=== PATIENT | male | born 1995 | race Caucasian/White ===

== ENCOUNTER 2017-08-18 17:28 | Inpatient (IN) | payer MEDICAID ==
[~2017-08-18] VITALS: Ht 162.6 cm; Wt 68.7 kg
[~2017-08-18 17:28] MED LIST: BENZ1TAB10 PO; DSS100 PO; METO25 PO; PALI234D IM; TRAZ-144 PO
[2017-08-18] MEDS ORDERED: INFLUENZA VIRUS VACCINE QVS 2017-18 (3YR+)/PF 60 MCG/0.5 ML SYRINGE IM ONE (23:45)
[2017-08-19] MEDS: ZOLPIDEM TARTRATE 10 MG TABLET PO PRN (00:15)
[2017-08-19 02:30] VITALS: BP 109/72
[2017-08-19] MEDS ORDERED: PETROLATUM,WHITE 71 GM JELLY TP PRN (07:45)
[2017-08-19] MEDS ORDERED: ACETAMINOPHEN 325 MG TABLET PO PRN (07:45)
[2017-08-19] MEDS ORDERED: LOPERAMIDE HCL 2 MG CAPSULE PO PRN (07:45)
[2017-08-19] MEDS ORDERED: ALBUTEROL SULFATE HFA 90 MCG/PUFF 8 GM INHALER IH PRN (07:45)
[2017-08-19] MEDS ORDERED: MAG HYDROX/AL HYDROX/SIMETH ES 30 ML SUSPENSION UDCUP PO PRN (07:45)
[2017-08-19] MEDS ORDERED: BACITRACIN 28.4 GM OINTMENT TP PRN (07:45)
[2017-08-19] MEDS ORDERED: BENZOCAINE/MENTHOL LOZENGE MM PRN (07:45)
[2017-08-19] MEDS ORDERED: ONDANSETRON HCL 4 MG TABLET PO PRN (07:45)
[2017-08-19] MEDS ORDERED: IBUPROFEN 600 MG TABLET PO PRN (07:45)
[2017-08-19] MEDS ORDERED: CloNIDine HCL 0.1 MG TABLET PO PRN (07:45)
[2017-08-19 08:36] LABS: BASOPHILS % (AUTO) 0.6 % (0.0-2.0); HEMATOCRIT 48.9 % (41-53); HEMOGLOBIN 16.7 g/dL (13.5-17.5); LYMPHOCYTES # (AUTO) 2.1 K/uL (1.0-4.8); LYMPHOCYTES % (AUTO) 21.1 % (22.0-44.0); MEAN CORPUSCULAR HEMOGLOBIN 31.2 pg (26.0-34.0); MEAN CORPUSCULAR HGB CONC 34.2 G/dL (31.0-37.0); MEAN CORPUSCULAR VOLUME 91 fL (80-100); MONOCYTES # (AUTO) 1.1 K/uL (0.1-1.0); MONOCYTES % (AUTO) 11.3 % (2.0-9.0); NEUTROPHILS # (AUTO) 6.1 K/uL (1.8-7.7); PLATELET COUNT (AUTO) 251 K/uL (150-450); RED BLOOD CELL COUNT(AUTO) 5.36 MIL/uL (4.50-5.90); RED CELL DISTRIBUTION WIDTH 13.5 % (11.5-14.5); WHITE BLOOD COUNT (AUTO) 9.9 K/uL (4.5-11.0)
[2017-08-19 08:39] VITALS: BP 124/75
[2017-08-19] MEDS: LORazepam 2 MG TABLET PO PRN (09:08)
[2017-08-19] MEDS: HALOPERIDOL 5 MG TABLET PO PRN (09:09)
[2017-08-19 09:18] LABS: ALANINE AMINOTRANSFERASE 75 U/L (12-78); ALBUMIN 4.9 g/dL (3.4-5.0); ANION GAP 10 mmol/L (8-16); ASPARTATE AMINOTRANSFERASE 34 U/L (15-37); BILIRUBIN,TOTAL 2.3 mg/dL (0.1-1.0); CALCIUM, TOTAL 9.6 mg/dL (8.8-10.5); CARBON DIOXIDE 29 mmol/L (22-29); CHLORIDE 101 mmol/L (98-107); CHOL/HDL RATIO 2.4 (4.2-7.3); CREATININE 0.96 mg/dL (0.60-1.30); GLOMERULAR FILTR. RATE CALC > 60 mL/min (>60); POTASSIUM 3.5 mmol/L (3.5-5.1); SODIUM SERUM 140 mmol/L (136-145); THYROID STIMULATING HORMONE 3.31 uIU/mL (0.36-3.74); TOTAL PROTEIN, SERUM 8.6 g/dL (6.4-8.2); UREA NITROGEN, BLOOD 19 mg/dL (7-18)
[2017-08-19 11:37] LABS: HEMOGLOBIN A1C 5.5 % (4.5-6.2)
[2017-08-19 16:16] VITALS: BP 122/70
[2017-08-20 06:40] VITALS: BP 130/83
[2017-08-20 08:22] VITALS: BP 132/87
[2017-08-20] MEDS: LORazepam 2 MG TABLET PO PRN (09:45)
[2017-08-20] MEDS: HALOPERIDOL 5 MG TABLET PO PRN (09:45)
[2017-08-20 16:12] VITALS: BP 127/88
[2017-08-20] MEDS: TraZODone HCL 50 MG TABLET PO SCH (20:46)
[2017-08-20] MEDS: BENZTROPINE MESYLATE 1 MG TABLET PO SCH (20:46)
[2017-08-21 06:00] VITALS: BP 138/83
[2017-08-21] MEDS: LORazepam 2 MG TABLET PO PRN ×2 (06:00→16:43)
[2017-08-21 08:16] VITALS: BP 122/88
[2017-08-21] MEDS ORDERED: PALIPERIDONE PALMITATE 234 MG/1.5 ML SYRINGE IM SCH (09:00)
[2017-08-21 16:02] VITALS: BP 130/72
[2017-08-21] MEDS: TraZODone HCL 50 MG TABLET PO SCH (20:09)
[2017-08-21] MEDS: BENZTROPINE MESYLATE 1 MG TABLET PO SCH (20:09)
[2017-08-22 00:52] VITALS: BP 112/65
[2017-08-22] MEDS: LORazepam 2 MG TABLET PO PRN ×2 (03:40→16:31)
[2017-08-22 08:10] VITALS: BP 132/91
[2017-08-22] MEDS: MAGNESIUM HYDROXIDE SUSPENSION 30 ML UDCUP PO PRN (14:27)
[2017-08-22 16:25] VITALS: BP 140/86
[2017-08-22] MEDS: BENZTROPINE MESYLATE 1 MG TABLET PO SCH (20:25)
[2017-08-22] MEDS: TraZODone HCL 50 MG TABLET PO SCH (20:25)
[2017-08-23] MEDS: MAGNESIUM CITRATE 300 ML ORAL SOLUTION PO PRN (06:18)
[2017-08-23 06:25] VITALS: BP 140/87
[2017-08-23 09:33] VITALS: BP 131/88
[2017-08-23] MEDS: MAGNESIUM HYDROXIDE SUSPENSION 30 ML UDCUP PO PRN (10:58)
[2017-08-23 16:34] VITALS: BP 132/80
[2017-08-23] MEDS: BENZTROPINE MESYLATE 1 MG TABLET PO SCH (20:01)
[2017-08-23] MEDS: TraZODone HCL 50 MG TABLET PO SCH (20:01)
[2017-08-23] MEDS: ZOLPIDEM TARTRATE 10 MG TABLET PO PRN (22:12)
[2017-08-24 06:39] VITALS: BP 130/83
[2017-08-24 09:36] VITALS: BP 137/101
[2017-08-24 16:10] VITALS: BP 120/80
[2017-08-24] MEDS: BENZTROPINE MESYLATE 1 MG TABLET PO SCH (20:10)
[2017-08-24] MEDS: TraZODone HCL 50 MG TABLET PO SCH (20:10)
[2017-08-25 00:38] VITALS: BP 125/78
[2017-08-25] MEDS: LORazepam 2 MG TABLET PO PRN (00:44)
[2017-08-25] MEDS: HALOPERIDOL 5 MG TABLET PO PRN (00:44)
[2017-08-25 08:08] VITALS: BP 133/85
[2017-08-25 16:28] VITALS: BP 129/78
[2017-08-25] MEDS: BENZTROPINE MESYLATE 1 MG TABLET PO SCH (20:09)
[2017-08-25] MEDS: TraZODone HCL 50 MG TABLET PO SCH (20:09)
[2017-08-26 05:52] VITALS: BP 140/78
[2017-08-26 08:30] VITALS: BP 144/81
[2017-08-26] MEDS: MAGNESIUM CITRATE 300 ML ORAL SOLUTION PO PRN (09:49)
[2017-08-26 16:18] VITALS: BP 153/85
== END 2017-08-26 18:15 | disposition home or self-care (01) | DRG 750 ==
LOC: B2S 22:23
PROVIDERS: ADMIT Psychiatry & Neurology Psychiatry; ATTEND Psychiatry & Neurology Psychiatry
DX: F25.9 Schizoaffective disorder, unspecified (principal); F84.5 Asperger's syndrome; F12.90 Cannabis use, unspecified, uncomplicated; G47.00 Insomnia, unspecified; K59.00 Constipation, unspecified; R51 Headache; Z28.21 Immunization not carried out because of patient refusal; Z71.51 Drug abuse counseling and surveillance of drug abuser
CPT/HCPCS: 83036; 84439; 84443; 84520; 90471

== ENCOUNTER 2017-09-23 02:26 | Inpatient (IN) | payer MEDICAID ==
[~2017-09-23] VITALS: Ht 167.6 cm; Wt 65.8 kg
[~2017-09-23 02:26] MED LIST changes: -DSS100 PO; -METO25 PO
[2017-09-23] MEDS ORDERED: LORazepam 1 MG TABLET PO PRN ×2 (03:00→07:00)
[2017-09-23 04:20] VITALS: BP 139/75
[2017-09-23] MEDS ORDERED: INFLUENZA VIRUS VACCINE QVS 2017-18 (3YR+)/PF 60 MCG/0.5 ML SYRINGE IM ONE (04:30)
[2017-09-23] MEDS: LORazepam 2 MG TABLET PO PRN ×3 (04:54→20:31)
[2017-09-23] MEDS: HALOPERIDOL 5 MG TABLET PO PRN ×2 (04:54→16:03)
[2017-09-23] MEDS ORDERED: CloNIDine HCL 0.1 MG TABLET PO PRN (07:00)
[2017-09-23] MEDS ORDERED: ONDANSETRON HCL 4 MG TABLET PO PRN (07:00)
[2017-09-23] MEDS ORDERED: ALBUTEROL SULFATE HFA 90 MCG/PUFF 8 GM INHALER IH PRN (07:00)
[2017-09-23] MEDS ORDERED: ACETAMINOPHEN 325 MG TABLET PO PRN (07:00)
[2017-09-23] MEDS ORDERED: PETROLATUM,WHITE 71 GM JELLY TP PRN (07:00)
[2017-09-23] MEDS ORDERED: BENZOCAINE/MENTHOL LOZENGE MM PRN (07:00)
[2017-09-23] MEDS ORDERED: BACITRACIN 28.4 GM OINTMENT TP PRN (07:00)
[2017-09-23] MEDS ORDERED: MAG HYDROX/AL HYDROX/SIMETH ES 30 ML SUSPENSION UDCUP PO PRN (07:00)
[2017-09-23] MEDS ORDERED: LOPERAMIDE HCL 2 MG CAPSULE PO PRN (07:00)
[2017-09-23 08:20] VITALS: BP 132/83
[2017-09-23] MEDS ORDERED: PALI234D IM (08:53)
[2017-09-23 16:41] VITALS: BP 135/81
[2017-09-23] MEDS: ZOLPIDEM TARTRATE 10 MG TABLET PO PRN (20:31)
[2017-09-24 07:37] VITALS: BP 138/64
[2017-09-24 07:58] LABS: BASOPHILS # (AUTO) 0.03 K/uL (0.00-0.20); BASOPHILS % (AUTO) 0.3 % (0.0-2.0); EOSINOPHILS # (AUTO) 0.09 K/uL (0.00-0.70); EOSINOPHILS % (AUTO) 0.86 % (1.0-6.0); HEMOGLOBIN 14.6 g/dL (13.5-17.5); LYMPHOCYTES # (AUTO) 1.1 K/uL (1.0-4.8); LYMPHOCYTES % (AUTO) 10.8 % (22.0-44.0); MEAN CORPUSCULAR HGB CONC 33.9 G/dL (31.0-37.0); MEAN CORPUSCULAR VOLUME 89 fL (80-100); MONOCYTES # (AUTO) 0.9 K/uL (0.1-1.0); MONOCYTES % (AUTO) 9.2 % (2.0-9.0); NEUTROPHILS % (AUTO) 78.9 % (40.0-70.0); PLATELET COUNT (AUTO) 209 K/uL (150-450); RED BLOOD CELL COUNT(AUTO) 4.84 MIL/uL (4.50-5.90); RED CELL DISTRIBUTION WIDTH 13.3 % (11.5-14.5)
[2017-09-24 08:20] LABS: ALANINE AMINOTRANSFERASE 25 U/L (12-78); ALBUMIN 4.5 g/dL (3.4-5.0); ALKALINE PHOSPHATASE 57 U/L (46-116); ANION GAP 12 mmol/L (8-16); ASPARTATE AMINOTRANSFERASE 17 U/L (15-37); BILIRUBIN,TOTAL 1.4 mg/dL (0.1-1.0); CALCIUM, TOTAL 9.4 mg/dL (8.8-10.5); CARBON DIOXIDE 27 mmol/L (22-29); CHLORIDE 102 mmol/L (98-107); CHOL/HDL RATIO 2.7 (4.2-7.3); CHOLESTEROL 162 mg/dL (131-200); CREATININE 0.92 mg/dL (0.60-1.30); FREE T4 (FREE THYROXINE) 1.42 ng/dL (0.76-1.46); GLOMERULAR FILTR. RATE CALC > 60 mL/min (>60); GLUCOSE,RANDOM 112 mg/dL (70-110); HDL CHOLESTEROL 61 mg/dL (40-60); LDL CHOL (CALC.) 94 mg/dL (0-130); POTASSIUM 3.6 mmol/L (3.5-5.1); SODIUM SERUM 141 mmol/L (136-145); TOTAL PROTEIN, SERUM 7.7 g/dL (6.4-8.2); TRIGLYCERIDES 36 mg/dL (15-150); UREA NITROGEN, BLOOD 16 mg/dL (7-18)
[2017-09-24 08:33] VITALS: BP 132/85
[2017-09-24] MEDS: HALOPERIDOL 5 MG TABLET PO PRN ×2 (10:42→16:03)
[2017-09-24] MEDS: LORazepam 2 MG TABLET PO PRN ×3 (10:42→20:40)
[2017-09-24 16:00] VITALS: BP 130/81
[2017-09-24] MEDS: TraZODone HCL 50 MG TABLET PO SCH (20:39)
[2017-09-24] MEDS: BENZTROPINE MESYLATE 1 MG TABLET PO SCH (20:39)
[2017-09-24] MEDS: ZOLPIDEM TARTRATE 10 MG TABLET PO PRN (20:40)
[2017-09-25 07:03] VITALS: BP 129/86
[2017-09-25 08:52] VITALS: BP 125/64
[2017-09-25] MEDS: HALOPERIDOL 5 MG TABLET PO PRN ×2 (08:53→16:06)
[2017-09-25] MEDS: LORazepam 2 MG TABLET PO PRN ×3 (08:53→20:56)
[2017-09-25 16:00] VITALS: BP 121/68
[2017-09-25] MEDS: TraZODone HCL 50 MG TABLET PO SCH (20:36)
[2017-09-25] MEDS: BENZTROPINE MESYLATE 1 MG TABLET PO SCH (20:36)
[2017-09-25] MEDS: ZOLPIDEM TARTRATE 10 MG TABLET PO PRN (20:55)
[2017-09-26 06:08] VITALS: BP 125/72
[2017-09-26 08:07] VITALS: BP 137/63
[2017-09-26 16:15] VITALS: BP 126/72
[2017-09-26] MEDS: MAGNESIUM HYDROXIDE SUSPENSION 30 ML UDCUP PO PRN (19:02)
[2017-09-26] MEDS: BENZTROPINE MESYLATE 1 MG TABLET PO SCH (20:21)
[2017-09-26] MEDS: TraZODone HCL 50 MG TABLET PO SCH (20:21)
[2017-09-26] MEDS: ZOLPIDEM TARTRATE 10 MG TABLET PO PRN (20:21)
[2017-09-27] MEDS: MAGNESIUM HYDROXIDE SUSPENSION 30 ML UDCUP PO PRN (06:35)
[2017-09-27 06:57] VITALS: BP 115/63
[2017-09-27 08:38] VITALS: BP 146/75
[2017-09-27 16:00] VITALS: BP 137/73
[2017-09-27] MEDS: HALOPERIDOL 5 MG TABLET PO PRN (16:18)
[2017-09-27] MEDS: LORazepam 2 MG TABLET PO PRN (16:18)
[2017-09-27] MEDS: BENZTROPINE MESYLATE 1 MG TABLET PO SCH (20:41)
[2017-09-27] MEDS: TraZODone HCL 50 MG TABLET PO SCH (20:41)
[2017-09-28 05:31] VITALS: BP 132/76
[2017-09-28 08:35] VITALS: BP 121/67
[2017-09-28 16:00] VITALS: BP 130/74
[2017-09-28] MEDS: HALOPERIDOL 5 MG TABLET PO PRN (16:15)
[2017-09-28] MEDS: LORazepam 2 MG TABLET PO PRN (16:15)
[2017-09-28] MEDS: BENZTROPINE MESYLATE 1 MG TABLET PO SCH (20:32)
[2017-09-28] MEDS: TraZODone HCL 50 MG TABLET PO SCH (20:32)
[2017-09-29 07:04] VITALS: BP 125/75
[2017-09-29] MEDS: LORazepam 2 MG TABLET PO PRN ×2 (08:02→15:52)
[2017-09-29] MEDS: HALOPERIDOL 5 MG TABLET PO PRN ×2 (08:02→15:52)
[2017-09-29 08:08] VITALS: BP 147/76
[2017-09-29 16:00] VITALS: BP 125/77
[2017-09-29] MEDS: TraZODone HCL 50 MG TABLET PO SCH (20:01)
[2017-09-29] MEDS: BENZTROPINE MESYLATE 1 MG TABLET PO SCH (20:01)
[2017-09-29] MEDS: MAGNESIUM HYDROXIDE SUSPENSION 30 ML UDCUP PO PRN (20:32)
[2017-09-30 07:15] VITALS: BP_DIAS 127
[2017-09-30 08:22] VITALS: BP 138/66
[2017-09-30] MEDS: PALIPERIDONE PALMITATE 234 MG/1.5 ML SYRINGE IM SCH (12:56)
[2017-09-30] MEDS: SODIUM CHLORIDE 0.65% 44 ML NASAL SPRAY NASAL PRN (13:03)
[2017-09-30 16:00] VITALS: BP 121/83
[2017-09-30] MEDS: HALOPERIDOL 5 MG TABLET PO PRN (16:57)
[2017-09-30] MEDS: LORazepam 2 MG TABLET PO PRN (16:57)
[2017-09-30] MEDS: BENZTROPINE MESYLATE 1 MG TABLET PO SCH (20:49)
[2017-09-30] MEDS: TraZODone HCL 50 MG TABLET PO SCH (20:49)
[2017-10-01 00:50] VITALS: BP 124/63
[2017-10-01 08:15] VITALS: BP 134/69
[2017-10-01 16:00] VITALS: BP 135/88
[2017-10-01] MEDS: LORazepam 2 MG TABLET PO PRN (16:15)
[2017-10-01] MEDS: HALOPERIDOL 5 MG TABLET PO PRN (16:15)
[2017-10-01] MEDS: BENZTROPINE MESYLATE 1 MG TABLET PO SCH (20:28)
[2017-10-01] MEDS: TraZODone HCL 50 MG TABLET PO SCH (20:28)
[2017-10-02 06:13] VITALS: BP 130/83
[2017-10-02] MEDS: SODIUM CHLORIDE 0.65% 44 ML NASAL SPRAY NASAL PRN (06:48)
[2017-10-02 08:22] VITALS: BP 131/71
[2017-10-02 16:27] VITALS: BP 133/76
[2017-10-02] MEDS: HALOPERIDOL 5 MG TABLET PO PRN (17:00)
[2017-10-02] MEDS: LORazepam 2 MG TABLET PO PRN (17:00)
[2017-10-02] MEDS: BENZTROPINE MESYLATE 1 MG TABLET PO SCH (21:08)
[2017-10-02] MEDS: ZOLPIDEM TARTRATE 10 MG TABLET PO PRN (21:09)
[2017-10-02] MEDS: TraZODone HCL 50 MG TABLET PO SCH (21:09)
[2017-10-03 08:09] VITALS: BP 132/84
[2017-10-03 16:00] VITALS: BP 136/87
[2017-10-03] MEDS: MAGNESIUM HYDROXIDE SUSPENSION 30 ML UDCUP PO PRN (18:00)
[2017-10-03] MEDS: ZOLPIDEM TARTRATE 10 MG TABLET PO PRN (20:28)
[2017-10-03] MEDS: TraZODone HCL 50 MG TABLET PO SCH (20:28)
[2017-10-03] MEDS: BENZTROPINE MESYLATE 1 MG TABLET PO SCH (20:28)
[2017-10-04 05:13] VITALS: BP 127/64
[2017-10-04 08:18] VITALS: BP 136/81
[2017-10-04] MEDS: MAGNESIUM HYDROXIDE SUSPENSION 30 ML UDCUP PO PRN (13:29)
[2017-10-04 16:00] VITALS: BP 132/83
[2017-10-04] MEDS: IBUPROFEN 600 MG TABLET PO PRN (17:02)
[2017-10-04] MEDS: HALOPERIDOL 5 MG TABLET PO PRN (17:53)
[2017-10-04] MEDS: LORazepam 2 MG TABLET PO PRN (17:53)
[2017-10-04] MEDS: BENZTROPINE MESYLATE 1 MG TABLET PO SCH (20:33)
[2017-10-04] MEDS: ZOLPIDEM TARTRATE 10 MG TABLET PO PRN (20:33)
[2017-10-04] MEDS: TraZODone HCL 50 MG TABLET PO SCH (20:33)
[2017-10-05 07:10] VITALS: BP 128/85
[2017-10-05 08:12] VITALS: BP 110/67
[2017-10-05] MEDS: LORazepam 2 MG TABLET PO PRN ×2 (08:30→16:22)
[2017-10-05] MEDS: HALOPERIDOL 5 MG TABLET PO PRN ×2 (08:30→16:22)
[2017-10-05 16:00] VITALS: BP 116/72
[2017-10-05] MEDS: TraZODone HCL 50 MG TABLET PO SCH (20:58)
[2017-10-05] MEDS: BENZTROPINE MESYLATE 1 MG TABLET PO SCH (20:58)
[2017-10-06 05:43] VITALS: BP 118/67
[2017-10-06] MEDS: HALOPERIDOL 5 MG TABLET PO PRN (09:21)
[2017-10-06] MEDS: LORazepam 2 MG TABLET PO PRN (09:21)
[2017-10-06 09:37] VITALS: BP 125/80
[2017-10-06 16:19] VITALS: BP 126/66
[2017-10-06] MEDS: BENZTROPINE MESYLATE 1 MG TABLET PO SCH (20:17)
[2017-10-06] MEDS: TraZODone HCL 50 MG TABLET PO SCH (20:17)
[2017-10-07 00:17] VITALS: BP 118/74
[2017-10-07] MEDS: LORazepam 2 MG TABLET PO PRN ×2 (08:15→16:58)
[2017-10-07 08:16] VITALS: BP 117/62
[2017-10-07] MEDS: HALOPERIDOL 5 MG TABLET PO PRN ×2 (09:43→16:59)
[2017-10-07 16:00] VITALS: BP 118/68
[2017-10-07] MEDS: TraZODone HCL 50 MG TABLET PO SCH (21:10)
[2017-10-07] MEDS: BENZTROPINE MESYLATE 1 MG TABLET PO SCH (21:10)
[2017-10-08 06:41] VITALS: BP 107/63
[2017-10-08 08:52] VITALS: BP 93/55
[2017-10-08 16:00] VITALS: BP 127/70
[2017-10-08] MEDS: TraZODone HCL 50 MG TABLET PO SCH (20:10)
[2017-10-08] MEDS: ZOLPIDEM TARTRATE 10 MG TABLET PO PRN (20:10)
[2017-10-08] MEDS: BENZTROPINE MESYLATE 1 MG TABLET PO SCH (20:10)
[2017-10-09] MEDS: SODIUM CHLORIDE 0.65% 44 ML NASAL SPRAY NASAL PRN (02:35)
[2017-10-09 06:38] VITALS: BP 122/68
[2017-10-09] MEDS: LORazepam 2 MG TABLET PO PRN ×2 (08:08→16:31)
[2017-10-09] MEDS: HALOPERIDOL 5 MG TABLET PO PRN ×2 (08:08→16:31)
[2017-10-09 08:09] VITALS: BP 127/64
[2017-10-09 16:00] VITALS: BP 114/70
[2017-10-09] MEDS: BENZTROPINE MESYLATE 1 MG TABLET PO SCH (20:48)
[2017-10-09] MEDS: TraZODone HCL 50 MG TABLET PO SCH (20:48)
[2017-10-09] MEDS: ZOLPIDEM TARTRATE 10 MG TABLET PO PRN (20:49)
[2017-10-10 06:25] VITALS: BP 101/60
[2017-10-10 08:22] VITALS: BP 110/86
[2017-10-10 16:11] VITALS: BP 117/72
[2017-10-10] MEDS: HALOPERIDOL 5 MG TABLET PO PRN (16:49)
[2017-10-10] MEDS: LORazepam 2 MG TABLET PO PRN (16:49)
[2017-10-10] MEDS: ZOLPIDEM TARTRATE 10 MG TABLET PO PRN (21:08)
[2017-10-10] MEDS: BENZTROPINE MESYLATE 1 MG TABLET PO SCH (21:08)
[2017-10-10] MEDS: TraZODone HCL 50 MG TABLET PO SCH (21:08)
[2017-10-11 06:41] VITALS: BP 122/74
[2017-10-11 09:41] VITALS: BP 122/88
[2017-10-11] MEDS: LORazepam 2 MG TABLET PO PRN ×2 (16:19→20:31)
[2017-10-11] MEDS: HALOPERIDOL 5 MG TABLET PO PRN ×2 (16:19→21:26)
[2017-10-11 16:30] VITALS: BP 135/85
[2017-10-11] MEDS: BENZTROPINE MESYLATE 1 MG TABLET PO SCH (20:31)
[2017-10-11] MEDS: TraZODone HCL 50 MG TABLET PO SCH (20:31)
[2017-10-11] MEDS: ZOLPIDEM TARTRATE 10 MG TABLET PO PRN (20:32)
[2017-10-12 05:10] VITALS: BP 101/64
[2017-10-12 08:09] VITALS: BP 123/82
[2017-10-12 09:02] LABS: AMPHET/METH SCREEN,URINE NEGATIVE (NEGATIVE); BARBITURATE SCREEN, URINE NEGATIVE (NEGATIVE); BENZODIAZEPINES SCREEN,URINE NEGATIVE (NEGATIVE); CANNABINOID SCREEN,URINE NEGATIVE (NEGATIVE); COCAINE SCREEN,URINE NEGATIVE (NEGATIVE); METHADONE SCREEN, URINE NEGATIVE (NEGATIVE); OPIATE SCREEN,URINE NEGATIVE (NEGATIVE)
[2017-10-12 09:04] LABS: PHENCYCLIDINE SCREEN,URINE NEGATIVE (NEGATIVE)
[2017-10-12 09:27] LABS: APPEARANCE,URINE CLEAR (CLEAR); BILIRUBIN,URINE NEGATIVE (NEGATIVE); GLUCOSE, URINE (UA) NEGATIVE (NEGATIVE); KETONES,URINE NEGATIVE (NEGATIVE); LEUKOCYTE ESTERASE ,URINE NEGATIVE (NEGATIVE); NITRATE,URINE NEGATIVE (NEGATIVE); OCCULT BLOOD,URINE NEGATIVE (NEGATIVE); PH,URINE 6.5 (5.0-8.0); PROTEIN,URINE NEGATIVE (NEGATIVE); UROBILINOGEN,URINE 0.2 mg/dL (<=1.0)
[2017-10-12 16:00] VITALS: BP 114/65
[2017-10-12] MEDS: HALOPERIDOL 5 MG TABLET PO PRN (16:07)
[2017-10-12] MEDS: LORazepam 2 MG TABLET PO PRN (16:07)
[2017-10-12] MEDS: TraZODone HCL 50 MG TABLET PO SCH (20:38)
[2017-10-12] MEDS: BENZTROPINE MESYLATE 1 MG TABLET PO SCH (20:38)
[2017-10-13 07:24] VITALS: BP 118/57
[2017-10-13 08:09] VITALS: BP 112/67
[2017-10-13 16:00] VITALS: BP 119/66
[2017-10-13] MEDS: LORazepam 2 MG TABLET PO PRN (16:41)
[2017-10-13] MEDS: HALOPERIDOL 5 MG TABLET PO PRN (16:41)
[2017-10-13] MEDS: BENZTROPINE MESYLATE 1 MG TABLET PO SCH (20:50)
[2017-10-13] MEDS: TraZODone HCL 50 MG TABLET PO SCH (20:50)
[2017-10-14 06:40] VITALS: BP 116/77
[2017-10-14 08:14] VITALS: BP 129/82
[2017-10-14] MEDS ORDERED: TUBERCULIN, PURIFIED PROTEIN DERIVATIVE 5 TU/0.1 ML SYG ID ONE (13:15)
[2017-10-14 16:00] VITALS: BP 123/76
[2017-10-14] MEDS: HALOPERIDOL 5 MG TABLET PO PRN (16:10)
[2017-10-14] MEDS: LORazepam 2 MG TABLET PO PRN ×2 (16:11→20:39)
[2017-10-14] MEDS: BENZTROPINE MESYLATE 1 MG TABLET PO SCH (20:39)
[2017-10-14] MEDS: TraZODone HCL 50 MG TABLET PO SCH (20:39)
[2017-10-15 03:24] VITALS: BP 111/73
[2017-10-15] MEDS: ZOLPIDEM TARTRATE 10 MG TABLET PO PRN ×2 (03:27→23:45)
[2017-10-15 09:14] VITALS: BP 114/57
[2017-10-15 16:54] VITALS: BP 124/70
[2017-10-15] MEDS: TraZODone HCL 50 MG TABLET PO SCH (20:24)
[2017-10-15] MEDS: BENZTROPINE MESYLATE 1 MG TABLET PO SCH (20:24)
[2017-10-16 00:09] VITALS: BP 127/74
[2017-10-16 08:27] VITALS: BP 113/72
[2017-10-16 16:00] VITALS: BP 118/68
[2017-10-16] MEDS: TraZODone HCL 50 MG TABLET PO SCH (20:28)
[2017-10-16] MEDS: BENZTROPINE MESYLATE 1 MG TABLET PO SCH (20:28)
[2017-10-16] MEDS: ZOLPIDEM TARTRATE 10 MG TABLET PO PRN (20:28)
[2017-10-17 08:16] VITALS: BP 115/69
[2017-10-17] MEDS: HALOPERIDOL 5 MG TABLET PO PRN ×2 (09:26→16:49)
[2017-10-17] MEDS: LORazepam 2 MG TABLET PO PRN ×2 (09:26→16:48)
[2017-10-17 16:00] VITALS: BP 113/74
[2017-10-17] MEDS: BENZTROPINE MESYLATE 1 MG TABLET PO SCH (20:38)
[2017-10-17] MEDS: TraZODone HCL 50 MG TABLET PO SCH (20:38)
[2017-10-18 06:26] VITALS: BP 125/75
[2017-10-18 08:00] VITALS: BP 110/67
[2017-10-18 16:00] VITALS: BP 120/70
[2017-10-18] MEDS: ZOLPIDEM TARTRATE 10 MG TABLET PO PRN (20:20)
[2017-10-18] MEDS: TraZODone HCL 50 MG TABLET PO SCH (20:20)
[2017-10-18] MEDS: BENZTROPINE MESYLATE 1 MG TABLET PO SCH (20:20)
[2017-10-19 06:09] VITALS: BP 126/82
[2017-10-19 08:09] VITALS: BP 132/76
[2017-10-19 16:24] VITALS: BP 121/80
[2017-10-19] MEDS: LORazepam 2 MG TABLET PO PRN (18:54)
[2017-10-19] MEDS: BENZTROPINE MESYLATE 1 MG TABLET PO SCH (21:16)
[2017-10-19] MEDS: TraZODone HCL 50 MG TABLET PO SCH (21:16)
[2017-10-20 06:51] VITALS: BP 115/68
[2017-10-20 08:08] VITALS: BP 109/72
[2017-10-20] MEDS: LORazepam 2 MG TABLET PO PRN (10:27)
[2017-10-20 16:56] VITALS: BP 114/85
[2017-10-20] MEDS: BENZTROPINE MESYLATE 1 MG TABLET PO SCH (20:34)
[2017-10-20] MEDS: TraZODone HCL 50 MG TABLET PO SCH (20:34)
[2017-10-20] MEDS: ZOLPIDEM TARTRATE 10 MG TABLET PO PRN (20:56)
[2017-10-21 05:59] VITALS: BP 108/75
[2017-10-21 09:36] VITALS: BP 91/57
[2017-10-21 16:19] VITALS: BP 118/66
[2017-10-21] MEDS: BENZTROPINE MESYLATE 1 MG TABLET PO SCH (20:12)
[2017-10-21] MEDS: TraZODone HCL 50 MG TABLET PO SCH (20:12)
[2017-10-21] MEDS: LORazepam 2 MG TABLET PO PRN (20:21)
[2017-10-21] MEDS: ZOLPIDEM TARTRATE 10 MG TABLET PO PRN (20:55)
[2017-10-22 06:18] VITALS: BP 110/70
[2017-10-22 08:15] VITALS: BP 120/67
[2017-10-22 16:16] VITALS: BP 117/63
[2017-10-22] MEDS: TraZODone HCL 50 MG TABLET PO SCH (20:44)
[2017-10-22] MEDS: BENZTROPINE MESYLATE 1 MG TABLET PO SCH (20:45)
[2017-10-22] MEDS: ZOLPIDEM TARTRATE 10 MG TABLET PO PRN (22:20)
[2017-10-23 06:17] VITALS: BP 118/81
[2017-10-23 09:20] VITALS: BP 100/60
[2017-10-23] MEDS: IBUPROFEN 600 MG TABLET PO PRN (09:37)
[2017-10-23 16:48] VITALS: BP 111/66
[2017-10-23] MEDS: BENZTROPINE MESYLATE 1 MG TABLET PO SCH (20:31)
[2017-10-23] MEDS: TraZODone HCL 50 MG TABLET PO SCH (20:31)
[2017-10-23] MEDS: ZOLPIDEM TARTRATE 10 MG TABLET PO PRN (20:32)
[2017-10-24 06:30] VITALS: BP 115/66
[2017-10-24 09:36] VITALS: BP 105/65
[2017-10-24 17:11] VITALS: BP 121/75
[2017-10-24] MEDS: BENZTROPINE MESYLATE 1 MG TABLET PO SCH (20:06)
[2017-10-24] MEDS: TraZODone HCL 50 MG TABLET PO SCH (20:06)
[2017-10-25 00:39] VITALS: BP 136/90
[2017-10-25] MEDS: ZOLPIDEM TARTRATE 10 MG TABLET PO PRN (00:44)
[2017-10-25 09:09] VITALS: BP 125/91
[2017-10-25 17:00] VITALS: BP 135/83
[2017-10-25] MEDS: TraZODone HCL 50 MG TABLET PO SCH (21:09)
[2017-10-25] MEDS: BENZTROPINE MESYLATE 1 MG TABLET PO SCH (21:09)
[2017-10-26 00:40] VITALS: BP 136/80
[2017-10-26] MEDS: ZOLPIDEM TARTRATE 10 MG TABLET PO PRN ×2 (00:41→23:46)
[2017-10-26 08:53] VITALS: BP 120/78
[2017-10-26 16:37] VITALS: BP 110/88
[2017-10-26] MEDS: TraZODone HCL 50 MG TABLET PO SCH (21:18)
[2017-10-26] MEDS: BENZTROPINE MESYLATE 1 MG TABLET PO SCH (21:18)
[2017-10-26] MEDS: IBUPROFEN 600 MG TABLET PO PRN (23:46)
[2017-10-27 00:50] VITALS: BP 116/79
[2017-10-27 08:27] VITALS: BP 114/61
[2017-10-27 16:00] VITALS: BP 126/82
[2017-10-27] MEDS: LORazepam 2 MG TABLET PO PRN (18:18)
[2017-10-27] MEDS: HALOPERIDOL 5 MG TABLET PO PRN (18:18)
[2017-10-27] MEDS: TraZODone HCL 50 MG TABLET PO SCH (21:49)
[2017-10-27] MEDS: ZOLPIDEM TARTRATE 10 MG TABLET PO PRN (21:49)
[2017-10-27] MEDS: BENZTROPINE MESYLATE 1 MG TABLET PO SCH (21:49)
[2017-10-28 06:47] VITALS: BP 105/56
[2017-10-28] MEDS: LORazepam 2 MG TABLET PO PRN ×2 (08:29→13:10)
[2017-10-28] MEDS: PALIPERIDONE PALMITATE 234 MG/1.5 ML SYRINGE IM SCH (09:13)
[2017-10-28 10:19] VITALS: BP 126/82
[2017-10-28] MEDS: HALOPERIDOL 5 MG TABLET PO PRN (13:10)
[2017-10-28 16:41] VITALS: BP 110/76
[2017-10-28] MEDS: BENZTROPINE MESYLATE 1 MG TABLET PO SCH (20:04)
[2017-10-28] MEDS: TraZODone HCL 50 MG TABLET PO SCH (20:04)
[2017-10-29 02:11] VITALS: BP 104/74
[2017-10-29 08:00] VITALS: BP 122/74
[2017-10-29 16:00] VITALS: BP 123/78
[2017-10-29] MEDS: LORazepam 2 MG TABLET PO PRN (16:28)
[2017-10-29] MEDS: HALOPERIDOL 5 MG TABLET PO PRN (16:28)
[2017-10-29] MEDS: BENZTROPINE MESYLATE 1 MG TABLET PO SCH (20:08)
[2017-10-29] MEDS: TraZODone HCL 50 MG TABLET PO SCH (20:08)
[2017-10-30 00:01] VITALS: BP 111/64
[2017-10-30 08:59] VITALS: BP 110/55
[2017-10-30 16:00] VITALS: BP 116/66
[2017-10-30] MEDS: BENZTROPINE MESYLATE 1 MG TABLET PO SCH (20:09)
[2017-10-30] MEDS: TraZODone HCL 50 MG TABLET PO SCH (20:09)
[2017-10-31 04:23] VITALS: BP 114/68
[2017-10-31 07:47] LABS: BASOPHILS # (AUTO) 0.04 K/uL (0.00-0.20); BASOPHILS % (AUTO) 0.5 % (0.0-2.0); EOSINOPHILS # (AUTO) 0.78 K/uL (0.00-0.70); EOSINOPHILS % (AUTO) 9.86 % (1.0-6.0); HEMATOCRIT 43.4 % (41-53); HEMOGLOBIN 14.5 g/dL (13.5-17.5); LYMPHOCYTES # (AUTO) 1.8 K/uL (1.0-4.8); MEAN CORPUSCULAR HEMOGLOBIN 30.2 pg (26.0-34.0); MEAN CORPUSCULAR HGB CONC 33.4 G/dL (31.0-37.0); MEAN CORPUSCULAR VOLUME 90 fL (80-100); MONOCYTES # (AUTO) 0.8 K/uL (0.1-1.0); NEUTROPHILS # (AUTO) 4.5 K/uL (1.8-7.7); NEUTROPHILS % (AUTO) 56.7 % (40.0-70.0); PLATELET COUNT (AUTO) 190 K/uL (150-450); RED CELL DISTRIBUTION WIDTH 13.2 % (11.5-14.5)
[2017-10-31 08:42] LABS: ANION GAP 10 mmol/L (8-16); CALCIUM, TOTAL 9.2 mg/dL (8.8-10.5); CARBON DIOXIDE 27 mmol/L (22-29); CHLORIDE 105 mmol/L (98-107); CHOL/HDL RATIO 2.5 (4.2-7.3); CHOLESTEROL 104 mg/dL (131-200); GLOMERULAR FILTR. RATE CALC > 60 mL/min (>60); GLUCOSE,RANDOM 84 mg/dL (70-110); HDL CHOLESTEROL 41 mg/dL (40-60); LDL CHOL (CALC.) 52 mg/dL (0-130); PHOSPHORUS 4.2 mg/dL (2.5-4.9); POTASSIUM 4.4 mmol/L (3.5-5.1); SODIUM SERUM 142 mmol/L (136-145); THYROID STIMULATING HORMONE 1.26 uIU/mL (0.36-3.74); TRIGLYCERIDES 53 mg/dL (15-150); UREA NITROGEN, BLOOD 9 mg/dL (7-18)
[2017-10-31 08:55] VITALS: BP 115/69
[2017-10-31 16:00] VITALS: BP 123/74
[2017-10-31] MEDS: IBUPROFEN 600 MG TABLET PO PRN (18:05)
[2017-10-31 18:06] VITALS: BP 118/80
[2017-10-31] MEDS: BENZTROPINE MESYLATE 1 MG TABLET PO SCH (20:52)
[2017-10-31] MEDS: TraZODone HCL 50 MG TABLET PO SCH (20:52)
[2017-11-01 07:29] VITALS: BP 109/67
[2017-11-01 09:13] VITALS: BP 97/60
[2017-11-01 12:08] VITALS: BP 122/67
[2017-11-01 17:32] VITALS: BP 121/85
[2017-11-01] MEDS: IBUPROFEN 600 MG TABLET PO PRN (19:26)
[2017-11-01 19:27] VITALS: BP 119/76
[2017-11-01] MEDS: BENZTROPINE MESYLATE 1 MG TABLET PO SCH (20:04)
[2017-11-01] MEDS: TraZODone HCL 50 MG TABLET PO SCH (20:04)
[2017-11-01] MEDS: ZOLPIDEM TARTRATE 10 MG TABLET PO PRN (21:28)
[2017-11-02 06:37] VITALS: BP 105/63
[2017-11-02 10:25] VITALS: BP 101/62
[2017-11-02] MEDS: LORazepam 2 MG TABLET PO PRN (13:41)
[2017-11-02 16:23] VITALS: BP 109/65
[2017-11-02] MEDS: TraZODone HCL 50 MG TABLET PO SCH (20:37)
[2017-11-02] MEDS: BENZTROPINE MESYLATE 1 MG TABLET PO SCH (20:37)
[2017-11-03 07:15] VITALS: BP 120/76
[2017-11-03 08:59] VITALS: BP 110/79
[2017-11-03 11:09] VITALS: BP 157/91
[2017-11-03 16:32] VITALS: BP 116/65
[2017-11-03] MEDS: BENZTROPINE MESYLATE 1 MG TABLET PO SCH (20:51)
[2017-11-03] MEDS: TraZODone HCL 50 MG TABLET PO SCH (20:51)
[2017-11-04 06:41] VITALS: BP 114/66
[2017-11-04 09:02] VITALS: BP 113/91
[2017-11-04 16:21] VITALS: BP 110/66
[2017-11-04] MEDS: BENZTROPINE MESYLATE 1 MG TABLET PO SCH (20:37)
[2017-11-04] MEDS: TraZODone HCL 50 MG TABLET PO SCH (20:37)
[2017-11-04] MEDS: ZOLPIDEM TARTRATE 10 MG TABLET PO PRN (21:25)
[2017-11-05 06:05] VITALS: BP 113/68
[2017-11-05 08:49] VITALS: BP 106/71
[2017-11-05 16:40] VITALS: BP 123/66
[2017-11-05] MEDS: LORazepam 2 MG TABLET PO PRN (17:30)
[2017-11-05] MEDS: HALOPERIDOL 5 MG TABLET PO PRN (18:30)
[2017-11-05 19:57] VITALS: BP 119/69
[2017-11-05] MEDS: IBUPROFEN 600 MG TABLET PO PRN (19:57)
[2017-11-05] MEDS: BENZTROPINE MESYLATE 1 MG TABLET PO SCH (20:01)
[2017-11-05] MEDS: TraZODone HCL 50 MG TABLET PO SCH (20:01)
[2017-11-05] MEDS: ZOLPIDEM TARTRATE 10 MG TABLET PO PRN (20:45)
[2017-11-06 00:01] VITALS: BP 109/69
[2017-11-06 08:49] VITALS: BP 116/77
[2017-11-06 16:28] VITALS: BP 112/67
[2017-11-06] MEDS: BENZTROPINE MESYLATE 1 MG TABLET PO SCH (20:12)
[2017-11-06] MEDS: TraZODone HCL 50 MG TABLET PO SCH (20:12)
[2017-11-07 07:22] VITALS: BP 119/73
[2017-11-07 08:14] VITALS: BP 95/53
[2017-11-07 09:26] VITALS: BP 109/76
[2017-11-07 16:20] VITALS: BP 105/60
[2017-11-07] MEDS: TraZODone HCL 50 MG TABLET PO SCH (20:04)
[2017-11-07] MEDS: BENZTROPINE MESYLATE 1 MG TABLET PO SCH (20:04)
[2017-11-08 02:02] VITALS: BP 140/72
[2017-11-08] MEDS: ZOLPIDEM TARTRATE 10 MG TABLET PO PRN (02:05)
[2017-11-08 08:34] VITALS: BP 108/74
[2017-11-08 17:58] VITALS: BP 112/90
[2017-11-08 18:11] VITALS: BP 115/78
[2017-11-08] MEDS: BENZTROPINE MESYLATE 1 MG TABLET PO SCH (20:16)
[2017-11-08] MEDS: TraZODone HCL 50 MG TABLET PO SCH (20:16)
[2017-11-09 00:01] VITALS: BP 115/80
[2017-11-09] MEDS: ZOLPIDEM TARTRATE 10 MG TABLET PO PRN (00:09)
[2017-11-09 08:46] VITALS: BP 124/84
[2017-11-09 16:27] VITALS: BP 114/70
[2017-11-09] MEDS: TraZODone HCL 50 MG TABLET PO SCH (20:06)
[2017-11-09] MEDS: BENZTROPINE MESYLATE 1 MG TABLET PO SCH (20:06)
[2017-11-10 00:01] VITALS: BP 114/68
[2017-11-10] MEDS: ZOLPIDEM TARTRATE 10 MG TABLET PO PRN ×2 (00:14→21:51)
[2017-11-10 08:40] VITALS: BP 103/72
[2017-11-10 16:51] VITALS: BP 102/55
[2017-11-10] MEDS: BENZTROPINE MESYLATE 1 MG TABLET PO SCH (20:30)
[2017-11-10] MEDS: TraZODone HCL 50 MG TABLET PO SCH (20:30)
[2017-11-11 00:12] VITALS: BP 111/68
[2017-11-11 09:12] VITALS: BP 110/71
[2017-11-11 14:44] VITALS: BP 114/68
[2017-11-11] MEDS: LORazepam 2 MG TABLET PO PRN (14:44)
[2017-11-11] MEDS: HALOPERIDOL 5 MG TABLET PO PRN (15:43)
[2017-11-11 16:00] VITALS: BP 117/73
[2017-11-11] MEDS: TraZODone HCL 50 MG TABLET PO SCH (20:31)
[2017-11-11] MEDS: BENZTROPINE MESYLATE 1 MG TABLET PO SCH (20:31)
[2017-11-12 06:25] VITALS: BP 110/62
[2017-11-12 08:25] VITALS: BP 102/57
[2017-11-12 15:51] VITALS: BP 108/76
[2017-11-12 16:00] VITALS: BP 108/76
[2017-11-12] MEDS: BENZTROPINE MESYLATE 1 MG TABLET PO SCH (20:09)
[2017-11-12] MEDS: TraZODone HCL 50 MG TABLET PO SCH (20:09)
[2017-11-13 02:24] VITALS: BP 115/68
[2017-11-13 09:00] VITALS: BP 104/69
[2017-11-13 17:20] VITALS: BP 122/66
[2017-11-13] MEDS: BENZTROPINE MESYLATE 1 MG TABLET PO SCH (20:12)
[2017-11-13] MEDS: TraZODone HCL 50 MG TABLET PO SCH (20:12)
[2017-11-14 06:47] VITALS: BP 120/70
[2017-11-14 09:18] VITALS: BP 110/66
[2017-11-14 16:54] VITALS: BP 119/76
[2017-11-14] MEDS: LORazepam 2 MG TABLET PO PRN (17:29)
[2017-11-14] MEDS: HALOPERIDOL 5 MG TABLET PO PRN (18:12)
[2017-11-14] MEDS: TraZODone HCL 50 MG TABLET PO SCH (20:43)
[2017-11-14] MEDS: BENZTROPINE MESYLATE 1 MG TABLET PO SCH (20:43)
[2017-11-14] MEDS: ZOLPIDEM TARTRATE 10 MG TABLET PO PRN (20:43)
[2017-11-15 05:35] VITALS: BP 101/60
[2017-11-15 08:19] VITALS: BP 115/68
[2017-11-15 16:40] VITALS: BP 119/68
[2017-11-15] MEDS: BENZTROPINE MESYLATE 1 MG TABLET PO SCH (20:32)
[2017-11-15] MEDS: TraZODone HCL 50 MG TABLET PO SCH (20:32)
[2017-11-16 02:57] VITALS: BP 106/68
[2017-11-16 08:13] VITALS: BP 128/84
[2017-11-16] MEDS: LORazepam 2 MG TABLET PO PRN (16:14)
[2017-11-16 16:50] VITALS: BP 117/74
[2017-11-16] MEDS: BENZTROPINE MESYLATE 1 MG TABLET PO SCH (20:53)
[2017-11-16] MEDS: TraZODone HCL 50 MG TABLET PO SCH (20:53)
[2017-11-17 01:14] VITALS: BP 128/76
[2017-11-17 08:24] VITALS: BP 101/63
[2017-11-17 16:23] VITALS: BP 98/60
[2017-11-17] MEDS: TraZODone HCL 50 MG TABLET PO SCH (20:16)
[2017-11-17] MEDS: BENZTROPINE MESYLATE 1 MG TABLET PO SCH (20:16)
[2017-11-18 00:38] VITALS: BP 102/63
[2017-11-18 08:50] VITALS: BP 99/58
[2017-11-18 16:00] VITALS: BP 121/66
[2017-11-18] MEDS: TraZODone HCL 50 MG TABLET PO SCH (20:42)
[2017-11-18] MEDS: BENZTROPINE MESYLATE 1 MG TABLET PO SCH (20:42)
[2017-11-18] MEDS: ZOLPIDEM TARTRATE 10 MG TABLET PO PRN (22:07)
[2017-11-19 00:50] VITALS: BP 110/64
[2017-11-19 08:41] VITALS: BP 103/59
[2017-11-19] MEDS: LORazepam 2 MG TABLET PO PRN ×2 (12:41→19:35)
[2017-11-19] MEDS: HALOPERIDOL 5 MG TABLET PO PRN ×2 (13:12→19:35)
[2017-11-19 16:00] VITALS: BP 113/59
[2017-11-19] MEDS: BENZTROPINE MESYLATE 1 MG TABLET PO SCH (20:20)
[2017-11-19] MEDS: TraZODone HCL 50 MG TABLET PO SCH (20:21)
[2017-11-19] MEDS: ZOLPIDEM TARTRATE 10 MG TABLET PO PRN (20:21)
[2017-11-20] VITALS: BP 100/69
[2017-11-20 09:12] VITALS: BP 100/59
[2017-11-20 17:01] VITALS: BP 122/76
[2017-11-20] MEDS: TraZODone HCL 50 MG TABLET PO SCH (20:34)
[2017-11-20] MEDS: BENZTROPINE MESYLATE 1 MG TABLET PO SCH (20:34)
[2017-11-21 01:57] VITALS: BP 138/73
[2017-11-21] MEDS: ZOLPIDEM TARTRATE 10 MG TABLET PO PRN (02:00)
[2017-11-21 08:00] VITALS: BP 122/64
[2017-11-21 16:00] VITALS: BP 108/60
[2017-11-21] MEDS: TraZODone HCL 50 MG TABLET PO SCH (20:04)
[2017-11-21] MEDS: BENZTROPINE MESYLATE 1 MG TABLET PO SCH (20:04)
[2017-11-21 22:30] VITALS: BP 131/78
[2017-11-21] MEDS: LORazepam 2 MG TABLET PO PRN (22:36)
[2017-11-21] MEDS: HALOPERIDOL 5 MG TABLET PO PRN (22:36)
[2017-11-22] MEDS: ZOLPIDEM TARTRATE 10 MG TABLET PO PRN ×2 (00:13→21:16)
[2017-11-22 01:22] VITALS: BP 128/76
[2017-11-22 08:57] VITALS: BP 100/60
[2017-11-22 16:28] VITALS: BP 120/68
[2017-11-22] MEDS: LORazepam 2 MG TABLET PO PRN (18:55)
[2017-11-22] MEDS: HALOPERIDOL 5 MG TABLET PO PRN (19:50)
[2017-11-22] MEDS: BENZTROPINE MESYLATE 1 MG TABLET PO SCH (20:37)
[2017-11-22] MEDS: TraZODone HCL 50 MG TABLET PO SCH (20:37)
[2017-11-23 00:35] VITALS: BP 118/71
[2017-11-23 08:42] VITALS: BP 105/71
[2017-11-23 16:16] VITALS: BP 125/87
[2017-11-23] MEDS: HALOPERIDOL 5 MG TABLET PO PRN (19:13)
[2017-11-23] MEDS: LORazepam 2 MG TABLET PO PRN (19:13)
[2017-11-23] MEDS: BENZTROPINE MESYLATE 1 MG TABLET PO SCH (20:30)
[2017-11-23] MEDS: TraZODone HCL 50 MG TABLET PO SCH (20:30)
[2017-11-24 02:24] VITALS: BP 127/80
[2017-11-24] MEDS: ZOLPIDEM TARTRATE 10 MG TABLET PO PRN ×2 (02:28→22:08)
[2017-11-24 08:00] VITALS: BP 106/64
[2017-11-24 16:00] VITALS: BP 119/68
[2017-11-24] MEDS: LORazepam 2 MG TABLET PO PRN (19:13)
[2017-11-24] MEDS: HALOPERIDOL 5 MG TABLET PO PRN (19:13)
[2017-11-24] MEDS: TraZODone HCL 50 MG TABLET PO SCH (20:12)
[2017-11-24] MEDS: BENZTROPINE MESYLATE 1 MG TABLET PO SCH (20:12)
[2017-11-25 06:29] VITALS: BP 103/68
[2017-11-25 10:41] VITALS: BP 119/63
[2017-11-25] MEDS: PALIPERIDONE PALMITATE 234 MG/1.5 ML SYRINGE IM SCH (13:56)
[2017-11-25] MEDS: LORazepam 2 MG TABLET PO PRN (16:02)
[2017-11-25 16:43] VITALS: BP 111/64
[2017-11-25] MEDS: HALOPERIDOL 5 MG TABLET PO PRN (16:50)
[2017-11-25] MEDS: BENZTROPINE MESYLATE 1 MG TABLET PO SCH (20:32)
[2017-11-25] MEDS: TraZODone HCL 50 MG TABLET PO SCH (20:32)
[2017-11-25] MEDS: ZOLPIDEM TARTRATE 10 MG TABLET PO PRN (21:30)
[2017-11-26 06:05] VITALS: BP 103/66
[2017-11-26 08:37] VITALS: BP 138/85
[2017-11-26 16:19] VITALS: BP 102/60
[2017-11-26] MEDS: BENZTROPINE MESYLATE 1 MG TABLET PO SCH (20:26)
[2017-11-26] MEDS: TraZODone HCL 50 MG TABLET PO SCH (20:26)
[2017-11-26] MEDS: ZOLPIDEM TARTRATE 10 MG TABLET PO PRN (21:42)
[2017-11-27 00:34] VITALS: BP 106/68
[2017-11-27] MEDS: LORazepam 2 MG TABLET PO PRN (05:25)
[2017-11-27] MEDS: HALOPERIDOL 5 MG TABLET PO PRN (05:26)
[2017-11-27 09:32] VITALS: BP 100/60
[2017-11-27 16:20] VITALS: BP 112/66
[2017-11-27] MEDS: BENZTROPINE MESYLATE 1 MG TABLET PO SCH (20:19)
[2017-11-27] MEDS: TraZODone HCL 50 MG TABLET PO SCH (20:19)
[2017-11-27] MEDS: ZOLPIDEM TARTRATE 10 MG TABLET PO PRN (21:36)
[2017-11-28 07:02] VITALS: BP 115/79
[2017-11-28 08:43] VITALS: BP 117/64
[2017-11-28 16:15] VITALS: BP 111/72
[2017-11-28] MEDS: BENZTROPINE MESYLATE 1 MG TABLET PO SCH (20:17)
[2017-11-28] MEDS: TraZODone HCL 50 MG TABLET PO SCH (20:17)
[2017-11-28] MEDS: ZOLPIDEM TARTRATE 10 MG TABLET PO PRN (23:07)
[2017-11-29 01:00] VITALS: BP 134/79
[2017-11-29] MEDS: IBUPROFEN 600 MG TABLET PO PRN ×2 (01:04→22:33)
[2017-11-29 01:51] VITALS: BP_SYST 101; BP_SYST 134; BP_DIAS 69; BP_DIAS 79
[2017-11-29 08:54] VITALS: BP 103/63
[2017-11-29 16:32] VITALS: BP 135/73
[2017-11-29] MEDS: TraZODone HCL 50 MG TABLET PO SCH (20:01)
[2017-11-29] MEDS: BENZTROPINE MESYLATE 1 MG TABLET PO SCH (20:01)
[2017-11-29 22:33] VITALS: BP 128/80
[2017-11-30 00:47] VITALS: BP 130/81
[2017-11-30 00:52] VITALS: BP 136/77
[2017-11-30] MEDS: ZOLPIDEM TARTRATE 10 MG TABLET PO PRN ×2 (00:59→21:09)
[2017-11-30 08:15] VITALS: BP 112/60
[2017-11-30 16:23] VITALS: BP 114/70
[2017-11-30] MEDS: LORazepam 2 MG TABLET PO PRN (19:52)
[2017-11-30] MEDS: HALOPERIDOL 5 MG TABLET PO PRN (19:53)
[2017-11-30] MEDS: BENZTROPINE MESYLATE 1 MG TABLET PO SCH (20:22)
[2017-11-30] MEDS: TraZODone HCL 50 MG TABLET PO SCH (20:22)
[2017-12-01 06:06] VITALS: BP 104/62
[2017-12-01 08:35] LABS: ANION GAP 5 mmol/L (8-16); CALCIUM, TOTAL 9.3 mg/dL (8.8-10.5); CARBON DIOXIDE 31 mmol/L (22-29); CHLORIDE 100 mmol/L (98-107); CHOL/HDL RATIO 3.1 (4.2-7.3); CHOLESTEROL 116 mg/dL (131-200); CREATININE 1.11 mg/dL (0.60-1.30); GLOMERULAR FILTR. RATE CALC > 60 mL/min (>60); GLUCOSE,RANDOM 85 mg/dL (70-110); HDL CHOLESTEROL 37 mg/dL (40-60); LDL CHOL (CALC.) 65 mg/dL (0-130); PHOSPHORUS 4.5 mg/dL (2.5-4.9); POTASSIUM 3.6 mmol/L (3.5-5.1); SODIUM SERUM 136 mmol/L (136-145); THYROID STIMULATING HORMONE 2.04 uIU/mL (0.36-3.74); TRIGLYCERIDES 71 mg/dL (15-150); UREA NITROGEN, BLOOD 10 mg/dL (7-18)
[2017-12-01 08:38] VITALS: BP 115/68
[2017-12-01 08:46] LABS: HEMATOCRIT 45.5 % (41-53); HEMOGLOBIN 15.4 g/dL (13.5-17.5); MEAN CORPUSCULAR HEMOGLOBIN 30.1 pg (26.0-34.0); MEAN CORPUSCULAR HGB CONC 33.8 G/dL (31.0-37.0); MEAN CORPUSCULAR VOLUME 89 fL (80-100); PLATELET COUNT (AUTO) 216 K/uL (150-450)
[2017-12-01] MEDS: HALOPERIDOL 5 MG TABLET PO PRN (11:13)
[2017-12-01] MEDS: LORazepam 2 MG TABLET PO PRN (11:13)
[2017-12-01] MEDS ORDERED: LORazepam 2 MG/ML VIAL IM ONE (11:45)
[2017-12-01] MEDS ORDERED: HALOPERIDOL LACTATE 5 MG/ML VIAL IM ONE (11:45)
[2017-12-01] MEDS ORDERED: DiphenhydrAMINE HCL 50 MG/ML VIAL IM ONE (11:45)
[2017-12-01] MEDS ORDERED: LORazepam 2 MG/ML VIAL ONE (11:45)
[2017-12-01] MEDS ORDERED: HALOPERIDOL LACTATE 5 MG/ML VIAL ONE (11:46)
[2017-12-01] MEDS ORDERED: DiphenhydrAMINE HCL 50 MG/ML VIAL ONE (11:46)
[2017-12-01 12:46] LABS: EOSINOPHILS % (MANUAL) 1 % (1-6); LYMPHOCYTES % (MANUAL) 39 % (22-44); MONOCYTES % (MANUAL) 9 % (2-9); SEGMENTED NEUTROPHILS % 51 % (40-70)
[2017-12-01 16:45] VITALS: BP 102/60
[2017-12-01] MEDS: BENZTROPINE MESYLATE 1 MG TABLET PO SCH (20:46)
[2017-12-01] MEDS: TraZODone HCL 50 MG TABLET PO SCH (20:46)
[2017-12-02 01:59] VITALS: BP 110/83
[2017-12-02 16:21] VITALS: BP 100/60
[2017-12-02] MEDS: BENZTROPINE MESYLATE 1 MG TABLET PO SCH (21:05)
[2017-12-02] MEDS: TraZODone HCL 50 MG TABLET PO SCH (21:05)
[2017-12-03 03:10] VITALS: BP 134/77
[2017-12-03 08:42] VITALS: BP 98/57
[2017-12-03 16:14] VITALS: BP 120/80
[2017-12-03] MEDS: TraZODone HCL 50 MG TABLET PO SCH (20:03)
[2017-12-03] MEDS: BENZTROPINE MESYLATE 1 MG TABLET PO SCH (20:03)
[2017-12-03] MEDS: ZOLPIDEM TARTRATE 10 MG TABLET PO PRN (22:22)
[2017-12-04 06:57] VITALS: BP 102/60
[2017-12-04 16:00] VITALS: BP 124/69
[2017-12-04] MEDS: TraZODone HCL 50 MG TABLET PO SCH (20:28)
[2017-12-04] MEDS: BENZTROPINE MESYLATE 1 MG TABLET PO SCH (20:28)
[2017-12-05 00:05] VITALS: BP 119/75
[2017-12-05] MEDS: IBUPROFEN 600 MG TABLET PO PRN (00:20)
[2017-12-05] MEDS: ZOLPIDEM TARTRATE 10 MG TABLET PO PRN (00:20)
[2017-12-05 09:31] VITALS: BP 127/65
[2017-12-05 09:32] VITALS: BP 127/65
[2017-12-05 16:00] VITALS: BP 128/80
[2017-12-05] MEDS: LORazepam 2 MG TABLET PO PRN (16:14)
[2017-12-05] MEDS: HALOPERIDOL 5 MG TABLET PO PRN (16:14)
[2017-12-05] MEDS: BENZTROPINE MESYLATE 1 MG TABLET PO SCH (20:26)
[2017-12-05] MEDS: TraZODone HCL 50 MG TABLET PO SCH (20:26)
[2017-12-06 06:35] VITALS: BP 121/68
[2017-12-06 08:48] VITALS: BP 109/63
[2017-12-06 16:00] VITALS: BP 124/62
[2017-12-06] MEDS: BENZTROPINE MESYLATE 1 MG TABLET PO SCH (20:14)
[2017-12-06] MEDS: TraZODone HCL 50 MG TABLET PO SCH (20:14)
[2017-12-06] MEDS: ZOLPIDEM TARTRATE 10 MG TABLET PO PRN (20:55)
[2017-12-07 00:10] VITALS: BP 126/68
[2017-12-07 08:50] VITALS: BP 132/77
[2017-12-07 16:27] VITALS: BP 131/74
[2017-12-07] MEDS: TraZODone HCL 50 MG TABLET PO SCH (20:15)
[2017-12-07] MEDS: BENZTROPINE MESYLATE 1 MG TABLET PO SCH (20:16)
[2017-12-08] MEDS: ZOLPIDEM TARTRATE 10 MG TABLET PO PRN ×2 (00:33→20:58)
[2017-12-08 00:45] VITALS: BP 139/80
[2017-12-08 09:02] VITALS: BP 108/69
[2017-12-08 17:56] VITALS: BP 108/80
[2017-12-08] MEDS: TraZODone HCL 50 MG TABLET PO SCH (20:17)
[2017-12-08] MEDS: BENZTROPINE MESYLATE 1 MG TABLET PO SCH (20:17)
[2017-12-09 05:51] VITALS: BP 110/68
[2017-12-09 08:37] VITALS: BP 127/78
[2017-12-09 17:36] VITALS: BP 121/69
[2017-12-09] MEDS: TraZODone HCL 50 MG TABLET PO SCH (20:15)
[2017-12-09] MEDS: BENZTROPINE MESYLATE 1 MG TABLET PO SCH (20:15)
[2017-12-09] MEDS: ZOLPIDEM TARTRATE 10 MG TABLET PO PRN (22:03)
[2017-12-10 05:39] VITALS: BP 118/72
[2017-12-10 08:28] VITALS: BP 116/65
[2017-12-10 16:20] VITALS: BP 120/81
[2017-12-10] MEDS: TraZODone HCL 50 MG TABLET PO SCH (20:51)
[2017-12-10] MEDS: BENZTROPINE MESYLATE 1 MG TABLET PO SCH (20:51)
[2017-12-10] MEDS: ZOLPIDEM TARTRATE 10 MG TABLET PO PRN (21:02)
[2017-12-11 01:16] VITALS: BP 100/60
[2017-12-11 16:25] VITALS: BP 101/65
[2017-12-11] MEDS: TraZODone HCL 50 MG TABLET PO SCH (20:48)
[2017-12-11] MEDS: BENZTROPINE MESYLATE 1 MG TABLET PO SCH (20:48)
[2017-12-11] MEDS: ZOLPIDEM TARTRATE 10 MG TABLET PO PRN (21:05)
[2017-12-12 06:44] VITALS: BP 105/62
[2017-12-12 09:01] VITALS: BP 119/67
[2017-12-12 16:12] VITALS: BP 115/92
[2017-12-12] MEDS: BENZTROPINE MESYLATE 1 MG TABLET PO SCH (20:35)
[2017-12-12] MEDS: TraZODone HCL 50 MG TABLET PO SCH (20:35)
[2017-12-12] MEDS: ZOLPIDEM TARTRATE 10 MG TABLET PO PRN (21:01)
[2017-12-13 00:05] VITALS: BP 100/61
[2017-12-13 08:17] VITALS: BP 124/65
[2017-12-13 16:00] VITALS: BP 105/68
[2017-12-13] MEDS: BENZTROPINE MESYLATE 1 MG TABLET PO SCH (20:26)
[2017-12-13] MEDS: TraZODone HCL 50 MG TABLET PO SCH (20:26)
[2017-12-13] MEDS: ZOLPIDEM TARTRATE 10 MG TABLET PO PRN (22:00)
[2017-12-14 01:18] VITALS: BP 101/65
[2017-12-14 09:09] VITALS: BP 129/82
[2017-12-14 16:40] VITALS: BP 122/70
[2017-12-14] MEDS: BENZTROPINE MESYLATE 1 MG TABLET PO SCH (20:20)
[2017-12-14] MEDS: TraZODone HCL 50 MG TABLET PO SCH (20:20)
[2017-12-14] MEDS: ZOLPIDEM TARTRATE 10 MG TABLET PO PRN (22:15)
[2017-12-15 01:34] VITALS: BP 132/84
[2017-12-15 08:48] VITALS: BP 117/64
[2017-12-15 16:00] VITALS: BP 120/66
[2017-12-15] MEDS: BENZTROPINE MESYLATE 1 MG TABLET PO SCH (20:46)
[2017-12-15] MEDS: TraZODone HCL 50 MG TABLET PO SCH (20:46)
[2017-12-16] MEDS: ZOLPIDEM TARTRATE 10 MG TABLET PO PRN ×2 (00:17→22:22)
[2017-12-16 01:00] VITALS: BP 123/86
[2017-12-16 08:47] VITALS: BP 117/90
[2017-12-16] MEDS: LORazepam 2 MG TABLET PO PRN ×2 (09:53→20:42)
[2017-12-16 16:00] VITALS: BP 125/83
[2017-12-16] MEDS: BENZTROPINE MESYLATE 1 MG TABLET PO SCH (20:21)
[2017-12-16] MEDS: TraZODone HCL 50 MG TABLET PO SCH (20:21)
[2017-12-17 06:44] VITALS: BP 106/78
[2017-12-17 10:25] VITALS: BP 117/60
[2017-12-17 16:28] VITALS: BP 129/82
[2017-12-17] MEDS: TraZODone HCL 50 MG TABLET PO SCH (20:55)
[2017-12-17] MEDS: BENZTROPINE MESYLATE 1 MG TABLET PO SCH (20:55)
[2017-12-17] MEDS: ZOLPIDEM TARTRATE 10 MG TABLET PO PRN (22:03)
[2017-12-18 06:51] VITALS: BP 108/62
[2017-12-18 09:42] VITALS: BP 119/74
[2017-12-18 16:16] VITALS: BP 124/86
[2017-12-18] MEDS: LORazepam 2 MG TABLET PO PRN (16:21)
[2017-12-18] MEDS: IBUPROFEN 600 MG TABLET PO PRN (16:22)
[2017-12-18] MEDS: TraZODone HCL 50 MG TABLET PO SCH (21:16)
[2017-12-18] MEDS: BENZTROPINE MESYLATE 1 MG TABLET PO SCH (21:16)
[2017-12-19 06:04] VITALS: BP 115/61
[2017-12-19 08:26] VITALS: BP 120/70
[2017-12-19 17:10] VITALS: BP 120/75
[2017-12-19] MEDS: LORazepam 2 MG TABLET PO PRN (20:54)
[2017-12-19] MEDS: TraZODone HCL 50 MG TABLET PO SCH (20:54)
[2017-12-19] MEDS: BENZTROPINE MESYLATE 1 MG TABLET PO SCH (20:54)
[2017-12-19] MEDS: ZOLPIDEM TARTRATE 10 MG TABLET PO PRN (23:45)
[2017-12-20 06:42] VITALS: BP 110/64
[2017-12-20 08:34] VITALS: BP 120/59
[2017-12-20 16:00] VITALS: BP 120/73
[2017-12-20] MEDS: BENZTROPINE MESYLATE 1 MG TABLET PO SCH (20:07)
[2017-12-20] MEDS: TraZODone HCL 50 MG TABLET PO SCH (20:08)
[2017-12-21 05:59] VITALS: BP 118/75
[2017-12-21 09:59] VITALS: BP 100/62
[2017-12-21 16:11] VITALS: BP 116/71
[2017-12-21] MEDS: TraZODone HCL 50 MG TABLET PO SCH (21:11)
[2017-12-21] MEDS: BENZTROPINE MESYLATE 1 MG TABLET PO SCH (21:11)
[2017-12-22 06:25] VITALS: BP 104/68
[2017-12-22 08:14] LABS: HEMATOCRIT 44.7 % (41-53); HEMOGLOBIN 15.7 g/dL (13.5-17.5); MEAN CORPUSCULAR HEMOGLOBIN 30.2 pg (26.0-34.0); MEAN CORPUSCULAR HGB CONC 35.2 G/dL (31.0-37.0); MEAN CORPUSCULAR VOLUME 86 fL (80-100); PLATELET COUNT (AUTO) 197 K/uL (150-450); RED BLOOD CELL COUNT(AUTO) 5.21 MIL/uL (4.50-5.90)
[2017-12-22 08:18] VITALS: BP 110/68
[2017-12-22 08:41] LABS: ANION GAP 9 mmol/L (8-16); CALCIUM, TOTAL 9.2 mg/dL (8.8-10.5); CARBON DIOXIDE 29 mmol/L (22-29); CHLORIDE 103 mmol/L (98-107); CHOL/HDL RATIO 2.9 (4.2-7.3); CHOLESTEROL 111 mg/dL (131-200); CREATININE 0.76 mg/dL (0.60-1.30); GLOMERULAR FILTR. RATE CALC > 60 mL/min (>60); GLUCOSE,RANDOM 82 mg/dL (70-110); HDL CHOLESTEROL 38 mg/dL (40-60); LDL CHOL (CALC.) 58 mg/dL (0-130); PHOSPHORUS 4.5 mg/dL (2.5-4.9); POTASSIUM 3.6 mmol/L (3.5-5.1); SODIUM SERUM 141 mmol/L (136-145); TRIGLYCERIDES 77 mg/dL (15-150); UREA NITROGEN, BLOOD 12 mg/dL (7-18)
[2017-12-22 10:43] LABS: BAND NEUTROPHILS % (MANUAL) 1 % (1-5); EOSINOPHILS % (MANUAL) 10 % (1-6); LYMPHOCYTES % (MANUAL) 30 % (22-44); MONOCYTES % (MANUAL) 7 % (2-9); SEGMENTED NEUTROPHILS % 52 % (40-70)
[2017-12-22 16:36] VITALS: BP 118/74
[2017-12-22] MEDS: TraZODone HCL 50 MG TABLET PO SCH (20:37)
[2017-12-22] MEDS: BENZTROPINE MESYLATE 1 MG TABLET PO SCH (20:37)
[2017-12-22 23:45] VITALS: BP 116/76
[2017-12-23 00:11] VITALS: BP 122/81
[2017-12-23] MEDS: IBUPROFEN 600 MG TABLET PO PRN (01:00)
[2017-12-23 08:13] VITALS: BP 123/70
[2017-12-23] MEDS: PALIPERIDONE PALMITATE 234 MG/1.5 ML SYRINGE IM SCH (12:15)
[2017-12-23 16:00] VITALS: BP 113/60
[2017-12-23] MEDS: BENZTROPINE MESYLATE 1 MG TABLET PO SCH (20:11)
[2017-12-23] MEDS: TraZODone HCL 50 MG TABLET PO SCH (20:11)
[2017-12-24 07:07] VITALS: BP 121/68
[2017-12-24 08:18] VITALS: BP 111/66
[2017-12-24] MEDS: CHOLECALCIFEROL (VIT D3) 1,000 UNITS TABLET PO SCH (08:40)
[2017-12-24 16:19] VITALS: BP 116/68
[2017-12-24] MEDS: TraZODone HCL 50 MG TABLET PO SCH (20:13)
[2017-12-24] MEDS: BENZTROPINE MESYLATE 1 MG TABLET PO SCH (20:13)
[2017-12-25 05:35] VITALS: BP 119/73
[2017-12-25 08:59] VITALS: BP 103/60
[2017-12-25] MEDS: CHOLECALCIFEROL (VIT D3) 1,000 UNITS TABLET PO SCH (09:04)
[2017-12-25 16:07] VITALS: BP 125/82
[2017-12-25] MEDS: TraZODone HCL 50 MG TABLET PO SCH (20:06)
[2017-12-25] MEDS: BENZTROPINE MESYLATE 1 MG TABLET PO SCH (20:06)
[2017-12-25] MEDS: ZOLPIDEM TARTRATE 10 MG TABLET PO PRN (22:48)
[2017-12-26 06:52] VITALS: BP 116/72
[2017-12-26 08:30] VITALS: BP 118/60
[2017-12-26] MEDS: CHOLECALCIFEROL (VIT D3) 1,000 UNITS TABLET PO SCH (08:42)
[2017-12-26 16:12] VITALS: BP 114/67
[2017-12-26] MEDS: BENZTROPINE MESYLATE 1 MG TABLET PO SCH (20:14)
[2017-12-26] MEDS: TraZODone HCL 50 MG TABLET PO SCH (20:14)
[2017-12-27] VITALS: BP 122/67
[2017-12-27] MEDS: ZOLPIDEM TARTRATE 10 MG TABLET PO PRN (00:04)
[2017-12-27] MEDS: IBUPROFEN 600 MG TABLET PO PRN (00:04)
[2017-12-27] MEDS: CHOLECALCIFEROL (VIT D3) 1,000 UNITS TABLET PO SCH (08:28)
[2017-12-27 08:46] VITALS: BP 114/62
[2017-12-27 16:15] VITALS: BP 115/63
[2017-12-27] MEDS: BENZTROPINE MESYLATE 1 MG TABLET PO SCH (20:07)
[2017-12-27] MEDS: TraZODone HCL 50 MG TABLET PO SCH (20:08)
[2017-12-28 05:02] VITALS: BP 121/88
[2017-12-28] MEDS: CHOLECALCIFEROL (VIT D3) 1,000 UNITS TABLET PO SCH (08:25)
[2017-12-28 08:34] VITALS: BP 126/76
[2017-12-28 16:05] VITALS: BP 121/77
[2017-12-28 18:58] VITALS: BP 122/69
[2017-12-28] MEDS: BENZTROPINE MESYLATE 1 MG TABLET PO SCH (20:27)
[2017-12-28] MEDS: TraZODone HCL 50 MG TABLET PO SCH (20:27)
[2017-12-29 02:30] VITALS: BP 117/62
[2017-12-29 08:31] VITALS: BP 101/69
[2017-12-29] MEDS: CHOLECALCIFEROL (VIT D3) 1,000 UNITS TABLET PO SCH (09:00)
[2017-12-29 12:32] VITALS: BP 136/77
[2017-12-29] MEDS: IBUPROFEN 600 MG TABLET PO PRN (12:33)
[2017-12-29 13:34] VITALS: BP 112/67
[2017-12-29 16:00] VITALS: BP 123/66
[2017-12-29] MEDS: BENZTROPINE MESYLATE 1 MG TABLET PO SCH (20:18)
[2017-12-29] MEDS: TraZODone HCL 50 MG TABLET PO SCH (20:18)
[2017-12-29] MEDS: ZOLPIDEM TARTRATE 10 MG TABLET PO PRN (22:28)
[2017-12-30 06:01] VITALS: BP 120/86
[2017-12-30 08:00] VITALS: BP 123/76
[2017-12-30] MEDS: CHOLECALCIFEROL (VIT D3) 1,000 UNITS TABLET PO SCH (09:44)
[2017-12-30 16:38] VITALS: BP 123/70
[2017-12-30] MEDS: BENZTROPINE MESYLATE 1 MG TABLET PO SCH (20:31)
[2017-12-30] MEDS: TraZODone HCL 50 MG TABLET PO SCH (20:31)
[2017-12-30] MEDS: ZOLPIDEM TARTRATE 10 MG TABLET PO PRN (21:48)
[2017-12-31 06:55] VITALS: BP 125/62
[2017-12-31 08:40] VITALS: BP 113/61
[2017-12-31] MEDS: CHOLECALCIFEROL (VIT D3) 1,000 UNITS TABLET PO SCH (09:45)
[2017-12-31 16:11] VITALS: BP 109/61
[2017-12-31] MEDS: TraZODone HCL 50 MG TABLET PO SCH (20:34)
[2017-12-31] MEDS: BENZTROPINE MESYLATE 1 MG TABLET PO SCH (20:34)
[2017-12-31] MEDS: ZOLPIDEM TARTRATE 10 MG TABLET PO PRN (22:56)
[2018-01-01 06:34] VITALS: BP 117/67
[2018-01-01 08:21] VITALS: BP 115/60
[2018-01-01] MEDS: CHOLECALCIFEROL (VIT D3) 1,000 UNITS TABLET PO SCH (09:27)
[2018-01-01 16:10] VITALS: BP 112/68
[2018-01-01] MEDS: TraZODone HCL 50 MG TABLET PO SCH (20:24)
[2018-01-01] MEDS: BENZTROPINE MESYLATE 1 MG TABLET PO SCH (20:24)
[2018-01-02 07:05] VITALS: BP 106/63
[2018-01-02 08:35] VITALS: BP 114/64
[2018-01-02] MEDS: CHOLECALCIFEROL (VIT D3) 1,000 UNITS TABLET PO SCH (09:06)
[2018-01-02 16:24] VITALS: BP 121/70
[2018-01-02] MEDS: TraZODone HCL 50 MG TABLET PO SCH (20:13)
[2018-01-02] MEDS: BENZTROPINE MESYLATE 1 MG TABLET PO SCH (20:13)
[2018-01-02] MEDS: IBUPROFEN 600 MG TABLET PO PRN (22:47)
[2018-01-02] MEDS: ZOLPIDEM TARTRATE 10 MG TABLET PO PRN (22:47)
[2018-01-03 06:35] VITALS: BP 114/61
[2018-01-03 08:48] VITALS: BP 110/62
[2018-01-03] MEDS: CHOLECALCIFEROL (VIT D3) 1,000 UNITS TABLET PO SCH (08:49)
[2018-01-03 16:33] VITALS: BP 121/81
[2018-01-03] MEDS: TraZODone HCL 50 MG TABLET PO SCH (20:18)
[2018-01-03] MEDS: BENZTROPINE MESYLATE 1 MG TABLET PO SCH (20:18)
[2018-01-04 00:01] VITALS: BP 115/63
[2018-01-04] MEDS: ZOLPIDEM TARTRATE 10 MG TABLET PO PRN (00:08)
[2018-01-04 08:31] VITALS: BP 100/76
[2018-01-04] MEDS: CHOLECALCIFEROL (VIT D3) 1,000 UNITS TABLET PO SCH (09:26)
[2018-01-04 16:15] VITALS: BP 110/68
[2018-01-04] MEDS: BENZTROPINE MESYLATE 1 MG TABLET PO SCH (20:05)
[2018-01-04] MEDS: TraZODone HCL 50 MG TABLET PO SCH (20:05)
[2018-01-05 02:35] VITALS: BP 123/87
[2018-01-05] MEDS: ZOLPIDEM TARTRATE 10 MG TABLET PO PRN ×2 (02:37→21:55)
[2018-01-05 08:12] VITALS: BP 110/62
[2018-01-05] MEDS: CHOLECALCIFEROL (VIT D3) 1,000 UNITS TABLET PO SCH (08:47)
[2018-01-05 16:25] VITALS: BP 116/68
[2018-01-05] MEDS: HALOPERIDOL 5 MG TABLET PO PRN (17:34)
[2018-01-05] MEDS: LORazepam 2 MG TABLET PO PRN (17:34)
[2018-01-05] MEDS: BENZTROPINE MESYLATE 1 MG TABLET PO SCH (20:45)
[2018-01-05] MEDS: TraZODone HCL 50 MG TABLET PO SCH (20:45)
[2018-01-06 06:34] VITALS: BP 113/65
[2018-01-06 08:54] VITALS: BP 118/70
[2018-01-06] MEDS: CHOLECALCIFEROL (VIT D3) 1,000 UNITS TABLET PO SCH (09:15)
[2018-01-06 16:00] VITALS: BP 112/69
[2018-01-06] MEDS: BENZTROPINE MESYLATE 1 MG TABLET PO SCH (20:04)
[2018-01-06] MEDS: TraZODone HCL 50 MG TABLET PO SCH (20:04)
[2018-01-06] MEDS: ZOLPIDEM TARTRATE 10 MG TABLET PO PRN (21:10)
[2018-01-07 06:25] VITALS: BP 118/60
[2018-01-07 08:44] VITALS: BP 113/60
[2018-01-07] MEDS: CHOLECALCIFEROL (VIT D3) 1,000 UNITS TABLET PO SCH (09:31)
[2018-01-07 16:38] VITALS: BP 126/82
[2018-01-07] MEDS: TraZODone HCL 50 MG TABLET PO SCH (20:04)
[2018-01-07] MEDS: BENZTROPINE MESYLATE 1 MG TABLET PO SCH (20:04)
[2018-01-08 00:30] VITALS: BP 110/63
[2018-01-08] MEDS: ZOLPIDEM TARTRATE 10 MG TABLET PO PRN (00:58)
[2018-01-08 08:41] VITALS: BP 103/60
[2018-01-08] MEDS: CHOLECALCIFEROL (VIT D3) 1,000 UNITS TABLET PO SCH (08:46)
[2018-01-08 16:09] VITALS: BP 119/69
[2018-01-08] MEDS: LORazepam 2 MG TABLET PO PRN (19:47)
[2018-01-08] MEDS: HALOPERIDOL 5 MG TABLET PO PRN (19:47)
[2018-01-08] MEDS: BENZTROPINE MESYLATE 1 MG TABLET PO SCH (20:05)
[2018-01-08] MEDS: TraZODone HCL 50 MG TABLET PO SCH (20:05)
[2018-01-09 06:05] VITALS: BP 112/64
[2018-01-09 08:13] VITALS: BP 118/69
[2018-01-09] MEDS: CHOLECALCIFEROL (VIT D3) 1,000 UNITS TABLET PO SCH (08:33)
[2018-01-09 16:35] VITALS: BP 122/65
[2018-01-09] MEDS: BENZTROPINE MESYLATE 1 MG TABLET PO SCH (20:00)
[2018-01-09] MEDS: TraZODone HCL 50 MG TABLET PO SCH (20:00)
[2018-01-09] MEDS: ZOLPIDEM TARTRATE 10 MG TABLET PO PRN (21:11)
[2018-01-10 06:28] VITALS: BP 120/66
[2018-01-10 08:39] VITALS: BP 110/69
[2018-01-10] MEDS: CHOLECALCIFEROL (VIT D3) 1,000 UNITS TABLET PO SCH (08:47)
[2018-01-10 16:26] VITALS: BP 104/60
[2018-01-10] MEDS: BENZTROPINE MESYLATE 1 MG TABLET PO SCH (20:13)
[2018-01-10] MEDS: TraZODone HCL 50 MG TABLET PO SCH (20:13)
[2018-01-10] MEDS: ZOLPIDEM TARTRATE 10 MG TABLET PO PRN (21:02)
[2018-01-11 01:08] VITALS: BP 113/86
[2018-01-11 08:18] VITALS: BP 122/69
[2018-01-11] MEDS: CHOLECALCIFEROL (VIT D3) 1,000 UNITS TABLET PO SCH (09:34)
[2018-01-11 16:41] VITALS: BP 130/84
[2018-01-11] MEDS: BENZTROPINE MESYLATE 1 MG TABLET PO SCH (20:15)
[2018-01-11] MEDS: TraZODone HCL 50 MG TABLET PO SCH (20:15)
[2018-01-11] MEDS: ZOLPIDEM TARTRATE 10 MG TABLET PO PRN (21:43)
[2018-01-12 06:40] VITALS: BP 121/68
[2018-01-12 08:08] VITALS: BP 117/73
[2018-01-12] MEDS: CHOLECALCIFEROL (VIT D3) 1,000 UNITS TABLET PO SCH (09:37)
[2018-01-12 16:22] VITALS: BP 108/62
[2018-01-12] MEDS: BENZTROPINE MESYLATE 1 MG TABLET PO SCH (20:57)
[2018-01-12] MEDS: TraZODone HCL 50 MG TABLET PO SCH (20:57)
[2018-01-12] MEDS: ZOLPIDEM TARTRATE 10 MG TABLET PO PRN (22:05)
[2018-01-13 01:47] VITALS: BP 119/77
[2018-01-13] MEDS: CHOLECALCIFEROL (VIT D3) 1,000 UNITS TABLET PO SCH (08:36)
[2018-01-13 08:45] VITALS: BP 116/72
[2018-01-13 17:47] VITALS: BP 114/67
[2018-01-13] MEDS: BENZTROPINE MESYLATE 1 MG TABLET PO SCH (21:03)
[2018-01-13] MEDS: TraZODone HCL 50 MG TABLET PO SCH (21:03)
[2018-01-13] MEDS: ZOLPIDEM TARTRATE 10 MG TABLET PO PRN (21:10)
[2018-01-13] MEDS: IBUPROFEN 600 MG TABLET PO PRN (22:39)
[2018-01-14 05:38] VITALS: BP 107/60
[2018-01-14 08:20] VITALS: BP 101/57
[2018-01-14] MEDS: CHOLECALCIFEROL (VIT D3) 1,000 UNITS TABLET PO SCH (10:22)
[2018-01-14 16:11] VITALS: BP 124/82
[2018-01-14] MEDS: BENZTROPINE MESYLATE 1 MG TABLET PO SCH (20:16)
[2018-01-14] MEDS: TraZODone HCL 50 MG TABLET PO SCH (20:16)
[2018-01-14] MEDS: ZOLPIDEM TARTRATE 10 MG TABLET PO PRN (21:56)
[2018-01-15 08:30] VITALS: BP 117/70
[2018-01-15] MEDS: CHOLECALCIFEROL (VIT D3) 1,000 UNITS TABLET PO SCH (08:42)
[2018-01-15 16:12] VITALS: BP 125/85
[2018-01-15] MEDS ORDERED: LORazepam 2 MG/ML VIAL ONE (17:40)
[2018-01-15] MEDS ORDERED: HALOPERIDOL LACTATE 5 MG/ML VIAL ONE (17:41)
[2018-01-15] MEDS ORDERED: LORazepam 2 MG/ML VIAL IM ONE (17:45)
[2018-01-15] MEDS ORDERED: DiphenhydrAMINE HCL 50 MG/ML VIAL IM ONE (17:45)
[2018-01-15] MEDS ORDERED: HALOPERIDOL LACTATE 5 MG/ML VIAL IM ONE (17:45)
[2018-01-15 19:00] VITALS: BP 117/78
[2018-01-15] MEDS: TraZODone HCL 50 MG TABLET PO SCH (20:30)
[2018-01-15] MEDS: BENZTROPINE MESYLATE 1 MG TABLET PO SCH (20:30)
[2018-01-16 06:00] VITALS: BP 107/69
[2018-01-16 09:07] VITALS: BP 107/58
[2018-01-16] MEDS: CHOLECALCIFEROL (VIT D3) 1,000 UNITS TABLET PO SCH (09:40)
[2018-01-16] MEDS ORDERED: DiphenhydrAMINE HCL 50 MG/ML VIAL ONE (10:09)
[2018-01-16] MEDS ORDERED: HALOPERIDOL LACTATE 5 MG/ML VIAL ONE (10:09)
[2018-01-16] MEDS ORDERED: DiphenhydrAMINE HCL 50 MG/ML VIAL IM ONE (10:15)
[2018-01-16] MEDS ORDERED: HALOPERIDOL LACTATE 5 MG/ML VIAL IM ONE (10:15)
[2018-01-16] MEDS ORDERED: LORazepam 2 MG/ML VIAL IM ONE (10:15)
[2018-01-16 16:00] VITALS: BP 114/64
[2018-01-16] MEDS: TraZODone HCL 50 MG TABLET PO SCH (21:07)
[2018-01-16] MEDS: BENZTROPINE MESYLATE 1 MG TABLET PO SCH (21:07)
[2018-01-17 05:53] VITALS: BP 112/68
[2018-01-17 08:35] VITALS: BP 118/69
[2018-01-17] MEDS: CHOLECALCIFEROL (VIT D3) 1,000 UNITS TABLET PO SCH (08:39)
[2018-01-17 16:20] VITALS: BP 119/73
[2018-01-17] MEDS: HALOPERIDOL 5 MG TABLET PO PRN (18:26)
[2018-01-17] MEDS: LORazepam 2 MG TABLET PO PRN (18:27)
[2018-01-17] MEDS: TraZODone HCL 50 MG TABLET PO SCH (20:15)
[2018-01-17] MEDS: BENZTROPINE MESYLATE 1 MG TABLET PO SCH (20:15)
[2018-01-18 05:50] VITALS: BP 104/68
[2018-01-18 08:34] VITALS: BP 108/57
[2018-01-18] MEDS: CHOLECALCIFEROL (VIT D3) 1,000 UNITS TABLET PO SCH (08:55)
[2018-01-18 16:34] VITALS: BP 126/82
[2018-01-18] MEDS: BENZTROPINE MESYLATE 1 MG TABLET PO SCH (20:30)
[2018-01-18] MEDS: TraZODone HCL 50 MG TABLET PO SCH (20:30)
[2018-01-18] MEDS: ZOLPIDEM TARTRATE 10 MG TABLET PO PRN (21:59)
[2018-01-19 05:32] VITALS: BP 120/86
[2018-01-19 08:28] VITALS: BP 98/56
[2018-01-19] MEDS: CHOLECALCIFEROL (VIT D3) 1,000 UNITS TABLET PO SCH (08:35)
[2018-01-19 16:17] VITALS: BP 115/75
[2018-01-19] MEDS: BENZTROPINE MESYLATE 1 MG TABLET PO SCH (20:16)
[2018-01-19] MEDS: TraZODone HCL 50 MG TABLET PO SCH (20:16)
[2018-01-19] MEDS: ZOLPIDEM TARTRATE 10 MG TABLET PO PRN (22:20)
[2018-01-19 22:25] VITALS: BP 124/74
[2018-01-19] MEDS: IBUPROFEN 600 MG TABLET PO PRN (22:27)
[2018-01-20] MEDS: HALOPERIDOL 5 MG TABLET PO PRN (00:05)
[2018-01-20] MEDS: LORazepam 2 MG TABLET PO PRN (00:05)
[2018-01-20 01:31] VITALS: BP 124/76
[2018-01-20 08:35] VITALS: BP 112/70
[2018-01-20] MEDS: CHOLECALCIFEROL (VIT D3) 1,000 UNITS TABLET PO SCH (09:02)
[2018-01-20] MEDS: PALIPERIDONE PALMITATE 234 MG/1.5 ML SYRINGE IM SCH (09:03)
[2018-01-20 16:38] VITALS: BP 116/65
[2018-01-20] MEDS: BENZTROPINE MESYLATE 1 MG TABLET PO SCH (20:30)
[2018-01-20] MEDS: TraZODone HCL 50 MG TABLET PO SCH (20:30)
[2018-01-20] MEDS: ZOLPIDEM TARTRATE 10 MG TABLET PO PRN (21:12)
[2018-01-21 06:39] VITALS: BP 118/65
[2018-01-21 08:27] VITALS: BP 107/60
[2018-01-21] MEDS: CHOLECALCIFEROL (VIT D3) 1,000 UNITS TABLET PO SCH (08:44)
[2018-01-21 16:11] VITALS: BP 126/87
[2018-01-21] MEDS: TraZODone HCL 50 MG TABLET PO SCH (20:04)
[2018-01-21] MEDS: BENZTROPINE MESYLATE 1 MG TABLET PO SCH (20:04)
[2018-01-21] MEDS: LORazepam 2 MG TABLET PO PRN (20:25)
[2018-01-21] MEDS: HALOPERIDOL 5 MG TABLET PO PRN (20:26)
[2018-01-21] MEDS: ZOLPIDEM TARTRATE 10 MG TABLET PO PRN (21:34)
[2018-01-22 04:41] VITALS: BP 122/76
[2018-01-22] MEDS: HALOPERIDOL 5 MG TABLET PO PRN ×2 (04:43→21:13)
[2018-01-22] MEDS: LORazepam 2 MG TABLET PO PRN ×2 (04:43→21:12)
[2018-01-22 08:31] LABS: HEMATOCRIT 44.8 % (41-53); HEMOGLOBIN 15.7 g/dL (13.5-17.5); MEAN CORPUSCULAR HEMOGLOBIN 29.8 pg (26.0-34.0); MEAN CORPUSCULAR VOLUME 85 fL (80-100); PLATELET COUNT (AUTO) 198 K/uL (150-450); RED BLOOD CELL COUNT(AUTO) 5.26 MIL/uL (4.50-5.90); RED CELL DISTRIBUTION WIDTH 12.9 % (11.5-14.5)
[2018-01-22] MEDS: CHOLECALCIFEROL (VIT D3) 1,000 UNITS TABLET PO SCH (08:48)
[2018-01-22 08:58] VITALS: BP 131/87
[2018-01-22 09:00] LABS: ANION GAP 9 mmol/L (8-16); CALCIUM, TOTAL 9.4 mg/dL (8.8-10.5); CARBON DIOXIDE 29 mmol/L (22-29); CHLORIDE 102 mmol/L (98-107); CHOL/HDL RATIO 2.9 (4.2-7.3); CHOLESTEROL 119 mg/dL (131-200); CREATININE 0.87 mg/dL (0.60-1.30); GLOMERULAR FILTR. RATE CALC > 60 mL/min (>60); GLUCOSE,RANDOM 79 mg/dL (70-110); HDL CHOLESTEROL 41 mg/dL (40-60); LDL CHOL (CALC.) 68 mg/dL (0-130); PHOSPHORUS 3.7 mg/dL (2.5-4.9); POTASSIUM 3.3 mmol/L (3.5-5.1); SODIUM SERUM 140 mmol/L (136-145); THYROID STIMULATING HORMONE 3.67 uIU/mL (0.36-3.74); TRIGLYCERIDES 50 mg/dL (15-150); UREA NITROGEN, BLOOD 10 mg/dL (7-18)
[2018-01-22] MEDS ORDERED: TUBERCULIN, PURIFIED PROTEIN DERIVATIVE 5 TU/0.1 ML SYG ID ONE (09:00)
[2018-01-22 09:04] LABS: BAND NEUTROPHILS % (MANUAL) 1 % (1-5); EOSINOPHILS % (MANUAL) 4 % (1-6); LYMPHOCYTES % (MANUAL) 35 % (22-44); MONOCYTES % (MANUAL) 5 % (2-9); SEGMENTED NEUTROPHILS % 55 % (40-70)
[2018-01-22] MEDS ORDERED: POTASSIUM CHLORIDE 20 MEQ ER TABLET PO ONE (13:00)
[2018-01-22 16:15] VITALS: BP 111/59
[2018-01-22] MEDS: TraZODone HCL 50 MG TABLET PO SCH (20:29)
[2018-01-22] MEDS: BENZTROPINE MESYLATE 1 MG TABLET PO SCH (20:29)
[2018-01-22] MEDS: ZOLPIDEM TARTRATE 10 MG TABLET PO PRN (20:33)
[2018-01-23 06:53] VITALS: BP 115/68
[2018-01-23 08:17] VITALS: BP 102/57
[2018-01-23] MEDS: CHOLECALCIFEROL (VIT D3) 1,000 UNITS TABLET PO SCH (08:35)
[2018-01-23 16:43] VITALS: BP 111/69
[2018-01-23] MEDS: TraZODone HCL 50 MG TABLET PO SCH (20:27)
[2018-01-23] MEDS: BENZTROPINE MESYLATE 1 MG TABLET PO SCH (20:27)
[2018-01-23] MEDS: LORazepam 2 MG TABLET PO PRN (20:34)
[2018-01-23] MEDS: HALOPERIDOL 5 MG TABLET PO PRN (20:34)
[2018-01-23] MEDS: ZOLPIDEM TARTRATE 10 MG TABLET PO PRN (21:42)
[2018-01-24 06:09] VITALS: BP 105/61
[2018-01-24 08:27] VITALS: BP 111/70
[2018-01-24] MEDS: CHOLECALCIFEROL (VIT D3) 1,000 UNITS TABLET PO SCH (08:33)
[2018-01-24 16:44] VITALS: BP 113/72
[2018-01-24] MEDS: TraZODone HCL 50 MG TABLET PO SCH (20:29)
[2018-01-24] MEDS: BENZTROPINE MESYLATE 1 MG TABLET PO SCH (20:29)
[2018-01-24] MEDS: ZOLPIDEM TARTRATE 10 MG TABLET PO PRN (20:37)
[2018-01-25 02:56] VITALS: BP 122/78
[2018-01-25] MEDS: HALOPERIDOL 5 MG TABLET PO PRN ×2 (03:04→20:49)
[2018-01-25] MEDS: LORazepam 2 MG TABLET PO PRN ×2 (03:04→20:49)
[2018-01-25 08:11] VITALS: BP 114/63
[2018-01-25] MEDS: CHOLECALCIFEROL (VIT D3) 1,000 UNITS TABLET PO SCH (08:17)
[2018-01-25 18:24] VITALS: BP 100/62
[2018-01-25] MEDS: BENZTROPINE MESYLATE 1 MG TABLET PO SCH (20:49)
[2018-01-25] MEDS: TraZODone HCL 50 MG TABLET PO SCH (20:49)
[2018-01-25] MEDS: ZOLPIDEM TARTRATE 10 MG TABLET PO PRN (22:09)
[2018-01-26 06:18] VITALS: BP 100/63
[2018-01-26 08:23] VITALS: BP 118/76
[2018-01-26] MEDS: CHOLECALCIFEROL (VIT D3) 1,000 UNITS TABLET PO SCH (08:47)
[2018-01-26] MEDS: HALOPERIDOL 5 MG TABLET PO PRN (16:00)
[2018-01-26] MEDS: LORazepam 2 MG TABLET PO PRN (16:00)
[2018-01-26 16:09] VITALS: BP 125/77
[2018-01-26] MEDS: BENZTROPINE MESYLATE 1 MG TABLET PO SCH (20:40)
[2018-01-26] MEDS: TraZODone HCL 50 MG TABLET PO SCH (20:41)
[2018-01-26] MEDS: ZOLPIDEM TARTRATE 10 MG TABLET PO PRN (20:53)
[2018-01-27] MEDS: LORazepam 2 MG TABLET PO PRN ×2 (01:32→02:12)
[2018-01-27] MEDS: HALOPERIDOL 5 MG TABLET PO PRN ×3 (01:32→21:19)
[2018-01-27 01:42] VITALS: BP 121/86
[2018-01-27 08:30] VITALS: BP 112/74
[2018-01-27 08:31] LABS: HEMOGLOBIN 15.6 g/dL (13.5-17.5); MEAN CORPUSCULAR HEMOGLOBIN 29.8 pg (26.0-34.0); MEAN CORPUSCULAR HGB CONC 34.8 G/dL (31.0-37.0); MEAN CORPUSCULAR VOLUME 86 fL (80-100); PLATELET COUNT (AUTO) 220 K/uL (150-450); RED BLOOD CELL COUNT(AUTO) 5.24 MIL/uL (4.50-5.90); RED CELL DISTRIBUTION WIDTH 12.8 % (11.5-14.5)
[2018-01-27] MEDS: CHOLECALCIFEROL (VIT D3) 1,000 UNITS TABLET PO SCH (08:41)
[2018-01-27 08:59] LABS: ANION GAP 11 mmol/L (8-16); CALCIUM, TOTAL 9.3 mg/dL (8.8-10.5); CARBON DIOXIDE 28 mmol/L (22-29); CHLORIDE 103 mmol/L (98-107); CREATININE 0.84 mg/dL (0.60-1.30); GLOMERULAR FILTR. RATE CALC > 60 mL/min (>60); GLUCOSE,RANDOM 79 mg/dL (70-110); PHOSPHORUS 4.7 mg/dL (2.5-4.9); POTASSIUM 3.8 mmol/L (3.5-5.1); SODIUM SERUM 142 mmol/L (136-145); UREA NITROGEN, BLOOD 10 mg/dL (7-18)
[2018-01-27 09:13] LABS: BASOPHILS % (MANUAL) 1 % (0-2); EOSINOPHILS % (MANUAL) 7 % (1-6); LYMPHOCYTES % (MANUAL) 33 % (22-44); MONOCYTES % (MANUAL) 6 % (2-9); SEGMENTED NEUTROPHILS % 53 % (40-70)
[2018-01-27 16:36] VITALS: BP 119/75
[2018-01-27] MEDS: TraZODone HCL 50 MG TABLET PO SCH (20:41)
[2018-01-27] MEDS: BENZTROPINE MESYLATE 1 MG TABLET PO SCH (20:41)
[2018-01-27] MEDS: ZOLPIDEM TARTRATE 10 MG TABLET PO PRN (22:03)
[2018-01-28 06:36] VITALS: BP 112/62
[2018-01-28 08:28] VITALS: BP 110/69
[2018-01-28] MEDS: CHOLECALCIFEROL (VIT D3) 1,000 UNITS TABLET PO SCH (09:04)
[2018-01-28 16:05] VITALS: BP 113/65
[2018-01-28] MEDS: BENZTROPINE MESYLATE 1 MG TABLET PO SCH (20:26)
[2018-01-28] MEDS: TraZODone HCL 50 MG TABLET PO SCH (20:26)
[2018-01-28] MEDS: ZOLPIDEM TARTRATE 10 MG TABLET PO PRN (21:19)
[2018-01-29] MEDS: LORazepam 2 MG TABLET PO PRN (01:57)
[2018-01-29] MEDS: HALOPERIDOL 5 MG TABLET PO PRN (01:57)
[2018-01-29 06:47] VITALS: BP 106/65
[2018-01-29] MEDS: CHOLECALCIFEROL (VIT D3) 1,000 UNITS TABLET PO SCH (08:38)
[2018-01-29 08:44] VITALS: BP 121/75
[2018-01-29 16:08] VITALS: BP 109/69
[2018-01-29] MEDS: TraZODone HCL 50 MG TABLET PO SCH (20:14)
[2018-01-29] MEDS: BENZTROPINE MESYLATE 1 MG TABLET PO SCH (20:14)
[2018-01-29] MEDS: ZOLPIDEM TARTRATE 10 MG TABLET PO PRN (22:35)
[2018-01-30 04:30] VITALS: BP 118/79
[2018-01-30] MEDS: HALOPERIDOL 5 MG TABLET PO PRN (05:06)
[2018-01-30] MEDS: LORazepam 2 MG TABLET PO PRN (05:06)
[2018-01-30] MEDS: CHOLECALCIFEROL (VIT D3) 1,000 UNITS TABLET PO SCH (08:43)
[2018-01-30 08:45] VITALS: BP 115/64
[2018-01-30 16:06] VITALS: BP 128/80
[2018-01-30] MEDS: TraZODone HCL 50 MG TABLET PO SCH (20:35)
[2018-01-30] MEDS: BENZTROPINE MESYLATE 1 MG TABLET PO SCH (20:35)
[2018-01-30] MEDS: ZOLPIDEM TARTRATE 10 MG TABLET PO PRN (21:57)
[2018-01-31] VITALS: BP 102/60
[2018-01-31 08:28] VITALS: BP 112/66
[2018-01-31] MEDS: CHOLECALCIFEROL (VIT D3) 1,000 UNITS TABLET PO SCH (08:36)
[2018-01-31 16:14] VITALS: BP 117/66
[2018-01-31] MEDS: HALOPERIDOL 5 MG TABLET PO PRN (16:54)
[2018-01-31] MEDS: LORazepam 2 MG TABLET PO PRN (16:54)
[2018-01-31] MEDS: TraZODone HCL 50 MG TABLET PO SCH (20:31)
[2018-01-31] MEDS: BENZTROPINE MESYLATE 1 MG TABLET PO SCH (20:31)
[2018-01-31] MEDS: ZOLPIDEM TARTRATE 10 MG TABLET PO PRN (20:44)
[2018-02-01 05:45] VITALS: BP 101/63
[2018-02-01 08:54] VITALS: BP 112/69
[2018-02-01] MEDS: CHOLECALCIFEROL (VIT D3) 1,000 UNITS TABLET PO SCH (09:11)
[2018-02-01] MEDS: LORazepam 2 MG TABLET PO PRN (16:06)
[2018-02-01] MEDS: HALOPERIDOL 5 MG TABLET PO PRN (16:07)
[2018-02-01 16:15] VITALS: BP 118/7
[2018-02-01] MEDS: TraZODone HCL 50 MG TABLET PO SCH (20:25)
[2018-02-01] MEDS: BENZTROPINE MESYLATE 1 MG TABLET PO SCH (20:25)
[2018-02-02 06:19] VITALS: BP 120/81
[2018-02-02] MEDS: CHOLECALCIFEROL (VIT D3) 1,000 UNITS TABLET PO SCH (08:42)
[2018-02-02 08:48] VITALS: BP 118/73
[2018-02-02 16:16] VITALS: BP 115/67
[2018-02-02] MEDS: TraZODone HCL 50 MG TABLET PO SCH (20:10)
[2018-02-02] MEDS: BENZTROPINE MESYLATE 1 MG TABLET PO SCH (20:10)
[2018-02-02] MEDS: LORazepam 2 MG TABLET PO PRN (21:51)
[2018-02-03 07:01] VITALS: BP 120/82
[2018-02-03 08:41] VITALS: BP 118/76
[2018-02-03] MEDS: CHOLECALCIFEROL (VIT D3) 1,000 UNITS TABLET PO SCH (09:04)
[2018-02-03 16:32] VITALS: BP 122/65
[2018-02-03] MEDS: TraZODone HCL 50 MG TABLET PO SCH (20:14)
[2018-02-03] MEDS: BENZTROPINE MESYLATE 1 MG TABLET PO SCH (20:14)
[2018-02-03] MEDS: ZOLPIDEM TARTRATE 10 MG TABLET PO PRN (22:15)
[2018-02-04 03:44] VITALS: BP 125/86
[2018-02-04 08:31] VITALS: BP 104/62
[2018-02-04] MEDS: CHOLECALCIFEROL (VIT D3) 1,000 UNITS TABLET PO SCH (09:42)
[2018-02-04 16:12] VITALS: BP 118/64
[2018-02-04] MEDS: TraZODone HCL 50 MG TABLET PO SCH (20:12)
[2018-02-04] MEDS: BENZTROPINE MESYLATE 1 MG TABLET PO SCH (20:12)
[2018-02-05] MEDS: ZOLPIDEM TARTRATE 10 MG TABLET PO PRN ×2 (02:30→22:37)
[2018-02-05 05:11] VITALS: BP 112/74
[2018-02-05] MEDS: CHOLECALCIFEROL (VIT D3) 1,000 UNITS TABLET PO SCH (09:56)
[2018-02-05 10:09] VITALS: BP 116/71
[2018-02-05] MEDS: TraZODone HCL 50 MG TABLET PO SCH (20:07)
[2018-02-05] MEDS: BENZTROPINE MESYLATE 1 MG TABLET PO SCH (20:07)
[2018-02-05 21:41] VITALS: BP 119/70
[2018-02-06 07:08] VITALS: BP 104/58
[2018-02-06 08:40] VITALS: BP 116/78
[2018-02-06] MEDS: CHOLECALCIFEROL (VIT D3) 1,000 UNITS TABLET PO SCH (09:25)
[2018-02-06 16:25] VITALS: BP 122/77
[2018-02-06] MEDS: BENZTROPINE MESYLATE 1 MG TABLET PO SCH (20:20)
[2018-02-06] MEDS: TraZODone HCL 50 MG TABLET PO SCH (20:20)
[2018-02-06] MEDS: ZOLPIDEM TARTRATE 10 MG TABLET PO PRN (20:20)
[2018-02-06] MEDS: HALOPERIDOL 5 MG TABLET PO PRN (21:48)
[2018-02-06] MEDS: LORazepam 2 MG TABLET PO PRN (21:48)
[2018-02-07 06:21] VITALS: BP 112/73
[2018-02-07 08:33] VITALS: BP 101/73
[2018-02-07] MEDS: CHOLECALCIFEROL (VIT D3) 1,000 UNITS TABLET PO SCH (09:22)
[2018-02-07 16:35] VITALS: BP 118/80
[2018-02-07] MEDS: BENZTROPINE MESYLATE 1 MG TABLET PO SCH (20:35)
[2018-02-07] MEDS: TraZODone HCL 50 MG TABLET PO SCH (20:35)
[2018-02-07] MEDS: LORazepam 2 MG TABLET PO PRN (20:35)
[2018-02-08 01:27] VITALS: BP 100/66
[2018-02-08 08:32] VITALS: BP 108/66
[2018-02-08] MEDS: CHOLECALCIFEROL (VIT D3) 1,000 UNITS TABLET PO SCH (08:49)
[2018-02-08 17:56] VITALS: BP 121/75
[2018-02-08] MEDS: TraZODone HCL 50 MG TABLET PO SCH (20:24)
[2018-02-08] MEDS: BENZTROPINE MESYLATE 1 MG TABLET PO SCH (20:25)
[2018-02-08] MEDS: LORazepam 2 MG TABLET PO PRN (20:25)
[2018-02-09 08:36] VITALS: BP 104/69
[2018-02-09] MEDS: CHOLECALCIFEROL (VIT D3) 1,000 UNITS TABLET PO SCH (08:56)
[2018-02-09 16:15] VITALS: BP 111/72
[2018-02-09] MEDS: BENZTROPINE MESYLATE 1 MG TABLET PO SCH (20:09)
[2018-02-09] MEDS: TraZODone HCL 50 MG TABLET PO SCH (20:09)
[2018-02-10] VITALS: BP 100/63
[2018-02-10 08:14] VITALS: BP 114/70
[2018-02-10] MEDS: CHOLECALCIFEROL (VIT D3) 1,000 UNITS TABLET PO SCH (09:20)
[2018-02-10 17:12] VITALS: BP 120/77
[2018-02-10] MEDS: BENZTROPINE MESYLATE 1 MG TABLET PO SCH (20:27)
[2018-02-10] MEDS: TraZODone HCL 50 MG TABLET PO SCH (20:27)
[2018-02-10] MEDS: SODIUM CHLORIDE 0.65% 44 ML NASAL SPRAY NASAL PRN (21:42)
[2018-02-10] MEDS: ZOLPIDEM TARTRATE 10 MG TABLET PO PRN (22:34)
[2018-02-10] MEDS: CARBAMIDE PEROXIDE 6.5% 15 ML OTIC SOLUTION AU SCH (23:30)
[2018-02-11 03:43] VITALS: BP 118/72
[2018-02-11 08:48] VITALS: BP 102/60
[2018-02-11] MEDS: CHOLECALCIFEROL (VIT D3) 1,000 UNITS TABLET PO SCH (09:57)
[2018-02-11] MEDS: CARBAMIDE PEROXIDE 6.5% 15 ML OTIC SOLUTION AU SCH (09:58)
[2018-02-11 16:31] VITALS: BP 116/69
[2018-02-11] MEDS: TraZODone HCL 50 MG TABLET PO SCH (20:42)
[2018-02-11] MEDS: BENZTROPINE MESYLATE 1 MG TABLET PO SCH (20:42)
[2018-02-11] MEDS: ZOLPIDEM TARTRATE 10 MG TABLET PO PRN (22:48)
[2018-02-12 07:09] VITALS: BP 120/81
[2018-02-12 08:21] VITALS: BP 120/73
[2018-02-12] MEDS: CHOLECALCIFEROL (VIT D3) 1,000 UNITS TABLET PO SCH (08:45)
[2018-02-12] MEDS: CARBAMIDE PEROXIDE 6.5% 15 ML OTIC SOLUTION AU SCH (08:46)
[2018-02-12 16:36] VITALS: BP 108/69
[2018-02-12] MEDS: IBUPROFEN 600 MG TABLET PO PRN (19:58)
[2018-02-12 20:00] VITALS: BP 112/80
[2018-02-12] MEDS: BENZTROPINE MESYLATE 1 MG TABLET PO SCH (20:02)
[2018-02-12] MEDS: TraZODone HCL 50 MG TABLET PO SCH (20:02)
[2018-02-12] MEDS: ZOLPIDEM TARTRATE 10 MG TABLET PO PRN (20:53)
[2018-02-13] VITALS: BP 102/61
[2018-02-13] MEDS: CHOLECALCIFEROL (VIT D3) 1,000 UNITS TABLET PO SCH (08:43)
[2018-02-13] MEDS: CARBAMIDE PEROXIDE 6.5% 15 ML OTIC SOLUTION AU SCH (08:43)
[2018-02-13 09:08] VITALS: BP 116/62
[2018-02-13 16:28] VITALS: BP 117/52
[2018-02-13] MEDS: TraZODone HCL 50 MG TABLET PO SCH (20:14)
[2018-02-13] MEDS: BENZTROPINE MESYLATE 1 MG TABLET PO SCH (20:14)
[2018-02-13] MEDS: ZOLPIDEM TARTRATE 10 MG TABLET PO PRN (22:51)
[2018-02-14 00:36] VITALS: BP 120/81
[2018-02-14] MEDS: CHOLECALCIFEROL (VIT D3) 1,000 UNITS TABLET PO SCH (08:35)
[2018-02-14 09:04] VITALS: BP 116/72
[2018-02-14 16:43] VITALS: BP 122/74
[2018-02-14] MEDS: TraZODone HCL 50 MG TABLET PO SCH (20:15)
[2018-02-14] MEDS: BENZTROPINE MESYLATE 1 MG TABLET PO SCH (20:15)
[2018-02-15] VITALS: BP 103/64
[2018-02-15] MEDS: ZOLPIDEM TARTRATE 10 MG TABLET PO PRN ×2 (01:03→21:46)
[2018-02-15 08:39] VITALS: BP 110/77
[2018-02-15] MEDS: CHOLECALCIFEROL (VIT D3) 1,000 UNITS TABLET PO SCH (08:50)
[2018-02-15 16:12] VITALS: BP 111/64
[2018-02-15] MEDS: BENZTROPINE MESYLATE 1 MG TABLET PO SCH (20:15)
[2018-02-15] MEDS: TraZODone HCL 50 MG TABLET PO SCH (20:15)
[2018-02-16 06:30] VITALS: BP 110/68
[2018-02-16] MEDS: CHOLECALCIFEROL (VIT D3) 1,000 UNITS TABLET PO SCH (08:31)
[2018-02-16 08:35] VITALS: BP 140/76
[2018-02-16 17:27] VITALS: BP 122/76
[2018-02-16] MEDS: BENZTROPINE MESYLATE 1 MG TABLET PO SCH (20:16)
[2018-02-16] MEDS: TraZODone HCL 50 MG TABLET PO SCH (20:16)
[2018-02-16] MEDS: ZOLPIDEM TARTRATE 10 MG TABLET PO PRN (22:36)
[2018-02-17 06:54] VITALS: BP 118/80
[2018-02-17 08:06] VITALS: BP 119/72
[2018-02-17] MEDS: PALIPERIDONE PALMITATE 234 MG/1.5 ML SYRINGE IM SCH (09:12)
[2018-02-17] MEDS: CHOLECALCIFEROL (VIT D3) 1,000 UNITS TABLET PO SCH (09:12)
[2018-02-17 16:35] VITALS: BP 121/71
[2018-02-17] MEDS: TraZODone HCL 50 MG TABLET PO SCH (20:15)
[2018-02-17] MEDS: BENZTROPINE MESYLATE 1 MG TABLET PO SCH (20:15)
[2018-02-17] MEDS: ZOLPIDEM TARTRATE 10 MG TABLET PO PRN (20:39)
[2018-02-18 05:29] VITALS: BP 120/82
[2018-02-18 08:19] VITALS: BP 114/68
[2018-02-18] MEDS: CHOLECALCIFEROL (VIT D3) 1,000 UNITS TABLET PO SCH (08:34)
[2018-02-18 16:14] VITALS: BP 120/71
[2018-02-18] MEDS: TraZODone HCL 50 MG TABLET PO SCH (20:26)
[2018-02-18] MEDS: BENZTROPINE MESYLATE 1 MG TABLET PO SCH (20:26)
[2018-02-18] MEDS: ZOLPIDEM TARTRATE 10 MG TABLET PO PRN (21:08)
[2018-02-19 06:49] VITALS: BP 118/62
[2018-02-19 08:25] VITALS: BP 105/60
[2018-02-19] MEDS: CHOLECALCIFEROL (VIT D3) 1,000 UNITS TABLET PO SCH (08:35)
[2018-02-19 16:15] VITALS: BP 116/69
[2018-02-19] MEDS: TraZODone HCL 50 MG TABLET PO SCH (20:06)
[2018-02-19] MEDS: BENZTROPINE MESYLATE 1 MG TABLET PO SCH (20:06)
[2018-02-19] MEDS: ZOLPIDEM TARTRATE 10 MG TABLET PO PRN (21:07)
[2018-02-20 00:27] VITALS: BP 120/81
[2018-02-20 08:16] VITALS: BP 108/71
[2018-02-20] MEDS: CHOLECALCIFEROL (VIT D3) 1,000 UNITS TABLET PO SCH (09:07)
[2018-02-20 16:25] VITALS: BP 115/72
[2018-02-20] MEDS: BENZTROPINE MESYLATE 1 MG TABLET PO SCH (20:21)
[2018-02-20] MEDS: TraZODone HCL 50 MG TABLET PO SCH (20:21)
[2018-02-20] MEDS: ZOLPIDEM TARTRATE 10 MG TABLET PO PRN (21:26)
[2018-02-21 01:17] VITALS: BP 101/63
[2018-02-21 08:36] VITALS: BP 109/69
[2018-02-21] MEDS: CHOLECALCIFEROL (VIT D3) 1,000 UNITS TABLET PO SCH (09:14)
[2018-02-21 16:27] VITALS: BP 120/72
[2018-02-21] MEDS: BENZTROPINE MESYLATE 1 MG TABLET PO SCH (20:19)
[2018-02-21] MEDS: TraZODone HCL 50 MG TABLET PO SCH (20:20)
[2018-02-21] MEDS: ZOLPIDEM TARTRATE 10 MG TABLET PO PRN (21:23)
[2018-02-22 06:51] VITALS: BP 110/68
[2018-02-22 08:27] VITALS: BP 100/56
[2018-02-22] MEDS: CHOLECALCIFEROL (VIT D3) 1,000 UNITS TABLET PO SCH (08:47)
[2018-02-22 16:17] VITALS: BP 122/67
[2018-02-22] MEDS: BENZTROPINE MESYLATE 1 MG TABLET PO SCH (20:05)
[2018-02-22] MEDS: TraZODone HCL 50 MG TABLET PO SCH (20:06)
[2018-02-22] MEDS: ZOLPIDEM TARTRATE 10 MG TABLET PO PRN (22:25)
[2018-02-23 05:42] VITALS: BP 113/56
[2018-02-23] MEDS: CHOLECALCIFEROL (VIT D3) 1,000 UNITS TABLET PO SCH (08:58)
[2018-02-23 11:00] VITALS: BP 117/74
[2018-02-23 17:43] VITALS: BP 118/72
[2018-02-23] MEDS: TraZODone HCL 50 MG TABLET PO SCH (20:40)
[2018-02-23] MEDS: BENZTROPINE MESYLATE 1 MG TABLET PO SCH (20:40)
[2018-02-23] MEDS: IBUPROFEN 600 MG TABLET PO PRN (21:24)
[2018-02-23] MEDS: ZOLPIDEM TARTRATE 10 MG TABLET PO PRN (22:33)
[2018-02-24] MEDS ORDERED: BENZ1TAB10 PO (03:52)
[2018-02-24] MEDS ORDERED: VITAD1000 PO (03:52)
[2018-02-24 06:10] VITALS: BP 105/66
[2018-02-24 08:31] VITALS: BP 110/72
[2018-02-24] MEDS: CHOLECALCIFEROL (VIT D3) 1,000 UNITS TABLET PO SCH (08:54)
[2018-02-24 16:26] VITALS: BP 122/67
[2018-02-24] MEDS: TraZODone HCL 50 MG TABLET PO SCH (20:34)
[2018-02-24] MEDS: BENZTROPINE MESYLATE 1 MG TABLET PO SCH (20:34)
[2018-02-24] MEDS: ZOLPIDEM TARTRATE 10 MG TABLET PO PRN (21:09)
[2018-02-25 06:19] VITALS: BP 108/65
[2018-02-25 08:00] VITALS: BP 110/65
[2018-02-25] MEDS: CHOLECALCIFEROL (VIT D3) 1,000 UNITS TABLET PO SCH (08:50)
== END 2018-02-25 11:00 | DRG 750 ==
LOC: B3A 03:08 → B2S 10-19 15:25
PROVIDERS: ADMIT Psychiatry & Neurology Psychiatry; ATTEND Psychiatry & Neurology Psychiatry
DX: F25.1 Schizoaffective disorder, depressive type (principal); E55.9 Vitamin D deficiency, unspecified; F84.0 Autistic disorder; K59.00 Constipation, unspecified; F12.90 Cannabis use, unspecified, uncomplicated; G47.00 Insomnia, unspecified; D72.829 Elevated white blood cell count, unspecified; E87.6 Hypokalemia; H92.03 Otalgia, bilateral
CPT/HCPCS: 80074; 80307; 82306; 83735; 84100; 84132; 84439; 84443; 85007; 87081; J1200; J1630; J2060

== ENCOUNTER 2021-06-03 11:10 | Inpatient (IN) | payer MEDICAID, OTHER ==
[~2021-06-03] VITALS: Ht 165.1 cm; Wt 52.7 kg
[~2021-06-03 11:10] MED LIST changes: +CHOL100018 PO; -TRAZ-144 PO; +TRAZ-252 PO
[2021-06-03 12:01] LABS: BASOPHILS % (AUTO) 0.6 % (0.0-2.0); EOSINOPHILS % (AUTO) 0.3 % (1.0-6.0); HEMATOCRIT 43.6 % (41-53); HEMOGLOBIN 14.8 g/dL (13.5-17.5); LYMPHOCYTES # (AUTO) 1.3 K/uL (1.0-4.8); LYMPHOCYTES % (AUTO) 16.3 % (22.0-44.0); MEAN CORPUSCULAR HEMOGLOBIN 30.1 pg (26.0-34.0); MEAN CORPUSCULAR HGB CONC 34.1 G/dL (31.0-37.0); MEAN CORPUSCULAR VOLUME 88 fL (80-100); MONOCYTES # (AUTO) 0.7 K/uL (0.1-1.0); MONOCYTES % (AUTO) 9.5 % (2.0-9.0); NEUTROPHILS # (AUTO) 5.6 K/uL (1.8-7.7); NEUTROPHILS % (AUTO) 73.3 % (40.0-70.0); PLATELET COUNT (AUTO) 246 K/uL (150-450); RED BLOOD CELL COUNT(AUTO) 4.93 MIL/uL (4.50-5.90)
[2021-06-03 12:03] LABS: COVID AG,FIA SOURCE NASOPHARYNGEAL
[2021-06-03 12:17] LABS: ANION GAP 20 mmol/L (8-16); CALCIUM, TOTAL 9.3 mg/dL (8.8-10.5); CARBON DIOXIDE 19 mmol/L (22-29); CHLORIDE 102 mmol/L (98-107); CREATININE 0.94 mg/dL (0.60-1.30); GLOMERULAR FILTR. RATE CALC > 60 mL/min (>60); GLUCOSE,RANDOM 86 mg/dL (70-110); POTASSIUM 3.6 mmol/L (3.5-5.1); SODIUM SERUM 141 mmol/L (136-145); UREA NITROGEN, BLOOD 17 mg/dL (7-18)
[2021-06-03 12:33] LABS: ALANINE AMINOTRANSFERASE 31 U/L (12-78); ALBUMIN 4.7 g/dL (3.4-5.0); ALKALINE PHOSPHATASE 51 U/L (46-116); ASPARTATE AMINOTRANSFERASE 35 U/L (15-37); BILIRUBIN,TOTAL 2.4 mg/dL (0.1-1.0); TOTAL PROTEIN, SERUM 7.9 g/dL (6.4-8.2)
[2021-06-03] MEDS ORDERED: MAG HYDROX/AL HYDROX/SIMETH ES 30 ML SUSPENSION UDCUP PO PRN (13:45)
[2021-06-03] MEDS ORDERED: ACETAMINOPHEN 325 MG TABLET PO PRN (13:45)
[2021-06-03] MEDS ORDERED: HydrOXYzine PAMOATE 50 MG CAPSULE PO PRN (13:45)
[2021-06-03] MEDS ORDERED: PROMETHAZINE HCL 25 MG TABLET PO PRN (13:45)
[2021-06-03] MEDS ORDERED: LOPERAMIDE HCL 2 MG CAPSULE PO PRN (13:45)
[2021-06-03] MEDS ORDERED: TUBERCULIN, PURIFIED PROTEIN DERIVATIVE 5 TU/0.1 ML SYRINGE ID ONE (13:45)
[2021-06-03] MEDS ORDERED: ZOLPIDEM TARTRATE 10 MG TABLET PO PRN (13:45)
[2021-06-03] MEDS ORDERED: GuaiFENesin/D-METHORPHAN [SUGAR-FREE] 200-20MG/10 ML SYRUP UDCUP PO PRN (13:45)
[2021-06-03] MEDS ORDERED: OLANZapine 5 MG RAPDIS TABLET PO PRN (13:45)
[2021-06-03] MEDS ORDERED: MAGNESIUM HYDROXIDE SUSPENSION 30 ML UDCUP PO PRN (13:45)
[2021-06-03 14:40] LABS: AMPHET/METH SCREEN,URINE NEGATIVE (NEGATIVE); BARBITURATE SCREEN, URINE NEGATIVE (NEGATIVE); BENZODIAZEPINES SCREEN,URINE NEGATIVE (NEGATIVE); CANNABINOID SCREEN,URINE POSITIVE (NEGATIVE); COCAINE SCREEN,URINE NEGATIVE (NEGATIVE); METHADONE SCREEN, URINE NEGATIVE (NEGATIVE); OPIATE SCREEN,URINE NEGATIVE (NEGATIVE); PHENCYCLIDINE SCREEN,URINE NEGATIVE (NEGATIVE)
[2021-06-03 17:57] VITALS: BP 132/89
[2021-06-03] MEDS: THIAMINE 100 MG TABLET PO SCH (20:18)
[2021-06-03] MEDS: MELATONIN 5 MG TABLET PO SCH (20:18)
[2021-06-03] MEDS ORDERED: OLANZapine 10 MG RAPDIS TABLET PO SCH (21:00)
[2021-06-04 04:27] VITALS: BP 130/84
[2021-06-04 08:00] LABS: HEMOGLOBIN A1C 5.1 % (3.8-5.6)
[2021-06-04 08:03] VITALS: BP 154/97
[2021-06-04 08:16] LABS: CHOL/HDL RATIO 2.1 (4.2-7.3); FREE T4 (FREE THYROXINE) 1.38 ng/dL (0.76-1.46); THYROID STIMULATING HORMONE 1.19 uIU/mL (0.36-3.74)
[2021-06-04] MEDS: MULTIVITAMINS WITH MINERALS, THERAPEUTIC TABLET PO SCH (09:00)
[2021-06-04] MEDS: NALTREXONE HCL 50 MG TABLET PO SCH (09:00)
[2021-06-04] MEDS: THIAMINE 100 MG TABLET PO SCH ×2 (09:00→16:49)
[2021-06-04] MEDS: OMEGA-3/DHA/EPA/FISH OIL 1,000 MG CAPSULE PO SCH (09:00)
[2021-06-04] MEDS: FOLIC ACID 1 MG TABLET PO SCH (09:01)
[2021-06-04 16:00] VITALS: BP 148/91
[2021-06-04] MEDS: MELATONIN 5 MG TABLET PO SCH (20:29)
[2021-06-04] MEDS ORDERED: OLANZapine 5 MG RAPDIS TABLET PO SCH (21:00)
[2021-06-05 08:00] VITALS: BP 121/71
[2021-06-05] MEDS: THIAMINE 100 MG TABLET PO SCH ×2 (09:06→16:28)
[2021-06-05] MEDS: MULTIVITAMINS WITH MINERALS, THERAPEUTIC TABLET PO SCH (09:06)
[2021-06-05] MEDS: NALTREXONE HCL 50 MG TABLET PO SCH (09:06)
[2021-06-05] MEDS: FOLIC ACID 1 MG TABLET PO SCH (09:06)
[2021-06-05] MEDS: OMEGA-3/DHA/EPA/FISH OIL 1,000 MG CAPSULE PO SCH (09:06)
[2021-06-05 11:15] VITALS: BP 121/71
[2021-06-05 16:00] VITALS: BP 145/74
[2021-06-05] MEDS: OLANZapine 10 MG RAPDIS TABLET PO SCH (20:32)
[2021-06-05] MEDS: MELATONIN 5 MG TABLET PO SCH (20:32)
[2021-06-06 08:00] VITALS: BP 142/87
[2021-06-06] MEDS: OMEGA-3/DHA/EPA/FISH OIL 1,000 MG CAPSULE PO SCH (08:30)
[2021-06-06] MEDS: FOLIC ACID 1 MG TABLET PO SCH (08:30)
[2021-06-06] MEDS: NALTREXONE HCL 50 MG TABLET PO SCH (08:30)
[2021-06-06] MEDS: MULTIVITAMINS WITH MINERALS, THERAPEUTIC TABLET PO SCH (08:30)
[2021-06-06] MEDS: THIAMINE 100 MG TABLET PO SCH ×2 (08:31→16:29)
[2021-06-06 16:11] VITALS: BP 141/77
[2021-06-06] MEDS: MELATONIN 5 MG TABLET PO SCH (21:04)
[2021-06-06] MEDS: OLANZapine 10 MG RAPDIS TABLET PO SCH (21:05)
[2021-06-07] MEDS: THIAMINE 100 MG TABLET PO SCH ×2 (09:31→17:09)
[2021-06-07] MEDS: NALTREXONE HCL 50 MG TABLET PO SCH (09:31)
[2021-06-07] MEDS: MULTIVITAMINS WITH MINERALS, THERAPEUTIC TABLET PO SCH (09:31)
[2021-06-07] MEDS: OMEGA-3/DHA/EPA/FISH OIL 1,000 MG CAPSULE PO SCH (09:31)
[2021-06-07] MEDS: FOLIC ACID 1 MG TABLET PO SCH (09:31)
[2021-06-07 10:03] VITALS: BP 145/80
[2021-06-07 16:30] VITALS: BP 130/80
[2021-06-07] MEDS: MELATONIN 5 MG TABLET PO SCH (20:58)
[2021-06-07] MEDS: OLANZapine 10 MG RAPDIS TABLET PO SCH (20:58)
[2021-06-08] MEDS: FOLIC ACID 1 MG TABLET PO SCH (08:46)
[2021-06-08] MEDS: OMEGA-3/DHA/EPA/FISH OIL 1,000 MG CAPSULE PO SCH (08:46)
[2021-06-08] MEDS: NALTREXONE HCL 50 MG TABLET PO SCH (08:46)
[2021-06-08] MEDS: MULTIVITAMINS WITH MINERALS, THERAPEUTIC TABLET PO SCH (08:46)
[2021-06-08] MEDS: THIAMINE 100 MG TABLET PO SCH ×2 (08:46→16:28)
[2021-06-08 09:34] VITALS: BP 150/95
[2021-06-08 16:00] VITALS: BP 131/82
[2021-06-08] MEDS: MELATONIN 5 MG TABLET PO SCH (20:06)
[2021-06-08] MEDS: OLANZapine 10 MG RAPDIS TABLET PO SCH (20:06)
[2021-06-09 02:34] VITALS: BP 125/80
[2021-06-09 08:18] VITALS: BP 123/78
[2021-06-09] MEDS: FOLIC ACID 1 MG TABLET PO SCH (08:38)
[2021-06-09] MEDS: MULTIVITAMINS WITH MINERALS, THERAPEUTIC TABLET PO SCH (08:38)
[2021-06-09] MEDS: OMEGA-3/DHA/EPA/FISH OIL 1,000 MG CAPSULE PO SCH (08:38)
[2021-06-09] MEDS: NALTREXONE HCL 50 MG TABLET PO SCH (08:38)
[2021-06-09] MEDS: THIAMINE 100 MG TABLET PO SCH ×2 (08:38→16:30)
[2021-06-09 16:29] VITALS: BP 148/84
[2021-06-09] MEDS: MELATONIN 5 MG TABLET PO SCH (20:06)
[2021-06-09] MEDS: OLANZapine 10 MG RAPDIS TABLET PO SCH (20:06)
[2021-06-10] MEDS: MULTIVITAMINS WITH MINERALS, THERAPEUTIC TABLET PO SCH (08:28)
[2021-06-10] MEDS: NALTREXONE HCL 50 MG TABLET PO SCH (08:28)
[2021-06-10] MEDS: FOLIC ACID 1 MG TABLET PO SCH (08:28)
[2021-06-10] MEDS: THIAMINE 100 MG TABLET PO SCH ×2 (08:28→16:13)
[2021-06-10] MEDS: OMEGA-3/DHA/EPA/FISH OIL 1,000 MG CAPSULE PO SCH (09:00)
[2021-06-10 09:15] VITALS: BP 138/78
[2021-06-10 15:09] LABS: COVID AG,FIA SOURCE NASAL SWAB
[2021-06-10 16:13] VITALS: BP 129/72
[2021-06-10] MEDS: LORazepam 2 MG TABLET PO PRN (16:13)
[2021-06-10] MEDS: OLANZapine 10 MG RAPDIS TABLET PO SCH (20:14)
[2021-06-10] MEDS: MELATONIN 5 MG TABLET PO SCH (20:14)
[2021-06-11 08:19] VITALS: BP 146/97
[2021-06-11] MEDS ORDERED: ATOMOXETINE HCL 25 MG CAPSULE PO SCH (09:00)
[2021-06-11] MEDS: OMEGA-3/DHA/EPA/FISH OIL 1,000 MG CAPSULE PO SCH (09:17)
[2021-06-11] MEDS: MULTIVITAMINS WITH MINERALS, THERAPEUTIC TABLET PO SCH (09:17)
[2021-06-11] MEDS: NALTREXONE HCL 50 MG TABLET PO SCH (09:17)
[2021-06-11] MEDS: FOLIC ACID 1 MG TABLET PO SCH (09:17)
[2021-06-11] MEDS: THIAMINE 100 MG TABLET PO SCH ×2 (09:17→16:28)
[2021-06-11 16:51] VITALS: BP 142/75
[2021-06-11] MEDS: OLANZapine 10 MG RAPDIS TABLET PO SCH (20:14)
[2021-06-11] MEDS: MELATONIN 5 MG TABLET PO SCH (20:14)
[2021-06-12 03:12] VITALS: BP 138/74
[2021-06-12 08:00] VITALS: BP 132/75
[2021-06-12] MEDS: OMEGA-3/DHA/EPA/FISH OIL 1,000 MG CAPSULE PO SCH (08:32)
[2021-06-12] MEDS: FOLIC ACID 1 MG TABLET PO SCH (08:33)
[2021-06-12] MEDS: NALTREXONE HCL 50 MG TABLET PO SCH (08:33)
[2021-06-12] MEDS: OLANZapine 10 MG RAPDIS TABLET PO SCH (20:40)
[2021-06-12] MEDS: DiphenhydrAMINE HCL 25 MG CAPSULE PO PRN (21:31)
[2021-06-13 00:20] VITALS: BP 129/78
[2021-06-13 08:58] VITALS: BP 128/86
[2021-06-13] MEDS: NALTREXONE HCL 50 MG TABLET PO SCH (09:00)
[2021-06-13] MEDS: OMEGA-3/DHA/EPA/FISH OIL 1,000 MG CAPSULE PO SCH (09:31)
[2021-06-13] MEDS: FOLIC ACID 1 MG TABLET PO SCH (09:31)
[2021-06-13 16:00] VITALS: BP 134/70
[2021-06-13] MEDS: OLANZapine 10 MG RAPDIS TABLET PO SCH (20:11)
[2021-06-13] MEDS: DiphenhydrAMINE HCL 25 MG CAPSULE PO PRN (21:46)
[2021-06-14 03:20] VITALS: BP 130/80
[2021-06-14 08:58] VITALS: BP 130/85
[2021-06-14] MEDS: OMEGA-3/DHA/EPA/FISH OIL 1,000 MG CAPSULE PO SCH (09:00)
[2021-06-14] MEDS: NALTREXONE HCL 50 MG TABLET PO SCH (09:00)
[2021-06-14 16:08] VITALS: BP 137/84
[2021-06-14] MEDS: OLANZapine 10 MG RAPDIS TABLET PO SCH (20:09)
[2021-06-14] MEDS: DiphenhydrAMINE HCL 25 MG CAPSULE PO PRN (21:52)
[2021-06-15 08:38] VITALS: BP 128/77
[2021-06-15] MEDS: NALTREXONE HCL 50 MG TABLET PO SCH (10:09)
[2021-06-15] MEDS: OMEGA-3/DHA/EPA/FISH OIL 1,000 MG CAPSULE PO SCH (10:09)
[2021-06-15 16:39] VITALS: BP 125/77
[2021-06-15] MEDS: DiphenhydrAMINE HCL 25 MG CAPSULE PO PRN (21:17)
[2021-06-15] MEDS: LORazepam 2 MG TABLET PO PRN (21:17)
[2021-06-15] MEDS: OLANZapine 10 MG RAPDIS TABLET PO SCH (21:18)
[2021-06-16] MEDS ORDERED: MAGNESIUM CITRATE 300 ML ORAL SOLUTION PO ONE (07:00)
[2021-06-16 08:54] VITALS: BP 125/79
[2021-06-16] MEDS: NALTREXONE HCL 50 MG TABLET PO SCH (09:00)
[2021-06-16] MEDS: OMEGA-3/DHA/EPA/FISH OIL 1,000 MG CAPSULE PO SCH (09:00)
[2021-06-16 16:15] VITALS: BP 136/75
[2021-06-16] MEDS: LORazepam 2 MG TABLET PO PRN (21:26)
[2021-06-16] MEDS: OLANZapine 10 MG RAPDIS TABLET PO SCH (21:26)
[2021-06-16] MEDS: DiphenhydrAMINE HCL 25 MG CAPSULE PO PRN (21:27)
[2021-06-17] MEDS: OMEGA-3/DHA/EPA/FISH OIL 1,000 MG CAPSULE PO SCH (08:29)
[2021-06-17] MEDS: NALTREXONE HCL 50 MG TABLET PO SCH ×3 (08:29→08:34)
[2021-06-17 09:24] VITALS: BP 132/80
[2021-06-17 17:02] VITALS: BP 136/75
[2021-06-17] MEDS: OLANZapine 10 MG RAPDIS TABLET PO SCH (20:09)
[2021-06-17 20:22] LABS: COVID AG,FIA SOURCE NASAL SWAB
[2021-06-17] MEDS: DiphenhydrAMINE HCL 25 MG CAPSULE PO PRN (20:44)
[2021-06-18] MEDS: NALTREXONE HCL 50 MG TABLET PO SCH (09:00)
[2021-06-18] MEDS: OMEGA-3/DHA/EPA/FISH OIL 1,000 MG CAPSULE PO SCH (09:34)
[2021-06-18 10:28] VITALS: BP 120/62
[2021-06-18] MEDS ORDERED: OMEG-135 PO (14:29)
[2021-06-18] MEDS ORDERED: NALT50TA PO (14:29)
[2021-06-18] MEDS ORDERED: OLAN10TA26 PO (14:29)
== END 2021-06-18 15:32 | disposition home or self-care (01) | DRG 750 ==
LOC: EMS 11:23 → 3EI 18:42
PROVIDERS: ADMIT Psychiatry & Neurology Psychiatry; ATTEND Psychiatry & Neurology Psychiatry
DX: F25.0 Schizoaffective disorder, bipolar type (principal); F70 Mild intellectual disabilities; R45.851 Suicidal ideations; F12.10 Cannabis abuse, uncomplicated; F17.200 Nicotine dependence, unspecified, uncomplicated; F41.9 Anxiety disorder, unspecified; F84.0 Autistic disorder; K59.00 Constipation, unspecified; Z59.9 Problem related to housing and economic circumstances, unspecified; Z65.3 Problems related to other legal circumstances; Z81.8 Family history of other mental and behavioral disorders; Z91.19 Patient's noncompliance with other medical treatment and regimen; Z20.822 Contact with and (suspected) exposure to COVID-19
CPT/HCPCS: 80053; 80061; 83036; 84439; 84443; 85025; 86592; 99285; A9575; G0480

== ENCOUNTER 2021-07-22 13:11 | Inpatient (IN) | payer MEDICAID, OTHER ==
[~2021-07-22] VITALS: Ht 160 cm; Wt 67.0 kg
[~2021-07-22 13:11] MED LIST changes: -BENZ1TAB10 PO; -CHOL100018 PO; +NALT50TA PO; +OLAN10TA26 PO; +OMEG-135 PO; -PALI234D IM; -TRAZ-252 PO
[2021-07-22] MEDS ORDERED: LORazepam 2 MG TABLET PO ONE (13:30)
[2021-07-22] MEDS ORDERED: HALOPERIDOL 5 MG TABLET PO ONE (13:30)
[2021-07-22] MEDS ORDERED: DiphenhydrAMINE HCL 50 MG/ML VIAL IM ONE (13:45)
[2021-07-22] MEDS ORDERED: LORazepam 2 MG/ML VIAL IM ONE (13:45)
[2021-07-22] MEDS ORDERED: HALOPERIDOL LACTATE 5 MG/ML VIAL IM ONE (13:45)
[2021-07-22] MEDS ORDERED: PROMETHAZINE HCL 25 MG TABLET PO PRN (14:00)
[2021-07-22] MEDS ORDERED: PALIPERIDONE PALMITATE 234 MG/1.5 ML SYRINGE IM ONE (14:00)
[2021-07-22 14:11] LABS: BASOPHILS % (AUTO) 0.8 % (0.0-2.0); EOSINOPHILS % (AUTO) 0.1 % (1.0-6.0); HEMATOCRIT 42.4 % (41-53); HEMOGLOBIN 14.3 g/dL (13.5-17.5); LYMPHOCYTES # (AUTO) 1.6 K/uL (1.0-4.8); LYMPHOCYTES % (AUTO) 12.6 % (22.0-44.0); MEAN CORPUSCULAR HEMOGLOBIN 30.1 pg (26.0-34.0); MEAN CORPUSCULAR HGB CONC 33.7 G/dL (31.0-37.0); MEAN CORPUSCULAR VOLUME 89 fL (80-100); MONOCYTES # (AUTO) 1.5 K/uL (0.1-1.0); MONOCYTES % (AUTO) 12.2 % (2.0-9.0); NEUTROPHILS # (AUTO) 9.2 K/uL (1.8-7.7); NEUTROPHILS % (AUTO) 74.3 % (40.0-70.0); PLATELET COUNT (AUTO) 220 K/uL (150-450); RED BLOOD CELL COUNT(AUTO) 4.74 MIL/uL (4.50-5.90); RED CELL DISTRIBUTION WIDTH 13.2 % (11.5-14.5)
[2021-07-22 14:23] LABS: ANION GAP 16 mmol/L (8-16); CARBON DIOXIDE 23 mmol/L (22-29); CHLORIDE 102 mmol/L (98-107); CREATININE 1.14 mg/dL (0.60-1.30); GLOMERULAR FILTR. RATE CALC > 60 mL/min (>60); GLUCOSE,RANDOM 95 mg/dL (70-110); POTASSIUM 4.4 mmol/L (3.5-5.1); SODIUM SERUM 141 mmol/L (136-145); UREA NITROGEN, BLOOD 12 mg/dL (7-18)
[2021-07-22 14:33] LABS: COVID AG,FIA SOURCE NASOPHARYNGEAL
[2021-07-22 14:33] LABS: ALANINE AMINOTRANSFERASE 28 U/L (12-78); ALBUMIN 4.7 g/dL (3.4-5.0); ALKALINE PHOSPHATASE 54 U/L (46-116); ASPARTATE AMINOTRANSFERASE 32 U/L (15-37); BILIRUBIN,TOTAL 2.5 mg/dL (0.1-1.0); TOTAL PROTEIN, SERUM 7.5 g/dL (6.4-8.2)
[2021-07-22 19:26] VITALS: BP 132/71
[2021-07-22] MEDS: THIAMINE 100 MG TABLET PO SCH (21:16)
[2021-07-22] MEDS: OLANZapine 5 MG RAPDIS TABLET PO SCH (21:17)
[2021-07-23] MEDS ORDERED: LORazepam 2 MG/ML VIAL IM ONE (05:15)
[2021-07-23] MEDS ORDERED: HALOPERIDOL LACTATE 5 MG/ML VIAL IM ONE (05:15)
[2021-07-23] MEDS ORDERED: DiphenhydrAMINE HCL 50 MG/ML VIAL IM ONE (05:15)
[2021-07-23 08:32] VITALS: BP 97/51
[2021-07-23] MEDS ORDERED: ATOMOXETINE HCL 10 MG CAPSULE PO SCH (09:00)
[2021-07-23] MEDS: NALTREXONE HCL 50 MG TABLET PO SCH (10:23)
[2021-07-23] MEDS: THIAMINE 100 MG TABLET PO SCH ×2 (10:23→16:28)
[2021-07-23] MEDS: OMEGA-3/DHA/EPA/FISH OIL 1,000 MG CAPSULE PO SCH (10:24)
[2021-07-23] MEDS: FOLIC ACID 1 MG TABLET PO SCH (10:24)
[2021-07-23] MEDS: MULTIVITAMINS WITH MINERALS, THERAPEUTIC TABLET PO SCH (10:25)
[2021-07-23 15:30] VITALS: BP 145/92
[2021-07-23 16:00] VITALS: BP 153/90
[2021-07-23 17:59] VITALS: BP 146/92
[2021-07-23 19:00] VITALS: BP 143/90
[2021-07-23] MEDS: OLANZapine 5 MG RAPDIS TABLET PO SCH (20:13)
[2021-07-23] MEDS: OLANZapine 10 MG RAPDIS TABLET PO SCH (21:00)
[2021-07-24] MEDS: ZOLPIDEM TARTRATE 10 MG TABLET PO PRN (03:44)
[2021-07-24] MEDS: LORazepam 2 MG TABLET PO PRN ×2 (03:44→09:20)
[2021-07-24 08:42] VITALS: BP 132/103
[2021-07-24] MEDS: NALTREXONE HCL 50 MG TABLET PO SCH (09:00)
[2021-07-24] MEDS: THIAMINE 100 MG TABLET PO SCH ×2 (09:20→17:38)
[2021-07-24] MEDS: MULTIVITAMINS WITH MINERALS, THERAPEUTIC TABLET PO SCH (09:20)
[2021-07-24] MEDS: FOLIC ACID 1 MG TABLET PO SCH (09:20)
[2021-07-24] MEDS: OMEGA-3/DHA/EPA/FISH OIL 1,000 MG CAPSULE PO SCH (09:20)
[2021-07-24] MEDS: OLANZapine 5 MG RAPDIS TABLET PO PRN (09:22)
[2021-07-24 09:33] LABS: BASOPHILS % (AUTO) 0.6 % (0.0-2.0); EOSINOPHILS % (AUTO) 1.9 % (1.0-6.0); HEMATOCRIT 46.6 % (41-53); HEMOGLOBIN 15.4 g/dL (13.5-17.5); LYMPHOCYTES # (AUTO) 1.6 K/uL (1.0-4.8); LYMPHOCYTES % (AUTO) 13.8 % (22.0-44.0); MEAN CORPUSCULAR HEMOGLOBIN 30.3 pg (26.0-34.0); MEAN CORPUSCULAR HGB CONC 33.1 G/dL (31.0-37.0); MEAN CORPUSCULAR VOLUME 91 fL (80-100); MONOCYTES # (AUTO) 0.9 K/uL (0.1-1.0); MONOCYTES % (AUTO) 7.5 % (2.0-9.0); NEUTROPHILS # (AUTO) 8.9 K/uL (1.8-7.7); NEUTROPHILS % (AUTO) 76.2 % (40.0-70.0); PLATELET COUNT (AUTO) 208 K/uL (150-450); RED CELL DISTRIBUTION WIDTH 13.4 % (11.5-14.5)
[2021-07-24 12:52] LABS: APPEARANCE,URINE CLEAR (CLEAR); BILIRUBIN,URINE NEGATIVE (NEGATIVE); GLUCOSE, URINE (UA) NEGATIVE (NEGATIVE); KETONES,URINE NEGATIVE (NEGATIVE); LEUKOCYTE ESTERASE ,URINE NEGATIVE (NEGATIVE); NITRATE,URINE NEGATIVE (NEGATIVE); OCCULT BLOOD,URINE NEGATIVE (NEGATIVE); PROTEIN,URINE NEGATIVE (NEGATIVE); UROBILINOGEN,URINE 0.2 mg/dL (<=1.0)
[2021-07-24 12:56] LABS: AMPHET/METH SCREEN,URINE NEGATIVE (NEGATIVE); BARBITURATE SCREEN, URINE NEGATIVE (NEGATIVE); BENZODIAZEPINES SCREEN,URINE NEGATIVE (NEGATIVE); CANNABINOID SCREEN,URINE POSITIVE (NEGATIVE); COCAINE SCREEN,URINE NEGATIVE (NEGATIVE); METHADONE SCREEN, URINE NEGATIVE (NEGATIVE); OPIATE SCREEN,URINE NEGATIVE (NEGATIVE)
[2021-07-24 12:58] LABS: PHENCYCLIDINE SCREEN,URINE NEGATIVE (NEGATIVE)
[2021-07-24 16:20] VITALS: BP 140/99
[2021-07-24 16:21] VITALS: BP 140/90
[2021-07-24] MEDS: HydrOXYzine PAMOATE 50 MG CAPSULE PO PRN (17:39)
[2021-07-24] MEDS ORDERED: HALOPERIDOL LACTATE 5 MG/ML VIAL ONE (20:10)
[2021-07-24] MEDS ORDERED: DiphenhydrAMINE HCL 50 MG/ML VIAL ONE (20:10)
[2021-07-24] MEDS ORDERED: LORazepam 2 MG/ML VIAL ONE (20:12)
[2021-07-24] MEDS ORDERED: DiphenhydrAMINE HCL 50 MG/ML VIAL IM ONE (20:15)
[2021-07-24] MEDS ORDERED: HALOPERIDOL LACTATE 5 MG/ML VIAL IM ONE (20:15)
[2021-07-24] MEDS ORDERED: LORazepam 2 MG/ML VIAL IM ONE (20:15)
[2021-07-24] MEDS: OLANZapine 10 MG RAPDIS TABLET PO SCH (21:09)
[2021-07-25] MEDS: LORazepam 2 MG TABLET PO PRN (01:41)
[2021-07-25 01:54] VITALS: BP 150/94
[2021-07-25 02:06] VITALS: BP 145/95
[2021-07-25] MEDS: ZOLPIDEM TARTRATE 10 MG TABLET PO PRN ×2 (03:02→20:39)
[2021-07-25] MEDS: OMEGA-3/DHA/EPA/FISH OIL 1,000 MG CAPSULE PO SCH (08:57)
[2021-07-25] MEDS: MULTIVITAMINS WITH MINERALS, THERAPEUTIC TABLET PO SCH (08:57)
[2021-07-25] MEDS: FOLIC ACID 1 MG TABLET PO SCH (08:57)
[2021-07-25] MEDS: NALTREXONE HCL 50 MG TABLET PO SCH (08:57)
[2021-07-25] MEDS: THIAMINE 100 MG TABLET PO SCH ×2 (08:57→16:14)
[2021-07-25 12:54] VITALS: BP 124/76
[2021-07-25 16:26] VITALS: BP 121/81
[2021-07-25] MEDS ORDERED: PALIPERIDONE PALMITATE 234 MG/1.5 ML SYRINGE IM ONE (16:45)
[2021-07-25] MEDS: OLANZapine 10 MG RAPDIS TABLET PO SCH (20:17)
[2021-07-25] MEDS: DIVALPROEX SODIUM 500 MG ER TABLET PO SCH (20:46)
[2021-07-26] MEDS: HydrOXYzine PAMOATE 50 MG CAPSULE PO PRN (01:20)
[2021-07-26 01:29] VITALS: BP 118/83
[2021-07-26 05:21] VITALS: BP 141/77
[2021-07-26] MEDS: LORazepam 2 MG TABLET PO PRN ×2 (05:50→18:00)
[2021-07-26] MEDS: OLANZapine 5 MG RAPDIS TABLET PO PRN (07:45)
[2021-07-26] MEDS: OMEGA-3/DHA/EPA/FISH OIL 1,000 MG CAPSULE PO SCH (07:51)
[2021-07-26] MEDS: MULTIVITAMINS WITH MINERALS, THERAPEUTIC TABLET PO SCH (07:51)
[2021-07-26] MEDS: THIAMINE 100 MG TABLET PO SCH ×2 (07:51→16:10)
[2021-07-26] MEDS: NALTREXONE HCL 50 MG TABLET PO SCH (07:58)
[2021-07-26] MEDS: FOLIC ACID 1 MG TABLET PO SCH (07:58)
[2021-07-26 09:00] VITALS: BP 143/100
[2021-07-26] MEDS ORDERED: PALIPERIDONE PALMITATE 156 MG/ML SYRINGE IM ONE (09:00)
[2021-07-26 16:59] VITALS: BP 124/68
[2021-07-26] MEDS: OLANZapine 10 MG RAPDIS TABLET PO SCH (20:13)
[2021-07-26] MEDS: DIVALPROEX SODIUM 500 MG ER TABLET PO SCH (20:14)
[2021-07-27 00:38] VITALS: BP 121/72
[2021-07-27] MEDS: GuaiFENesin/D-METHORPHAN [SUGAR-FREE] 200-20MG/10 ML SYRUP UDCUP PO PRN (00:40)
[2021-07-27] MEDS: ZOLPIDEM TARTRATE 10 MG TABLET PO PRN ×2 (00:40→20:54)
[2021-07-27] MEDS: LORazepam 2 MG TABLET PO PRN ×4 (02:26→23:00)
[2021-07-27] MEDS: HydrOXYzine PAMOATE 50 MG CAPSULE PO PRN (05:49)
[2021-07-27 08:21] VITALS: BP 130/74
[2021-07-27] MEDS: NALTREXONE HCL 50 MG TABLET PO SCH (09:00)
[2021-07-27] MEDS: FOLIC ACID 1 MG TABLET PO SCH ×2 (09:00→09:13)
[2021-07-27] MEDS: OMEGA-3/DHA/EPA/FISH OIL 1,000 MG CAPSULE PO SCH (09:12)
[2021-07-27] MEDS: MULTIVITAMINS WITH MINERALS, THERAPEUTIC TABLET PO SCH (09:12)
[2021-07-27] MEDS: THIAMINE 100 MG TABLET PO SCH ×2 (09:13→17:38)
[2021-07-27 16:01] VITALS: BP 124/83
[2021-07-27] MEDS: DiphenhydrAMINE HCL 25 MG CAPSULE PO SCH (20:53)
[2021-07-27] MEDS: OLANZapine 10 MG RAPDIS TABLET PO SCH (20:53)
[2021-07-27] MEDS: DIVALPROEX SODIUM 500 MG ER TABLET PO SCH (21:58)
[2021-07-28 04:29] VITALS: BP 130/83
[2021-07-28] MEDS: OLANZapine 5 MG RAPDIS TABLET PO PRN ×2 (05:25→13:57)
[2021-07-28 08:54] VITALS: BP 121/86
[2021-07-28] MEDS: NALTREXONE HCL 50 MG TABLET PO SCH (09:00)
[2021-07-28] MEDS: FOLIC ACID 1 MG TABLET PO SCH (09:00)
[2021-07-28 09:24] LABS: COVID AG,FIA SOURCE NASAL SWAB
[2021-07-28] MEDS: OMEGA-3/DHA/EPA/FISH OIL 1,000 MG CAPSULE PO SCH (09:27)
[2021-07-28] MEDS: THIAMINE 100 MG TABLET PO SCH ×2 (09:27→17:12)
[2021-07-28] MEDS: MULTIVITAMINS WITH MINERALS, THERAPEUTIC TABLET PO SCH (09:27)
[2021-07-28 16:02] VITALS: BP 108/81
[2021-07-28] MEDS: LORazepam 2 MG TABLET PO PRN (17:12)
[2021-07-28] MEDS: DIVALPROEX SODIUM 500 MG ER TABLET PO SCH (21:25)
[2021-07-28] MEDS: OLANZapine 10 MG RAPDIS TABLET PO SCH (21:25)
[2021-07-28] MEDS: DiphenhydrAMINE HCL 25 MG CAPSULE PO SCH (21:26)
[2021-07-29 04:25] VITALS: BP 135/75
[2021-07-29] MEDS: NALTREXONE HCL 50 MG TABLET PO SCH (08:15)
[2021-07-29] MEDS: THIAMINE 100 MG TABLET PO SCH ×2 (08:15→17:39)
[2021-07-29] MEDS: FOLIC ACID 1 MG TABLET PO SCH (08:15)
[2021-07-29] MEDS: MULTIVITAMINS WITH MINERALS, THERAPEUTIC TABLET PO SCH (08:15)
[2021-07-29] MEDS: OMEGA-3/DHA/EPA/FISH OIL 1,000 MG CAPSULE PO SCH (08:15)
[2021-07-29] MEDS ORDERED: PALIPERIDONE PALMITATE 156 MG/ML SYRINGE IM ONE (09:00)
[2021-07-29 10:31] VITALS: BP 137/86
[2021-07-29] MEDS: NICOTINE 21 MG/24 HOUR PATCH TD SCH (13:00)
[2021-07-29 16:00] VITALS: BP 105/89
[2021-07-29] MEDS: LORazepam 2 MG TABLET PO PRN (18:36)
[2021-07-29] MEDS: OLANZapine 5 MG RAPDIS TABLET PO PRN (18:43)
[2021-07-29] MEDS: DIVALPROEX SODIUM 500 MG ER TABLET PO SCH (21:10)
[2021-07-29] MEDS: OLANZapine 10 MG RAPDIS TABLET PO SCH (21:10)
[2021-07-29] MEDS: DiphenhydrAMINE HCL 25 MG CAPSULE PO SCH (21:11)
[2021-07-30 01:35] VITALS: BP 115/75
[2021-07-30] MEDS: OMEGA-3/DHA/EPA/FISH OIL 1,000 MG CAPSULE PO SCH (08:10)
[2021-07-30] MEDS: THIAMINE 100 MG TABLET PO SCH ×2 (08:10→17:29)
[2021-07-30] MEDS: NICOTINE 21 MG/24 HOUR PATCH TD SCH (08:10)
[2021-07-30] MEDS: MULTIVITAMINS WITH MINERALS, THERAPEUTIC TABLET PO SCH (08:10)
[2021-07-30] MEDS: FOLIC ACID 1 MG TABLET PO SCH (08:16)
[2021-07-30] MEDS: NALTREXONE HCL 50 MG TABLET PO SCH (08:16)
[2021-07-30 10:11] VITALS: BP 153/109
[2021-07-30] MEDS ORDERED: HALOPERIDOL LACTATE 5 MG/ML VIAL IM ONE (14:45)
[2021-07-30] MEDS ORDERED: LORazepam 2 MG/ML VIAL IM ONE (14:45)
[2021-07-30] MEDS ORDERED: DiphenhydrAMINE HCL 50 MG/ML VIAL IM ONE (14:45)
[2021-07-30] MEDS ORDERED: HALOPERIDOL LACTATE 5 MG/ML VIAL ONE (14:50)
[2021-07-30] MEDS ORDERED: LORazepam 2 MG/ML VIAL ONE (14:50)
[2021-07-30] MEDS ORDERED: DiphenhydrAMINE HCL 50 MG/ML VIAL ONE (14:50)
[2021-07-30 16:30] VITALS: BP 141/86
[2021-07-30] MEDS: LORazepam 2 MG TABLET PO PRN (17:30)
[2021-07-30] MEDS: OLANZapine 10 MG RAPDIS TABLET PO SCH (20:42)
[2021-07-30] MEDS: DIVALPROEX SODIUM 500 MG ER TABLET PO SCH (20:42)
[2021-07-30] MEDS: DiphenhydrAMINE HCL 25 MG CAPSULE PO SCH (21:19)
[2021-07-31] MEDS: NALTREXONE HCL 50 MG TABLET PO SCH (09:00)
[2021-07-31] MEDS: FOLIC ACID 1 MG TABLET PO SCH (09:00)
[2021-07-31] MEDS: OMEGA-3/DHA/EPA/FISH OIL 1,000 MG CAPSULE PO SCH (09:04)
[2021-07-31] MEDS: MULTIVITAMINS WITH MINERALS, THERAPEUTIC TABLET PO SCH (09:04)
[2021-07-31] MEDS: THIAMINE 100 MG TABLET PO SCH ×2 (09:04→17:40)
[2021-07-31] MEDS: NICOTINE 7 MG/24 HOUR PATCH TD SCH (09:07)
[2021-07-31 09:09] VITALS: BP 97/59
[2021-07-31 16:30] VITALS: BP 109/76
[2021-07-31] MEDS: LITHIUM CARBONATE 300 MG CAPSULE PO SCH (17:40)
[2021-07-31] MEDS: LORazepam 2 MG TABLET PO PRN (17:40)
[2021-07-31] MEDS: DIVALPROEX SODIUM 500 MG ER TABLET PO SCH (21:39)
[2021-07-31] MEDS: OLANZapine 10 MG RAPDIS TABLET PO SCH (21:39)
[2021-07-31] MEDS: DiphenhydrAMINE HCL 25 MG CAPSULE PO SCH (21:39)
[2021-08-01 03:00] VITALS: BP 115/82
[2021-08-01] MEDS: THIAMINE 100 MG TABLET PO SCH (08:33)
[2021-08-01] MEDS: NICOTINE 7 MG/24 HOUR PATCH TD SCH (08:33)
[2021-08-01] MEDS: MULTIVITAMINS WITH MINERALS, THERAPEUTIC TABLET PO SCH (08:33)
[2021-08-01] MEDS: FOLIC ACID 1 MG TABLET PO SCH (08:35)
[2021-08-01] MEDS: LITHIUM CARBONATE 300 MG CAPSULE PO SCH ×3 (08:35→17:00)
[2021-08-01] MEDS: OMEGA-3/DHA/EPA/FISH OIL 1,000 MG CAPSULE PO SCH ×2 (08:35→11:56)
[2021-08-01] MEDS: NALTREXONE HCL 50 MG TABLET PO SCH (08:35)
[2021-08-01] MEDS ORDERED: MAGNESIUM CITRATE 300 ML ORAL SOLUTION PO ONE (15:45)
[2021-08-01 16:21] VITALS: BP 120/81
[2021-08-01 17:02] VITALS: BP 120/81
[2021-08-01] MEDS: LORazepam 2 MG TABLET PO PRN (17:02)
[2021-08-01] MEDS: NEOMYCIN/POLYMYXIN B/HYDROCORT 10 ML OTIC SOLUTION AS SCH (18:55)
[2021-08-01] MEDS: DiphenhydrAMINE HCL 25 MG CAPSULE PO SCH (20:30)
[2021-08-01] MEDS: OLANZapine 10 MG RAPDIS TABLET PO SCH (20:30)
[2021-08-02 08:54] VITALS: BP 144/89
[2021-08-02] MEDS: OMEGA-3/DHA/EPA/FISH OIL 1,000 MG CAPSULE PO SCH ×2 (09:00→11:46)
[2021-08-02] MEDS: NALTREXONE HCL 50 MG TABLET PO SCH (09:00)
[2021-08-02] MEDS: VALPROIC ACID 250 MG/5 ML SOLUTION UDCUP PO SCH ×3 (09:00→16:13)
[2021-08-02] MEDS: NICOTINE 7 MG/24 HOUR PATCH TD SCH (09:00)
[2021-08-02] MEDS: LITHIUM CARBONATE 300 MG CAPSULE PO SCH ×3 (09:00→16:12)
[2021-08-02] MEDS: MULTIVITAMINS WITH MINERALS, THERAPEUTIC TABLET PO SCH (09:17)
[2021-08-02] MEDS: NEOMYCIN/POLYMYXIN B/HYDROCORT 10 ML OTIC SOLUTION AS SCH ×3 (09:18→16:14)
[2021-08-02] MEDS: LORazepam 2 MG TABLET PO PRN ×2 (16:12→20:45)
[2021-08-02 17:04] VITALS: BP 135/61
[2021-08-02] MEDS: OLANZapine 10 MG RAPDIS TABLET PO SCH (20:18)
[2021-08-02] MEDS: DiphenhydrAMINE HCL 25 MG CAPSULE PO SCH (20:18)
[2021-08-03 00:10] VITALS: BP 140/80
[2021-08-03] MEDS: ZOLPIDEM TARTRATE 10 MG TABLET PO PRN (00:24)
[2021-08-03] MEDS: MULTIVITAMINS WITH MINERALS, THERAPEUTIC TABLET PO SCH (08:45)
[2021-08-03] MEDS: NEOMYCIN/POLYMYXIN B/HYDROCORT 10 ML OTIC SOLUTION AS SCH ×3 (08:45→16:55)
[2021-08-03] MEDS: LITHIUM CARBONATE 300 MG CAPSULE PO SCH ×4 (08:45→16:55)
[2021-08-03] MEDS: NALTREXONE HCL 50 MG TABLET PO SCH (08:45)
[2021-08-03] MEDS: OMEGA-3/DHA/EPA/FISH OIL 1,000 MG CAPSULE PO SCH (08:45)
[2021-08-03] MEDS: VALPROIC ACID 250 MG/5 ML SOLUTION UDCUP PO SCH ×4 (08:45→16:55)
[2021-08-03] MEDS: NICOTINE 7 MG/24 HOUR PATCH TD SCH (14:01)
[2021-08-03] MEDS: LORazepam 2 MG TABLET PO PRN (16:03)
[2021-08-03 16:46] VITALS: BP 128/81
[2021-08-03] MEDS: OLANZapine 10 MG RAPDIS TABLET PO SCH (20:21)
[2021-08-03] MEDS: DiphenhydrAMINE HCL 25 MG CAPSULE PO SCH (20:23)
[2021-08-04 03:00] VITALS: BP 135/76
[2021-08-04] MEDS: NEOMYCIN/POLYMYXIN B/HYDROCORT 10 ML OTIC SOLUTION AS SCH ×3 (08:31→16:53)
[2021-08-04] MEDS: MULTIVITAMINS WITH MINERALS, THERAPEUTIC TABLET PO SCH (08:32)
[2021-08-04] MEDS: NALTREXONE HCL 50 MG TABLET PO SCH (08:33)
[2021-08-04] MEDS: OMEGA-3/DHA/EPA/FISH OIL 1,000 MG CAPSULE PO SCH (08:33)
[2021-08-04] MEDS: NICOTINE 7 MG/24 HOUR PATCH TD SCH (08:39)
[2021-08-04] MEDS: LITHIUM CARBONATE 300 MG CAPSULE PO SCH ×3 (08:40→16:52)
[2021-08-04] MEDS: VALPROIC ACID 250 MG/5 ML SOLUTION UDCUP PO SCH ×3 (08:40→16:52)
[2021-08-04 13:17] LABS: COVID AG,FIA SOURCE NASOPHARYNGEAL
[2021-08-04 16:43] VITALS: BP 150/84
[2021-08-04 16:51] VITALS: BP 150/84
[2021-08-04] MEDS: LORazepam 2 MG TABLET PO PRN (16:51)
[2021-08-04] MEDS: DiphenhydrAMINE HCL 25 MG CAPSULE PO SCH (20:57)
[2021-08-04] MEDS: OLANZapine 10 MG RAPDIS TABLET PO SCH (20:57)
[2021-08-05] MEDS: LITHIUM CARBONATE 300 MG CAPSULE PO SCH ×4 (08:17→16:53)
[2021-08-05] MEDS: OMEGA-3/DHA/EPA/FISH OIL 1,000 MG CAPSULE PO SCH (08:17)
[2021-08-05] MEDS: MULTIVITAMINS WITH MINERALS, THERAPEUTIC TABLET PO SCH (08:17)
[2021-08-05] MEDS: NALTREXONE HCL 50 MG TABLET PO SCH (09:00)
[2021-08-05] MEDS: VALPROIC ACID 250 MG/5 ML SOLUTION UDCUP PO SCH ×3 (09:00→16:53)
[2021-08-05] MEDS: NICOTINE 7 MG/24 HOUR PATCH TD SCH (09:00)
[2021-08-05] MEDS ORDERED: NICOTINE 7 MG/24 HOUR PATCH TD ONE (16:45)
[2021-08-05] MEDS: DiphenhydrAMINE HCL 25 MG CAPSULE PO SCH (20:10)
[2021-08-05] MEDS: ZOLPIDEM TARTRATE 10 MG TABLET PO PRN (20:10)
[2021-08-05] MEDS: OLANZapine 10 MG RAPDIS TABLET PO SCH (20:20)
[2021-08-06 08:00] VITALS: BP 134/79
[2021-08-06] MEDS: MULTIVITAMINS WITH MINERALS, THERAPEUTIC TABLET PO SCH (08:11)
[2021-08-06] MEDS: NICOTINE 7 MG/24 HOUR PATCH TD SCH (08:13)
[2021-08-06] MEDS: LITHIUM CARBONATE 300 MG CAPSULE PO SCH ×3 (08:13→17:39)
[2021-08-06] MEDS: OMEGA-3/DHA/EPA/FISH OIL 1,000 MG CAPSULE PO SCH (08:13)
[2021-08-06] MEDS: NALTREXONE HCL 50 MG TABLET PO SCH (08:13)
[2021-08-06] MEDS: VALPROIC ACID 250 MG/5 ML SOLUTION UDCUP PO SCH ×3 (08:13→17:39)
[2021-08-06 15:31] VITALS: BP 145/93
[2021-08-06] MEDS: LORazepam 2 MG TABLET PO PRN (15:31)
[2021-08-06] MEDS ORDERED: DiphenhydrAMINE HCL 25 MG CAPSULE PO SCH (21:00)
[2021-08-06] MEDS: OLANZapine 10 MG RAPDIS TABLET PO SCH (21:12)
[2021-08-06] MEDS: DiphenhydrAMINE HCL 25 MG/10 ML SOLUTION UDCUP PO SCH (21:14)
[2021-08-07 04:00] VITALS: BP 147/82
[2021-08-07 08:00] VITALS: BP 146/89
[2021-08-07] MEDS: DiphenhydrAMINE HCL 25 MG/10 ML SOLUTION UDCUP PO SCH ×4 (08:33→20:30)
[2021-08-07] MEDS: MULTIVITAMINS WITH MINERALS, THERAPEUTIC TABLET PO SCH (08:33)
[2021-08-07] MEDS: OMEGA-3/DHA/EPA/FISH OIL 1,000 MG CAPSULE PO SCH (09:00)
[2021-08-07] MEDS: LITHIUM CARBONATE 300 MG CAPSULE PO SCH ×3 (09:00→16:47)
[2021-08-07] MEDS: NALTREXONE HCL 50 MG TABLET PO SCH (09:00)
[2021-08-07] MEDS: VALPROIC ACID 250 MG/5 ML SOLUTION UDCUP PO SCH ×3 (09:00→16:47)
[2021-08-07] MEDS: NICOTINE 7 MG/24 HOUR PATCH TD SCH (09:00)
[2021-08-07] MEDS: LORazepam 2 MG TABLET PO PRN (16:29)
[2021-08-07 18:20] VITALS: BP 119/79
[2021-08-07] MEDS: OLANZapine 10 MG RAPDIS TABLET PO SCH (20:31)
[2021-08-08 05:44] VITALS: BP 139/80
[2021-08-08 08:00] VITALS: BP 142/90
[2021-08-08] MEDS: LITHIUM CARBONATE 300 MG CAPSULE PO SCH ×3 (09:00→17:00)
[2021-08-08] MEDS: VALPROIC ACID 250 MG/5 ML SOLUTION UDCUP PO SCH ×3 (09:00→17:00)
[2021-08-08] MEDS: NALTREXONE HCL 50 MG TABLET PO SCH (09:00)
[2021-08-08] MEDS: NICOTINE 7 MG/24 HOUR PATCH TD SCH (09:00)
[2021-08-08] MEDS: OMEGA-3/DHA/EPA/FISH OIL 1,000 MG CAPSULE PO SCH (09:00)
[2021-08-08] MEDS: DiphenhydrAMINE HCL 25 MG/10 ML SOLUTION UDCUP PO SCH ×4 (09:56→20:07)
[2021-08-08] MEDS: MULTIVITAMINS WITH MINERALS, THERAPEUTIC TABLET PO SCH (09:57)
[2021-08-08 20:09] VITALS: BP 138/78
[2021-08-08] MEDS: LORazepam 2 MG TABLET PO PRN (20:09)
[2021-08-08] MEDS: OLANZapine 10 MG RAPDIS TABLET PO SCH (20:10)
[2021-08-09 08:30] VITALS: BP 113/86
[2021-08-09] MEDS: MULTIVITAMINS WITH MINERALS, THERAPEUTIC TABLET PO SCH (08:54)
[2021-08-09] MEDS: DiphenhydrAMINE HCL 25 MG/10 ML SOLUTION UDCUP PO SCH ×4 (08:55→21:47)
[2021-08-09] MEDS: VALPROIC ACID 250 MG/5 ML SOLUTION UDCUP PO SCH ×3 (09:00→17:00)
[2021-08-09] MEDS: OMEGA-3/DHA/EPA/FISH OIL 1,000 MG CAPSULE PO SCH (09:00)
[2021-08-09] MEDS: NICOTINE 7 MG/24 HOUR PATCH TD SCH (09:00)
[2021-08-09] MEDS: LITHIUM CARBONATE 300 MG CAPSULE PO SCH ×3 (09:00→17:00)
[2021-08-09] MEDS: NALTREXONE HCL 50 MG TABLET PO SCH (09:00)
[2021-08-09 09:18] VITALS: BP 113/86
[2021-08-09 16:00] VITALS: BP 125/77
[2021-08-09] MEDS: OLANZapine 10 MG RAPDIS TABLET PO SCH (20:17)
[2021-08-09] MEDS: ZOLPIDEM TARTRATE 10 MG TABLET PO PRN (22:27)
[2021-08-10] MEDS: DiphenhydrAMINE HCL 25 MG/10 ML SOLUTION UDCUP PO SCH ×4 (08:42→21:38)
[2021-08-10] MEDS: NICOTINE 7 MG/24 HOUR PATCH TD SCH (08:42)
[2021-08-10] MEDS: OMEGA-3/DHA/EPA/FISH OIL 1,000 MG CAPSULE PO SCH (08:43)
[2021-08-10] MEDS: LITHIUM CARBONATE 300 MG CAPSULE PO SCH ×3 (08:43→18:02)
[2021-08-10] MEDS: MULTIVITAMINS WITH MINERALS, THERAPEUTIC TABLET PO SCH (08:43)
[2021-08-10] MEDS: NALTREXONE HCL 50 MG TABLET PO SCH (08:43)
[2021-08-10] MEDS: VALPROIC ACID 250 MG/5 ML SOLUTION UDCUP PO SCH ×3 (08:44→18:02)
[2021-08-10 08:50] VITALS: BP 137/93
[2021-08-10 16:46] VITALS: BP 158/90
[2021-08-10] MEDS: OLANZapine 10 MG RAPDIS TABLET PO SCH (21:38)
[2021-08-10] MEDS: LORazepam 2 MG TABLET PO PRN (21:38)
[2021-08-11] MEDS: LITHIUM CARBONATE 300 MG CAPSULE PO SCH ×3 (08:27→17:41)
[2021-08-11] MEDS: VALPROIC ACID 250 MG/5 ML SOLUTION UDCUP PO SCH ×3 (08:27→17:41)
[2021-08-11] MEDS: DiphenhydrAMINE HCL 25 MG/10 ML SOLUTION UDCUP PO SCH ×4 (08:27→21:04)
[2021-08-11] MEDS: NICOTINE 7 MG/24 HOUR PATCH TD SCH (08:28)
[2021-08-11 08:57] VITALS: BP 130/70
[2021-08-11] MEDS: NALTREXONE HCL 50 MG TABLET PO SCH (09:00)
[2021-08-11] MEDS: OMEGA-3/DHA/EPA/FISH OIL 1,000 MG CAPSULE PO SCH (09:00)
[2021-08-11] MEDS: MULTIVITAMINS WITH MINERALS, THERAPEUTIC TABLET PO SCH (09:00)
[2021-08-11 13:20] LABS: COVID AG,FIA SOURCE NASAL SWAB
[2021-08-11 16:22] VITALS: BP 119/79
[2021-08-11] MEDS: OLANZapine 10 MG RAPDIS TABLET PO SCH (21:04)
[2021-08-11] MEDS: LORazepam 2 MG TABLET PO PRN (21:05)
[2021-08-12 08:00] VITALS: BP 146/90
[2021-08-12] MEDS: NICOTINE 7 MG/24 HOUR PATCH TD SCH (09:00)
[2021-08-12] MEDS: OMEGA-3/DHA/EPA/FISH OIL 1,000 MG CAPSULE PO SCH (09:00)
[2021-08-12] MEDS: VALPROIC ACID 250 MG/5 ML SOLUTION UDCUP PO SCH ×3 (09:05→17:57)
[2021-08-12] MEDS: DiphenhydrAMINE HCL 25 MG/10 ML SOLUTION UDCUP PO SCH ×4 (09:06→21:09)
[2021-08-12] MEDS: LITHIUM CARBONATE 300 MG CAPSULE PO SCH ×3 (09:15→17:56)
[2021-08-12] MEDS: NALTREXONE HCL 50 MG TABLET PO SCH (09:16)
[2021-08-12] MEDS: MULTIVITAMINS WITH MINERALS, THERAPEUTIC TABLET PO SCH (09:17)
[2021-08-12 16:40] VITALS: BP 146/91
[2021-08-12] MEDS: LORazepam 2 MG TABLET PO PRN (17:57)
[2021-08-12] MEDS: MAG HYDROX/AL HYDROX/SIMETH ES 30 ML SUSPENSION UDCUP PO PRN (17:57)
[2021-08-12] MEDS: OLANZapine 10 MG RAPDIS TABLET PO SCH (21:08)
[2021-08-13] VITALS: BP 129/80
[2021-08-13] MEDS: LITHIUM CARBONATE 300 MG CAPSULE PO SCH ×2 (08:22→12:07)
[2021-08-13] MEDS: VALPROIC ACID 250 MG/5 ML SOLUTION UDCUP PO SCH ×2 (08:22→12:07)
[2021-08-13] MEDS: MULTIVITAMINS WITH MINERALS, THERAPEUTIC TABLET PO SCH (08:22)
[2021-08-13] MEDS: DiphenhydrAMINE HCL 25 MG/10 ML SOLUTION UDCUP PO SCH ×2 (08:23→12:07)
[2021-08-13] MEDS: GuanFACINE HCL 1 MG TABLET PO SCH ×2 (08:24→12:10)
[2021-08-13] MEDS: NICOTINE 7 MG/24 HOUR PATCH TD SCH (08:30)
[2021-08-13] MEDS: NALTREXONE HCL 50 MG TABLET PO SCH (09:00)
[2021-08-13] MEDS: OMEGA-3/DHA/EPA/FISH OIL 1,000 MG CAPSULE PO SCH (09:00)
[2021-08-13 09:53] VITALS: BP 118/89
[2021-08-13] MEDS ORDERED: PALIPERIDONE PALMITATE 234 MG/1.5 ML SYRINGE IM ONE (14:45)
[2021-08-13] MEDS: ZOLPIDEM TARTRATE 10 MG TABLET PO PRN (20:12)
[2021-08-14] MEDS: ARIPiprazole 5 MG TABLET PO SCH (08:27)
[2021-08-14] MEDS: MULTIVITAMINS WITH MINERALS, THERAPEUTIC TABLET PO SCH (08:28)
[2021-08-14] MEDS: ESCITALOPRAM OXALATE 10 MG TABLET PO SCH (08:28)
[2021-08-14] MEDS: NALTREXONE HCL 50 MG TABLET PO SCH (09:00)
[2021-08-14] MEDS: NICOTINE 7 MG/24 HOUR PATCH TD SCH ×2 (09:00→11:34)
[2021-08-14] MEDS: OMEGA-3/DHA/EPA/FISH OIL 1,000 MG CAPSULE PO SCH (09:00)
[2021-08-14] MEDS ORDERED: ARIPiprazole 10 MG TABLET PO SCH (09:00)
[2021-08-14 09:21] VITALS: BP 135/79
[2021-08-14 16:00] VITALS: BP 139/91
[2021-08-14] MEDS: ZOLPIDEM TARTRATE 10 MG TABLET PO PRN (22:36)
[2021-08-15] MEDS: ESCITALOPRAM OXALATE 10 MG TABLET PO SCH (08:30)
[2021-08-15] MEDS: ARIPiprazole 5 MG TABLET PO SCH (08:31)
[2021-08-15] MEDS: NICOTINE 7 MG/24 HOUR PATCH TD SCH ×2 (09:00→20:21)
[2021-08-15] MEDS: NALTREXONE HCL 50 MG TABLET PO SCH (09:00)
[2021-08-15] MEDS: MULTIVITAMINS WITH MINERALS, THERAPEUTIC TABLET PO SCH (09:00)
[2021-08-15] MEDS: OMEGA-3/DHA/EPA/FISH OIL 1,000 MG CAPSULE PO SCH (09:00)
[2021-08-15 09:42] VITALS: BP 148/77
[2021-08-15] MEDS: MAG HYDROX/AL HYDROX/SIMETH ES 30 ML SUSPENSION UDCUP PO PRN (11:56)
[2021-08-15 16:56] VITALS: BP 129/74
[2021-08-15] MEDS: ZOLPIDEM TARTRATE 10 MG TABLET PO PRN (23:49)
[2021-08-16 01:10] VITALS: BP 142/82
[2021-08-16] MEDS: MULTIVITAMINS WITH MINERALS, THERAPEUTIC TABLET PO SCH (07:53)
[2021-08-16] MEDS: ARIPiprazole 5 MG TABLET PO SCH (07:53)
[2021-08-16] MEDS: ESCITALOPRAM OXALATE 10 MG TABLET PO SCH (07:53)
[2021-08-16 08:00] VITALS: BP 122/83
[2021-08-16] MEDS: OMEGA-3/DHA/EPA/FISH OIL 1,000 MG CAPSULE PO SCH (08:10)
[2021-08-16] MEDS: NALTREXONE HCL 50 MG TABLET PO SCH (08:10)
[2021-08-16] MEDS: MAG HYDROX/AL HYDROX/SIMETH ES 30 ML SUSPENSION UDCUP PO PRN ×2 (08:37→20:44)
[2021-08-16] MEDS: ZOLPIDEM TARTRATE 10 MG TABLET PO PRN (23:52)
[2021-08-17 01:36] VITALS: BP 144/85
[2021-08-17] MEDS: MAG HYDROX/AL HYDROX/SIMETH ES 30 ML SUSPENSION UDCUP PO PRN ×2 (07:18→19:52)
[2021-08-17 08:48] VITALS: BP 139/96
[2021-08-17] MEDS: NALTREXONE HCL 50 MG TABLET PO SCH (09:00)
[2021-08-17] MEDS: NICOTINE 7 MG/24 HOUR PATCH TD SCH (09:00)
[2021-08-17] MEDS: OMEGA-3/DHA/EPA/FISH OIL 1,000 MG CAPSULE PO SCH (09:00)
[2021-08-17] MEDS ORDERED: PALIPERIDONE PALMITATE 156 MG/ML SYRINGE IM ONE (09:00)
[2021-08-17] MEDS: MULTIVITAMINS WITH MINERALS, THERAPEUTIC TABLET PO SCH (09:45)
[2021-08-17] MEDS: ESCITALOPRAM OXALATE 10 MG TABLET PO SCH (09:46)
[2021-08-17] MEDS: ARIPiprazole 5 MG TABLET PO SCH (09:46)
[2021-08-17 16:35] VITALS: BP 126/70
[2021-08-18] MEDS: ZOLPIDEM TARTRATE 10 MG TABLET PO PRN (00:19)
[2021-08-18 00:45] VITALS: BP 130/76
[2021-08-18 08:52] VITALS: BP 138/99
[2021-08-18] MEDS: OMEGA-3/DHA/EPA/FISH OIL 1,000 MG CAPSULE PO SCH (09:00)
[2021-08-18] MEDS: NICOTINE 7 MG/24 HOUR PATCH TD SCH (09:00)
[2021-08-18] MEDS: NALTREXONE HCL 50 MG TABLET PO SCH (09:00)
[2021-08-18] MEDS: ESCITALOPRAM OXALATE 10 MG TABLET PO SCH (09:17)
[2021-08-18] MEDS: MULTIVITAMINS WITH MINERALS, THERAPEUTIC TABLET PO SCH (09:17)
[2021-08-18] MEDS: ARIPiprazole 5 MG TABLET PO SCH (09:18)
[2021-08-18 15:40] LABS: COVID AG,FIA SOURCE NASAL SWAB
[2021-08-18 17:03] VITALS: BP 139/84
[2021-08-18] MEDS: MAG HYDROX/AL HYDROX/SIMETH ES 30 ML SUSPENSION UDCUP PO PRN (19:12)
[2021-08-19] VITALS: BP 100/61
[2021-08-19] MEDS: ZOLPIDEM TARTRATE 10 MG TABLET PO PRN (00:27)
[2021-08-19] MEDS: MULTIVITAMINS WITH MINERALS, THERAPEUTIC TABLET PO SCH (08:37)
[2021-08-19] MEDS: OMEGA-3/DHA/EPA/FISH OIL 1,000 MG CAPSULE PO SCH (09:00)
[2021-08-19] MEDS: NALTREXONE HCL 50 MG TABLET PO SCH (09:00)
[2021-08-19] MEDS: NICOTINE 7 MG/24 HOUR PATCH TD SCH (09:00)
[2021-08-19] MEDS: ARIPiprazole 5 MG TABLET PO SCH (09:00)
[2021-08-19] MEDS: ESCITALOPRAM OXALATE 10 MG TABLET PO SCH (09:00)
[2021-08-19 09:30] VITALS: BP 113/73
[2021-08-19 17:13] VITALS: BP 123/77
[2021-08-20] MEDS: ESCITALOPRAM OXALATE 10 MG TABLET PO SCH (08:26)
[2021-08-20] MEDS: ARIPiprazole 5 MG TABLET PO SCH (08:26)
[2021-08-20] MEDS: MULTIVITAMINS WITH MINERALS, THERAPEUTIC TABLET PO SCH (08:27)
[2021-08-20 08:50] VITALS: BP 119/80
[2021-08-20] MEDS: NALTREXONE HCL 50 MG TABLET PO SCH (09:00)
[2021-08-20] MEDS: NICOTINE 7 MG/24 HOUR PATCH TD SCH (09:00)
[2021-08-20] MEDS: OMEGA-3/DHA/EPA/FISH OIL 1,000 MG CAPSULE PO SCH (09:00)
[2021-08-20 16:27] VITALS: BP 140/72
[2021-08-21 00:05] VITALS: BP 107/67
[2021-08-21] MEDS: MULTIVITAMINS WITH MINERALS, THERAPEUTIC TABLET PO SCH (08:56)
[2021-08-21] MEDS: ARIPiprazole 5 MG TABLET PO SCH (08:56)
[2021-08-21] MEDS: ESCITALOPRAM OXALATE 10 MG TABLET PO SCH (08:56)
[2021-08-21] MEDS: NICOTINE 7 MG/24 HOUR PATCH TD SCH (08:58)
[2021-08-21] MEDS: OMEGA-3/DHA/EPA/FISH OIL 1,000 MG CAPSULE PO SCH (08:58)
[2021-08-21] MEDS: NALTREXONE HCL 50 MG TABLET PO SCH (08:58)
[2021-08-21 09:35] VITALS: BP 115/75
[2021-08-21 16:49] VITALS: BP 129/72
[2021-08-22] MEDS: GuaiFENesin/D-METHORPHAN [SUGAR-FREE] 200-20MG/10 ML SYRUP UDCUP PO PRN (04:28)
[2021-08-22 04:36] VITALS: BP 135/74
[2021-08-22] MEDS: ESCITALOPRAM OXALATE 10 MG TABLET PO SCH (08:05)
[2021-08-22] MEDS: MULTIVITAMINS WITH MINERALS, THERAPEUTIC TABLET PO SCH (08:06)
[2021-08-22] MEDS: ARIPiprazole 5 MG TABLET PO SCH (08:06)
[2021-08-22 08:50] VITALS: BP 126/78
[2021-08-22] MEDS: NALTREXONE HCL 50 MG TABLET PO SCH (09:00)
[2021-08-22] MEDS: OMEGA-3/DHA/EPA/FISH OIL 1,000 MG CAPSULE PO SCH (09:00)
[2021-08-22] MEDS: NICOTINE 7 MG/24 HOUR PATCH TD SCH (09:00)
[2021-08-22] MEDS: OLANZapine 5 MG RAPDIS TABLET PO SCH ×4 (13:00→21:07)
[2021-08-22] MEDS: DiphenhydrAMINE HCL 25 MG/10 ML SOLUTION UDCUP PO SCH ×2 (13:03→17:00)
[2021-08-22 16:00] VITALS: BP 128/80
[2021-08-22] MEDS: DiphenhydrAMINE HCL 50 MG CAPSULE PO SCH (21:06)
[2021-08-23] MEDS: MULTIVITAMINS WITH MINERALS, THERAPEUTIC TABLET PO SCH (08:26)
[2021-08-23] MEDS: DiphenhydrAMINE HCL 25 MG/10 ML SOLUTION UDCUP PO SCH ×3 (08:26→17:07)
[2021-08-23 08:44] VITALS: BP 127/77
[2021-08-23] MEDS: NALTREXONE HCL 50 MG TABLET PO SCH (09:00)
[2021-08-23] MEDS: OLANZapine 5 MG RAPDIS TABLET PO SCH ×5 (09:00→21:00)
[2021-08-23] MEDS: OMEGA-3/DHA/EPA/FISH OIL 1,000 MG CAPSULE PO SCH (09:00)
[2021-08-23] MEDS: NICOTINE 7 MG/24 HOUR PATCH TD SCH (09:00)
[2021-08-23] MEDS: MAG HYDROX/AL HYDROX/SIMETH ES 30 ML SUSPENSION UDCUP PO PRN (13:36)
[2021-08-23] MEDS: DiphenhydrAMINE HCL 50 MG CAPSULE PO SCH ×3 (20:00→23:58)
[2021-08-24 00:01] VITALS: BP 128/90
[2021-08-24] MEDS: ZOLPIDEM TARTRATE 10 MG TABLET PO PRN (02:15)
[2021-08-24] MEDS: DiphenhydrAMINE HCL 25 MG/10 ML SOLUTION UDCUP PO SCH ×3 (08:19→18:55)
[2021-08-24] MEDS: MAG HYDROX/AL HYDROX/SIMETH ES 30 ML SUSPENSION UDCUP PO PRN (08:28)
[2021-08-24 08:50] VITALS: BP 143/76
[2021-08-24] MEDS: OMEGA-3/DHA/EPA/FISH OIL 1,000 MG CAPSULE PO SCH (09:00)
[2021-08-24] MEDS: NALTREXONE HCL 50 MG TABLET PO SCH (09:00)
[2021-08-24] MEDS: NICOTINE 7 MG/24 HOUR PATCH TD SCH (09:00)
[2021-08-24] MEDS: MULTIVITAMINS WITH MINERALS, THERAPEUTIC TABLET PO SCH (09:00)
[2021-08-24] MEDS: OLANZapine 5 MG RAPDIS TABLET PO SCH ×4 (09:00→20:39)
[2021-08-24 16:00] VITALS: BP 135/99
[2021-08-25 00:15] VITALS: BP 127/73
[2021-08-25] MEDS: MAG HYDROX/AL HYDROX/SIMETH ES 30 ML SUSPENSION UDCUP PO PRN ×3 (02:16→19:09)
[2021-08-25] MEDS: ZOLPIDEM TARTRATE 10 MG TABLET PO PRN ×2 (03:01→23:52)
[2021-08-25] MEDS: DiphenhydrAMINE HCL 25 MG/10 ML SOLUTION UDCUP PO SCH ×3 (08:08→16:51)
[2021-08-25] MEDS: NALTREXONE HCL 50 MG TABLET PO SCH (08:58)
[2021-08-25] MEDS: MULTIVITAMINS WITH MINERALS, THERAPEUTIC TABLET PO SCH (08:58)
[2021-08-25] MEDS: OMEGA-3/DHA/EPA/FISH OIL 1,000 MG CAPSULE PO SCH (08:58)
[2021-08-25] MEDS: NICOTINE 7 MG/24 HOUR PATCH TD SCH (08:59)
[2021-08-25] MEDS: OLANZapine 5 MG RAPDIS TABLET PO SCH ×4 (08:59→21:00)
[2021-08-25 09:14] LABS: COVID AG,FIA SOURCE NASAL SWAB
[2021-08-25 16:32] VITALS: BP 114/78
[2021-08-25] MEDS: DiphenhydrAMINE HCL 50 MG CAPSULE PO SCH (21:03)
[2021-08-25] MEDS: OLANZapine 5 MG RAPDIS TABLET PO PRN (23:53)
[2021-08-26 00:21] VITALS: BP 114/71
[2021-08-26] MEDS: MULTIVITAMINS WITH MINERALS, THERAPEUTIC TABLET PO SCH (08:32)
[2021-08-26] MEDS: DiphenhydrAMINE HCL 25 MG/10 ML SOLUTION UDCUP PO SCH ×3 (08:33→16:17)
[2021-08-26] MEDS: OMEGA-3/DHA/EPA/FISH OIL 1,000 MG CAPSULE PO SCH (08:35)
[2021-08-26] MEDS: NICOTINE 7 MG/24 HOUR PATCH TD SCH ×2 (08:35→09:42)
[2021-08-26] MEDS: NALTREXONE HCL 50 MG TABLET PO SCH (08:35)
[2021-08-26] MEDS: OLANZapine 5 MG RAPDIS TABLET PO SCH ×4 (08:35→20:30)
[2021-08-26 09:03] VITALS: BP 135/88
[2021-08-26 12:14] VITALS: BP 135/80
[2021-08-26] MEDS: MAG HYDROX/AL HYDROX/SIMETH ES 30 ML SUSPENSION UDCUP PO PRN (12:23)
[2021-08-26 16:00] VITALS: BP 118/72
[2021-08-26] MEDS: CARBAMIDE PEROXIDE 6.5% 15 ML OTIC SOLUTION AU SCH (20:32)
[2021-08-26] MEDS: DiphenhydrAMINE HCL 50 MG CAPSULE PO SCH (22:03)
[2021-08-27 00:14] VITALS: BP 127/77
[2021-08-27] MEDS: ZOLPIDEM TARTRATE 10 MG TABLET PO PRN (00:18)
[2021-08-27] MEDS: DiphenhydrAMINE HCL 25 MG/10 ML SOLUTION UDCUP PO SCH ×3 (08:36→16:53)
[2021-08-27] MEDS: NICOTINE 7 MG/24 HOUR PATCH TD SCH (09:00)
[2021-08-27] MEDS: NALTREXONE HCL 50 MG TABLET PO SCH (09:00)
[2021-08-27] MEDS: MULTIVITAMINS WITH MINERALS, THERAPEUTIC TABLET PO SCH (09:00)
[2021-08-27] MEDS: OLANZapine 5 MG RAPDIS TABLET PO SCH ×4 (09:00→21:29)
[2021-08-27 09:29] VITALS: BP 117/78
[2021-08-27] MEDS ORDERED: HALOPERIDOL LACTATE 5 MG/ML VIAL IM PRN (16:15)
[2021-08-27 16:44] VITALS: BP 118/70
[2021-08-27] MEDS: DiphenhydrAMINE HCL 50 MG CAPSULE PO SCH (21:29)
[2021-08-27] MEDS: CARBAMIDE PEROXIDE 6.5% 15 ML OTIC SOLUTION AU SCH (21:29)
[2021-08-28 01:09] VITALS: BP 114/63
[2021-08-28] MEDS: OLANZapine 5 MG RAPDIS TABLET PO SCH ×4 (08:23→21:47)
[2021-08-28] MEDS: DiphenhydrAMINE HCL 25 MG/10 ML SOLUTION UDCUP PO SCH ×3 (08:26→17:51)
[2021-08-28 09:00] VITALS: BP 140/86
[2021-08-28] MEDS: MULTIVITAMINS WITH MINERALS, THERAPEUTIC TABLET PO SCH (09:00)
[2021-08-28] MEDS: NICOTINE 7 MG/24 HOUR PATCH TD SCH (09:00)
[2021-08-28] MEDS: NALTREXONE HCL 50 MG TABLET PO SCH (09:00)
[2021-08-28] MEDS: DiphenhydrAMINE HCL 50 MG CAPSULE PO SCH (21:47)
[2021-08-28] MEDS: CARBAMIDE PEROXIDE 6.5% 15 ML OTIC SOLUTION AU SCH (21:48)
[2021-08-29] MEDS: DiphenhydrAMINE HCL 25 MG/10 ML SOLUTION UDCUP PO SCH ×3 (08:34→17:00)
[2021-08-29] MEDS: OLANZapine 5 MG RAPDIS TABLET PO SCH ×4 (08:35→21:00)
[2021-08-29] MEDS: MULTIVITAMINS WITH MINERALS, THERAPEUTIC TABLET PO SCH (08:58)
[2021-08-29] MEDS: NICOTINE 7 MG/24 HOUR PATCH TD SCH (08:58)
[2021-08-29] MEDS: NALTREXONE HCL 50 MG TABLET PO SCH (08:58)
[2021-08-29 10:34] VITALS: BP 153/86
[2021-08-29 16:27] VITALS: BP 123/77
[2021-08-29] MEDS: DiphenhydrAMINE HCL 50 MG CAPSULE PO SCH (20:58)
[2021-08-29] MEDS: CARBAMIDE PEROXIDE 6.5% 15 ML OTIC SOLUTION AU SCH (21:00)
[2021-08-30 00:30] VITALS: BP 126/80
[2021-08-30] MEDS: ZOLPIDEM TARTRATE 10 MG TABLET PO PRN (00:48)
[2021-08-30] MEDS: GuanFACINE HCL 1 MG TABLET PO PRN (00:48)
[2021-08-30] MEDS: OLANZapine 5 MG RAPDIS TABLET PO SCH ×4 (08:21→20:37)
[2021-08-30] MEDS: DiphenhydrAMINE HCL 25 MG/10 ML SOLUTION UDCUP PO SCH ×4 (08:26→20:36)
[2021-08-30] MEDS: MULTIVITAMINS WITH MINERALS, THERAPEUTIC TABLET PO SCH (08:44)
[2021-08-30] MEDS: NALTREXONE HCL 50 MG TABLET PO SCH (08:44)
[2021-08-30] MEDS: NICOTINE 7 MG/24 HOUR PATCH TD SCH (08:44)
[2021-08-30 16:57] VITALS: BP 118/73
[2021-08-30] MEDS: CARBAMIDE PEROXIDE 6.5% 15 ML OTIC SOLUTION AU SCH (20:39)
[2021-08-31 01:00] VITALS: BP 115/70
[2021-08-31] MEDS: ZOLPIDEM TARTRATE 10 MG TABLET PO PRN (01:16)
[2021-08-31] MEDS: GuanFACINE HCL 1 MG TABLET PO PRN (01:19)
[2021-08-31] MEDS: NALTREXONE HCL 50 MG TABLET PO SCH (09:00)
[2021-08-31] MEDS: NICOTINE 7 MG/24 HOUR PATCH TD SCH (09:00)
[2021-08-31] MEDS: MULTIVITAMINS WITH MINERALS, THERAPEUTIC TABLET PO SCH (09:54)
[2021-08-31] MEDS: OLANZapine 5 MG RAPDIS TABLET PO SCH ×4 (09:58→20:43)
[2021-08-31] MEDS: DiphenhydrAMINE HCL 25 MG/10 ML SOLUTION UDCUP PO SCH ×4 (10:44→20:43)
[2021-08-31 16:14] VITALS: BP 142/89
[2021-08-31] MEDS: CARBAMIDE PEROXIDE 6.5% 15 ML OTIC SOLUTION AU SCH (20:43)
[2021-09-01] MEDS: GuanFACINE HCL 1 MG TABLET PO PRN ×2 (01:04→20:23)
[2021-09-01] MEDS: ZOLPIDEM TARTRATE 10 MG TABLET PO PRN (01:04)
[2021-09-01] MEDS: OLANZapine 5 MG RAPDIS TABLET PO SCH ×4 (08:45→21:11)
[2021-09-01] MEDS: DiphenhydrAMINE HCL 25 MG/10 ML SOLUTION UDCUP PO SCH ×4 (08:45→21:11)
[2021-09-01] MEDS: MULTIVITAMINS WITH MINERALS, THERAPEUTIC TABLET PO SCH (08:45)
[2021-09-01] MEDS: NICOTINE 7 MG/24 HOUR PATCH TD SCH (08:45)
[2021-09-01] MEDS: NALTREXONE HCL 50 MG TABLET PO SCH (08:47)
[2021-09-01 11:28] LABS: COVID AG,FIA SOURCE NASAL SWAB
[2021-09-01 17:48] VITALS: BP 115/71
[2021-09-01] MEDS: CARBAMIDE PEROXIDE 6.5% 15 ML OTIC SOLUTION AU SCH (21:29)
[2021-09-01] MEDS: OLANZapine 5 MG RAPDIS TABLET PO PRN (23:56)
[2021-09-01] MEDS: MAG HYDROX/AL HYDROX/SIMETH ES 30 ML SUSPENSION UDCUP PO PRN (23:56)
[2021-09-02 01:40] VITALS: BP 112/75
[2021-09-02] MEDS: ZOLPIDEM TARTRATE 10 MG TABLET PO PRN ×2 (02:47→22:35)
[2021-09-02 08:15] VITALS: BP 114/66
[2021-09-02] MEDS: MULTIVITAMINS WITH MINERALS, THERAPEUTIC TABLET PO SCH (08:27)
[2021-09-02] MEDS: DiphenhydrAMINE HCL 25 MG/10 ML SOLUTION UDCUP PO SCH ×4 (08:27→20:05)
[2021-09-02] MEDS: NICOTINE 7 MG/24 HOUR PATCH TD SCH (08:27)
[2021-09-02] MEDS: OLANZapine 5 MG RAPDIS TABLET PO SCH ×3 (08:27→16:18)
[2021-09-02] MEDS: NALTREXONE HCL 50 MG TABLET PO SCH (08:28)
[2021-09-02] MEDS: MAG HYDROX/AL HYDROX/SIMETH ES 30 ML SUSPENSION UDCUP PO PRN (12:33)
[2021-09-02 16:00] VITALS: BP 116/74
[2021-09-02] MEDS ORDERED: HALOPERIDOL LACTATE 5 MG/ML VIAL IM PRN (19:00)
[2021-09-02] MEDS: GuanFACINE HCL 1 MG TABLET PO PRN (21:16)
[2021-09-02] MEDS: CARBAMIDE PEROXIDE 6.5% 15 ML OTIC SOLUTION AU SCH (21:17)
[2021-09-03 02:58] VITALS: BP 115/72
[2021-09-03] MEDS: OLANZapine 5 MG RAPDIS TABLET PO SCH ×3 (08:15→16:51)
[2021-09-03] MEDS: DiphenhydrAMINE HCL 25 MG/10 ML SOLUTION UDCUP PO SCH ×4 (08:16→20:55)
[2021-09-03] MEDS: NALTREXONE HCL 50 MG TABLET PO SCH (08:43)
[2021-09-03] MEDS: NICOTINE 7 MG/24 HOUR PATCH TD SCH (08:43)
[2021-09-03] MEDS: MULTIVITAMINS WITH MINERALS, THERAPEUTIC TABLET PO SCH (08:43)
[2021-09-03 08:44] VITALS: BP 132/77
[2021-09-03] MEDS: GuanFACINE HCL 1 MG TABLET PO PRN ×2 (14:49→21:21)
[2021-09-03] MEDS: MAG HYDROX/AL HYDROX/SIMETH ES 30 ML SUSPENSION UDCUP PO PRN (16:07)
[2021-09-03 16:28] VITALS: BP 134/88
[2021-09-03] MEDS: CARBAMIDE PEROXIDE 6.5% 15 ML OTIC SOLUTION AU SCH ×2 (20:55→21:19)
[2021-09-03] MEDS ORDERED: HALOPERIDOL LACTATE 5 MG/ML VIAL IM PRN (22:00)
[2021-09-03] MEDS: ZOLPIDEM TARTRATE 10 MG TABLET PO PRN (23:54)
[2021-09-04 00:01] VITALS: BP 119/72
[2021-09-04] MEDS: GuanFACINE HCL 1 MG TABLET PO PRN ×2 (06:39→17:59)
[2021-09-04] MEDS: MAG HYDROX/AL HYDROX/SIMETH ES 30 ML SUSPENSION UDCUP PO PRN ×2 (07:18→17:59)
[2021-09-04] MEDS: MULTIVITAMINS WITH MINERALS, THERAPEUTIC TABLET PO SCH (08:28)
[2021-09-04] MEDS: OLANZapine 10 MG RAPDIS TABLET PO SCH ×2 (08:28→11:56)
[2021-09-04] MEDS: DiphenhydrAMINE HCL 25 MG/10 ML SOLUTION UDCUP PO SCH ×5 (08:28→20:11)
[2021-09-04] MEDS: NALTREXONE HCL 50 MG TABLET PO SCH ×2 (08:28→09:00)
[2021-09-04] MEDS: NICOTINE 7 MG/24 HOUR PATCH TD SCH ×2 (08:29→09:00)
[2021-09-04 16:00] VITALS: BP 100/65
[2021-09-04] MEDS: GuanFACINE HCL 1 MG TABLET PO SCH (22:32)
[2021-09-05 01:30] VITALS: BP 102/63
[2021-09-05] MEDS: ZOLPIDEM TARTRATE 10 MG TABLET PO PRN (01:50)
[2021-09-05] MEDS: GuanFACINE HCL 1 MG TABLET PO PRN (01:51)
[2021-09-05] MEDS: NALTREXONE HCL 50 MG TABLET PO SCH (09:00)
[2021-09-05] MEDS: NICOTINE 7 MG/24 HOUR PATCH TD SCH (09:00)
[2021-09-05] MEDS: MULTIVITAMINS WITH MINERALS, THERAPEUTIC TABLET PO SCH (09:00)
[2021-09-05] MEDS: GuanFACINE HCL 1 MG TABLET PO SCH ×2 (09:20→20:22)
[2021-09-05] MEDS: DiphenhydrAMINE HCL 25 MG/10 ML SOLUTION UDCUP PO SCH ×4 (09:20→20:22)
[2021-09-05] MEDS: OLANZapine 10 MG RAPDIS TABLET PO SCH ×2 (09:20→13:49)
[2021-09-05 09:32] VITALS: BP 97/60
[2021-09-05 16:49] VITALS: BP 99/60
[2021-09-05] MEDS: CARBAMIDE PEROXIDE 6.5% 15 ML OTIC SOLUTION AU SCH (21:01)
[2021-09-05] MEDS ORDERED: MAGNESIUM CITRATE 300 ML ORAL SOLUTION PO ONE (21:30)
[2021-09-06] MEDS: GuanFACINE HCL 1 MG TABLET PO PRN (00:25)
[2021-09-06] MEDS: MAG HYDROX/AL HYDROX/SIMETH ES 30 ML SUSPENSION UDCUP PO PRN ×3 (00:26→19:05)
[2021-09-06 01:00] VITALS: BP 105/69
[2021-09-06] MEDS ORDERED: MAGNESIUM CITRATE 300 ML ORAL SOLUTION PO ONE (07:00)
[2021-09-06] MEDS: NICOTINE 7 MG/24 HOUR PATCH TD SCH (09:00)
[2021-09-06] MEDS: NALTREXONE HCL 50 MG TABLET PO SCH (09:00)
[2021-09-06] MEDS: MULTIVITAMINS WITH MINERALS, THERAPEUTIC TABLET PO SCH (09:00)
[2021-09-06 09:10] VITALS: BP 115/57
[2021-09-06] MEDS: GuanFACINE HCL 1 MG TABLET PO SCH ×2 (09:38→20:51)
[2021-09-06] MEDS: DiphenhydrAMINE HCL 25 MG/10 ML SOLUTION UDCUP PO SCH ×4 (09:38→20:51)
[2021-09-06] MEDS: OLANZapine 10 MG RAPDIS TABLET PO SCH ×2 (09:39→13:35)
[2021-09-06 16:30] VITALS: BP 116/70
[2021-09-06] MEDS: CARBAMIDE PEROXIDE 6.5% 15 ML OTIC SOLUTION AU SCH (20:51)
[2021-09-07 04:44] VITALS: BP 104/68
[2021-09-07] MEDS: DiphenhydrAMINE HCL 25 MG/10 ML SOLUTION UDCUP PO SCH ×4 (08:01→21:17)
[2021-09-07] MEDS: OLANZapine 10 MG RAPDIS TABLET PO SCH ×2 (08:02→13:19)
[2021-09-07] MEDS: GuanFACINE HCL 1 MG TABLET PO SCH ×2 (08:02→21:17)
[2021-09-07] MEDS: MULTIVITAMINS WITH MINERALS, THERAPEUTIC TABLET PO SCH (08:02)
[2021-09-07] MEDS: NALTREXONE HCL 50 MG TABLET PO SCH ×2 (08:05→08:06)
[2021-09-07] MEDS: NICOTINE 7 MG/24 HOUR PATCH TD SCH (08:06)
[2021-09-07 16:19] VITALS: BP 99/69
[2021-09-07] MEDS: CARBAMIDE PEROXIDE 6.5% 15 ML OTIC SOLUTION AU SCH (21:00)
[2021-09-08 01:21] VITALS: BP 106/75
[2021-09-08] MEDS: MULTIVITAMINS WITH MINERALS, THERAPEUTIC TABLET PO SCH (07:48)
[2021-09-08] MEDS: OLANZapine 10 MG RAPDIS TABLET PO SCH ×2 (07:48→12:25)
[2021-09-08] MEDS: GuanFACINE HCL 1 MG TABLET PO SCH ×2 (07:49→20:57)
[2021-09-08] MEDS: DiphenhydrAMINE HCL 25 MG/10 ML SOLUTION UDCUP PO SCH ×4 (07:49→20:57)
[2021-09-08] MEDS: NALTREXONE HCL 50 MG TABLET PO SCH (07:51)
[2021-09-08] MEDS: NICOTINE 7 MG/24 HOUR PATCH TD SCH (07:51)
[2021-09-08 09:54] VITALS: BP 136/87
[2021-09-08 13:00] LABS: COVID AG,FIA SOURCE NASOPHARYNGEAL
[2021-09-08 16:31] VITALS: BP 131/78
[2021-09-08] MEDS: CARBAMIDE PEROXIDE 6.5% 15 ML OTIC SOLUTION AU SCH (20:56)
[2021-09-09] MEDS: DiphenhydrAMINE HCL 25 MG/10 ML SOLUTION UDCUP PO SCH ×4 (08:08→20:11)
[2021-09-09] MEDS: MULTIVITAMINS WITH MINERALS, THERAPEUTIC TABLET PO SCH (08:09)
[2021-09-09] MEDS: OLANZapine 10 MG RAPDIS TABLET PO SCH ×2 (08:09→12:11)
[2021-09-09] MEDS: GuanFACINE HCL 1 MG TABLET PO SCH ×2 (08:09→20:11)
[2021-09-09] MEDS: NALTREXONE HCL 50 MG TABLET PO SCH (08:10)
[2021-09-09] MEDS: NICOTINE 7 MG/24 HOUR PATCH TD SCH (08:11)
[2021-09-09 09:30] VITALS: BP 120/74
[2021-09-09] MEDS ORDERED: GUAN1TAB2 PO (13:14)
[2021-09-09] MEDS ORDERED: DIPH-966 PO (13:14)
[2021-09-09] MEDS ORDERED: OLAN10TA26 PO (13:14)
[2021-09-09] MEDS ORDERED: NALT50TA PO (13:14)
[2021-09-09 16:43] VITALS: BP 126/70
[2021-09-09] MEDS: CARBAMIDE PEROXIDE 6.5% 15 ML OTIC SOLUTION AU SCH (20:11)
[2021-09-10] MEDS: GuanFACINE HCL 1 MG TABLET PO PRN (00:17)
[2021-09-10 00:30] VITALS: BP 119/72
[2021-09-10 08:00] VITALS: BP 137/84
[2021-09-10] MEDS: NALTREXONE HCL 50 MG TABLET PO SCH (09:00)
[2021-09-10] MEDS: NICOTINE 7 MG/24 HOUR PATCH TD SCH (09:00)
[2021-09-10] MEDS: OLANZapine 10 MG RAPDIS TABLET PO SCH ×2 (09:52→12:19)
[2021-09-10] MEDS: GuanFACINE HCL 1 MG TABLET PO SCH (09:52)
[2021-09-10] MEDS: MULTIVITAMINS WITH MINERALS, THERAPEUTIC TABLET PO SCH (09:52)
[2021-09-10] MEDS: DiphenhydrAMINE HCL 25 MG/10 ML SOLUTION UDCUP PO SCH ×2 (09:53→12:19)
[2021-09-10] MEDS ORDERED: CARB-188 AU (14:38)
[2021-09-10] MEDS ORDERED: MULT1CAP36 PO (14:39)
== END 2021-09-10 16:15 | disposition home or self-care (01) | DRG 750 ==
LOC: EMS 13:11 → 3EI 16:11 → 3EC 17:27 → 3EI 07-24 14:41
PROVIDERS: ADMIT Psychiatry & Neurology Psychiatry; ATTEND Psychiatry & Neurology Psychiatry
DX: F25.0 Schizoaffective disorder, bipolar type (principal); Z91.14 Patient's other noncompliance with medication regimen; F12.10 Cannabis abuse, uncomplicated; F41.0 Panic disorder [episodic paroxysmal anxiety]; F84.0 Autistic disorder; K59.00 Constipation, unspecified; F32.9 Major depressive disorder, single episode, unspecified; Z20.822 Contact with and (suspected) exposure to COVID-19; Z59.9 Problem related to housing and economic circumstances, unspecified; Z65.3 Problems related to other legal circumstances; Z79.899 Other long term (current) drug therapy; Z81.8 Family history of other mental and behavioral disorders; Z87.891 Personal history of nicotine dependence; Z91.19 Patient's noncompliance with other medical treatment and regimen
CPT/HCPCS: 70460; 80053; 80164; 80307; 81003; 85025; 99291; G0480; J1200; J1630; J2060